=== PATIENT | female | born 1945 | race Caucasian/White ===

== ENCOUNTER 2016-12-09 14:09 | Observation (INO) | payer OTHER ==
[~2016-12-09] VITALS: Ht 167.6 cm; Wt 65.0 kg
[2016-12-09 14:09] VITALS: BP 178/83; PULSE 89; RESP 16; TEMP 97.8; O2SAT 97
[~2016-12-09 14:09] MED LIST: LACT20SO4 PO; TAB-TAB PO
--- NOTE | 2016-12-09 14:57 | PD ---
HPI Chief Complaint: Medical Clearance Time Seen by Provider: 14:57 Travel History International Travel<30 days: No Contact w/Intl Traveler<30days: No Traveled to known affect area: No History of Present Illness HPI 71-year-old female with a history of CAD, CVA, diabetes, GERD, hypertension, metastatic breast cancer currently receiving chemotherapy last dose 12/01/16 is brought to the emergency department for medical clearance and psychiatric evaluation. The patient is not completely sure why she was brought to the emergency department. She states that she is having some social issues amongst some of the other residents at her assisted living facility but states she has a safe home environment and is able to take care of herself at home. She was sent here from Dr. Ceron' office for psychiatric evaluation. The patient denies any fever, chills, nausea, vomiting, lightheadedness, dizziness, chest pain, short of breath, abdominal pain. She denies suicidal or homicidal ideations. Denies alcohol or drug use. Denies auditory or visual hallucinations. No other complaints. PFSH Past Medical History Arthritis: Yes Anxiety: No Depression: No Heart Rhythm Problems: Yes Cancer: Yes (right breast) Cardiac Catheterization: Yes (STENT PLACEMENT) Cardiovascular Problems: Yes Chest Pain: Yes Cerebrovascular Accident: Yes Diabetes: Yes Patient Takes Glucophage: Yes Diminished Hearing: No Endocrine: Yes (DIABETES) Gastrointestinal Disorders: Yes (gerd) GERD: Yes Genitourinary: No Hepatitis: No Hiatal Hernia: Yes Hypertension: Yes Immune Disorder: No Implanted Vascular Access Dvce: Yes Musculoskeletal: Yes (HIP) Neurologic: No Psychiatric: No Reproductive: Yes (HYSTERCTOMY) Respiratory: No Thyroid Disease: No PNEUMOCCOCAL Vaccine (Year): 1 Menopausal: Yes : 1 Para: 2 Past Surgical History Surgical History: Unable to Obtain Abdominal Surgery: Yes (HYSTERECTOMY) Appendectomy: Yes Body Medical Devices: L HIP REPLACEMENT Cardiac Surgery: Yes (OPEN HEART pacemaker) Section: Yes Cholecystectomy: Yes Endocrine Surgery: Yes Genitourinary Surgery: No Gynecologic Surgery: Yes Hysterectomy: Yes Joint Replacement: Yes (left hip replacement) Pacemaker: Yes (MEDTRONIC) Other Surgery: Yes Social History Alcohol Use: Yes (OCC) Tobacco Use: No (yrs ago) Substance Use: No Allergies-Medications (Allergen,Severity, Reaction): Coded Allergies: No Known Allergies (Verified , 5/23/16) Reported Meds & Prescriptions Reported Meds & Active Scripts Active Reported Remeron (Mirtazapine) 15 Mg Tab 7.5 Mg PO DAILY Glucophage (Metformin HCl) 500 Mg Tab 1,000 Mg PO BID With meals Review of Systems Except as stated in HPI: all other systems reviewed are Neg Physical Exam Narrative GENERAL: Well-nourished and well-developed pleasant elderly female patient in no acute distress who is nontoxic appearing. SKIN: Warm and dry. HEAD: Normocephalic and atraumatic. No facial droop. EYES: No injection, drainage, or hyphema noted. PERRLA. EOMI. ENT: No nasal drainage noted. Oropharynx is clear. NECK: Supple and the trachea is midline. CARDIOVASCULAR: Regular rate and rhythm. RESPIRATORY: Breath sounds are equal bilaterally with no accessory muscle use, wheezing, rhonchi, or crackles. GASTROINTESTINAL: Abdomen is soft, non-tender, and nondistended. MUSCULOSKELETAL: No obvious deformities, swelling, cyanosis, or ecchymosis is present throughout the upper and lower extremities. Patient has full range of motion without any signs of neurovascular compromise. Strength 5/5 upper and lower extremities equal bilaterally. NEUROLOGICAL: Awake, alert, and oriented. Normal speech and gait. Cranial nerves are grossly intact. Data Data Last Documented VS Vital Signs Date Time Temp Pulse Resp B/P Pulse Ox O2 Delivery O2 Flow Rate FiO2 12/09/16 17:07 98.4 89 20 173/74 97 Room Air Orders Complete Blood Count With Diff (12/09/16 14:59) Comprehensive Metabolic Panel (12/09/16 14:59) Urinalysis - C+S If Indicated (12/09/16 14:59) Drug Screen, Random Urine (12/09/16 15:06) Alcohol (Ethanol) (12/09/16 15:06) Psych Screen (12/09/16 15:06) Ct Brain W/O Iv Contrast(Rout) (12/09/16 16:35) Diet 1800 Ada Cons Carb (12/09/16 Dinner) Vital Signs (Adult) SARAH.Q4H (12/09/16 18:02) ^ Blood Glucose Goal (Criteria (12/09/16 18:02) ^ Hypoglycemia 51 - 69 Mg/Dl (12/09/16 18:02) ^ Hypoglycemia 50 Mg/Dl Or < (12/09/16 18:02) ^ Notify Dr: Other (12/09/16 18:02) Dextrose 50% In Darlin (Vial) Inj (D50w (Vi (12/09/16 18:15) Glucagon Inj (Glucagon Inj) (12/09/16 18:15) Insulin Aspart Supplemtl Scale (Novolog (12/09/16 21:00) Us Carotid Arteries Comp Bilat (12/09/16 ) Neuro Checks . ORDERED (12/09/16 18:02) Admit Order (Ed Use Only) (12/09/16 18:06) Labs Laboratory Tests Test 12/09/16 15:00 White Blood Count 3.4 TH/MM3 Red Blood Count 4.01 MIL/MM3 Hemoglobin 12.0 GM/DL Hematocrit 35.2 % Mean Corpuscular Volume 87.6 FL Mean Corpuscular Hemoglobin 30.0 PG Mean Corpuscular Hemoglobin 34.2 % Concent Red Cell Distribution Width 13.9 % Platelet Count 223 TH/MM3 Mean Platelet Volume 9.9 FL Neutrophils (%) (Auto) 39.6 % Lymphocytes (%) (Auto) 49.7 % Monocytes (%) (Auto) 8.2 % Eosinophils (%) (Auto) 1.2 % Basophils (%) (Auto) 1.3 % Neutrophils # (Auto) 1.4 TH/MM3 Lymphocytes # (Auto) 1.7 TH/MM3 Monocytes # (Auto) 0.3 TH/MM3 Eosinophils # (Auto) 0.0 TH/MM3 Basophils # (Auto) 0.0 TH/MM3 CBC Comment DIFF FINAL Differential Comment Urine Color LIGHT-YELLOW Urine Turbidity CLEAR Urine pH 6.5 Urine Specific [place] 1.012 Urine Protein NEG mg/dL Urine Glucose (UA) 1000 mg/dL Urine Ketones NEG mg/dL Urine Occult Blood NEG Urine Nitrite NEG Urine Bilirubin NEG Urine Urobilinogen LESS THAN 2.0 MG/DL Urine Leukocyte Esterase TRACE Urine WBC 1 /hpf Urine Squamous Epithelial <1 /hpf Cells Urine Mucus FEW /lpf Microscopic Urinalysis Comment CULT NOT INDICATED Sodium Level 140 MEQ/L Potassium Level 3.7 MEQ/L Chloride Level 104 MEQ/L Carbon Dioxide Level 29.3 MEQ/L Anion Gap 7 MEQ/L Blood Urea Nitrogen 11 MG/DL Creatinine 0.70 MG/DL Estimat Glomerular Filtration 82 ML/MIN Rate Random Glucose 193 MG/DL Calcium Level 9.1 MG/DL Total Bilirubin 0.3 MG/DL Aspartate Amino Transf 21 U/L (AST/SGOT) Alanine Aminotransferase 25 U/L (ALT/SGPT) Alkaline Phosphatase 78 U/L Total Protein 8.0 GM/DL Albumin 4.1 GM/DL Urine Opiates Screen NEG Urine Barbiturates Screen NEG Urine Amphetamines Screen NEG Urine Benzodiazepines Screen NEG Urine Cocaine Screen NEG Urine Cannabinoids Screen NEG Ethyl Alcohol Level 3 MG/DL MDM Medical Decision Making Medical Screen Exam Complete: Yes Emergency Medical Condition: Yes Differential Diagnosis Differential: Depression versus adjustment reaction versus anxiety versus PTSD versus psychosis NOS versus mood disorder NOS versus substance induced mood disorder versus ODD versus adjustment reaction versus schizophrenia versus bipolar disorder versus schizoaffective versus electrolyte abnormality versus dementia versus malingering. Narrative Course 71-year-old female is brought to the emergency department for psychiatric evaluation. Patient is afebrile, vital signs are stable. Patient has no medical complaints to report. Physical examination is unremarkable. No focal neurologic deficits. Labs have been drawn and sent. Psych screening was ordered. I had an extensive discussion with Dr. Ceron regarding this patient. Apparently per Dr. Ceron the patient was brought to her office this morning by her [employer] tele[employer] case manager Blessing Rangel who told the office staff at Dr. Ceron's office that the patient had deplorable living conditions for someone undergoing chemotherapy and that she needed psychiatric evaluation and potential placement changes. The patient lives at [facility]. Apparently there was also some concern for lice although the patient denies any scalp itching or history of lice. I looked through the patient's entire scalp and did not see any louse, there was a little bit of dandruff noted. Dr. Ceron explained to me that the patient has been easily upset emotionally in the past but this is not new, she is suspicious of a personality disorder and would like the patient to have psych evaluation to make sure she is not decompensating. I placed a call to [employer] case manager Blessing Rangel am awaiting call back. [id number] [employer] returned my call, she reports she has been taking care of the patient for about 2 months. States that the patient called her this morning in distress stating she did not know where she was. States through conversation with the patient she discerned that she was at a restaurant and drove there to meet the patient. States that when she found the patient the patient was extremely confused, did not know where she was or the year. States that she has never seen the patient confused like this before, states that she does have transient memory issues but never this extent of confusion. States that she called EMS who came and evaluated the patient at the restaurant but ultimately did not transport the patient by EMS. States she then drove the patient to Dr. Ceron' office because she was close by there and thought they would know her better. States her confusion had almost completely resolved by the time she reached the oncology office, this being a total of 3-4 hours of mental status change. She denies ever seeing any objective neurologic deficit such as weakness, facial droop, slurred speech. Given this newfound history, we'll obtain a head CT. Head CT is negative. The patient has a history of stroke in the past. She will be admitted for TIA/CVA work-up as well as psychiatric consultation. I discussed the case with my attending physician Dr. Rodas who is aware of the patients history, physical examination findings, and treatment plan. Physician Communication Physician Communication Dr. Ceron, see above documentation. I spoke with Clifford Mcgarry [facility] who agrees to admit the patient to his service. Diagnosis Primary Impression: Altered mental status Qualified Code: R41.82 - Altered mental status, unspecified altered mental status type Admitting Information Admitting Physician Requests: Observation Cheyenne Howard Dec 09, 2016 14:57
[2016-12-09 15:21] LABS: AUTOMATED NEUTROPHIL # 1.4 TH/MM3 (1.8-7.7); BASOPHIL % 1.3 % (0.0-2.0); EOSINOPHIL % 1.2 % (0.0-4.0); HEMATOCRIT 35.2 % (35.0-46.0); HEMO FLAGS DIFF FINAL; LYMPH % 49.7 % (9.0-44.0); LYMPHOCYTE # 1.7 TH/MM3 (1.0-4.8); MEAN CELL VOLUME 87.6 FL (80.0-100.0); MEAN CORPUSCULAR HGB CONC 34.2 % (32.0-36.0); MONO % 8.2 % (0.0-8.0); NEUT % 39.6 % (16.0-70.0); PLATELET COUNT 223 TH/MM3 (150-450); RED BLOOD COUNT 4.01 MIL/MM3 (4.00-5.30); RED CELL DISTRIBUTION WIDTH 13.9 % (11.6-17.2); WHITE BLOOD COUNT 3.4 TH/MM3 (4.0-11.0)
[2016-12-09 15:27] LABS: AMPHETAMINE, URINE NEG (NEG); BARBITURATES, URINE NEG (NEG); COCAINE, URINE NEG (NEG)
[2016-12-09 15:28] LABS: BLOOD, URINE NEG (NEG); COMMENT (UR) CULT NOT INDICATED; CULTURE IF INDICATED CULT NOT INDICATED; GLUCOSE,URINE 1000 mg/dL (NEG); KETONE, URINE NEG (NEG); MUCUS URINE FEW /lpf (OCC); NITRITE,URINE NEG (NEG); PH, URINE 6.5 (5.0-8.5); SQUAMOUS EPITHELIAL CELL URINE <1 /hpf (0-5); URINE COLOR LIGHT-YELLOW (YELLW/STRAW)
[2016-12-09 15:51] LABS: ALT (GPT) 25 U/L (10-53); ANION GAP 7 MEQ/L (5-15); AST (GOT) 21 U/L (15-37); BICARBONATE 29.3 MEQ/L (21.0-32.0); BLOOD UREA NITROGEN 11 MG/DL (7-18); CHLORIDE 104 MEQ/L (98-107); GLOMERULAR FILTRATION RATE 82 ML/MIN (>89); POTASSIUM 3.7 MEQ/L (3.5-5.1); SODIUM (NA) 140 MEQ/L (136-145)
[2016-12-09 15:53] LABS: ALKALINE PHOSPHATASE 78 U/L (45-117); TOTAL BILIRUBIN ADULT 0.3 MG/DL (0.2-1.0)
[2016-12-09] MEDS ORDERED: METF500 PO (16:05)
[2016-12-09] MEDS ORDERED: REME15TA PO (16:06)
[2016-12-09 17:07] VITALS: BP 173/74; PULSE 89; RESP 20; TEMP 98.4; O2SAT 97
--- NOTE | 2016-12-09 17:37 | RADRPT ---
EXAM DATE/TIME: 12/09/2016 17:30 [facility] COMPARISON: No previous studies available for comparison. INDICATIONS : Altered mental status; confusion. RADIATION DOSE: 40.14 CTDIvol (mGy) MEDICAL HISTORY : Cerebrovascular disease. Cardiovascular disease Carcinoma, breast. SURGICAL HISTORY : None. ENCOUNTER: Initial ACUITY: 1 day PAIN SCALE: 0/10 LOCATION: cranial TECHNIQUE: Multiple contiguous axial images were obtained of the head. Using automated exposure control and adj ustment of the mA and/or kV according to patient size, radiation dose was kept as low as reasonably a chievable to obtain optimal diagnostic quality images. FINDINGS: CEREBRUM: The ventricles are normal for age. No evidence of midline shift, mass lesion, hemorrhage or acute in farction. No extra-axial fluid collections are seen. POSTERIOR FOSSA: The cerebellum and brainstem are intact. The 4th ventricle is midline. The cerebellopontine angle i s unremarkable. EXTRACRANIAL: The visualized portion of the orbits is intact. SKULL: The calvaria is intact. No evidence of skull fracture. CONCLUSION: Normal examination for a patient of this age. Garrick Omalley MD on December 09, 2016 at 17:35 Board Certified Radiologist. This report was verified electronically.
[2016-12-09] MEDS ORDERED: GLUCAGON 1 MG/ML VIAL OTHER PRN (18:15)
[2016-12-09] MEDS ORDERED: DEXTROSE 50% IN WATER 50 ML VIAL(D50) IV PUSH PRN (18:15)
--- NOTE | 2016-12-09 18:26 | HHI.HP ---
[facility] Primary Care Physician Jd Bell MD Admission Diagnosis Altered Mental Status Diagnoses: (1) Altered mental status Diagnosis: Principal Chief Complaint: confusional episode Travel History International Travel<30 Days: No Contact w/Intl Traveler <30 Da: No Traveled to Known Affected Are: No History of Present Illness patient is a 71 y/o female with history of metastatic breast cancer, CAD, CVA and diabetes who was brought to ER with confusional episode. apparently the patient was noticed to be disoriented and confused by [employer] residential case manager earlier today. the patient was advised to come to ER by for psychiatric evaluation. at the time of my evaluation she was awake, alert, oriented to person, place and time. she knows that she got confused earlier today. she doesn't recall any previous episodes of confusion in the past. Review of Systems Constitutional: DENIES: Fever, Weight loss, Chills, Night Sweats Eyes: DENIES: Blurred vision, Diplopia, Vision loss, Double Vision Ears, nose, mouth, throat: DENIES: Tinnitus, Vertigo, Throat pain, Epistaxis Respiratory: DENIES: Apneas, Cough, Snoring, Wheezing, Hemoptysis, Sputum production, Shortness of breath Cardiovascular: DENIES: Chest pain, Palpitations, Syncope, Dyspnea on Exertion , PND, Lower Extremity Edema, Orthopnea, Claudication Gastrointestinal: DENIES: Abdominal pain, Black stools, Bloody stools, Constipation, Diarrhea, Nausea, Vomiting, Difficulty Swallowing, Anorexia Genitourinary: DENIES: Urinary frequency, Urgency, Hematuria, Dysuria Musculoskeletal: DENIES: Joint pain, Muscle aches, Stiffness, Joint Swelling Integumentary: DENIES: Rash Neurologic: DENIES: Abnormal gait, Headache, Localized weakness, Paresthesias, Seizures, Speech Problems, Tremor, Poor Balance Psychiatric: COMPLAINS OF: Confusion, DENIES: Anxiety, Mood changes, Depression, Hallucinations, Agitation, Suicidal Ideation, Homicidal Ideation, Delusions Past Family Social History Past Medical History metastatic breast cancer CAD CVA diabetes mellitus Past Surgical History CABG hysterectomy hip surgery Reported Medications Remeron (Mirtazapine) 15 Mg Tab 7.5 Mg PO DAILY Glucophage (Metformin HCl) 500 Mg Tab 1,000 Mg PO BID With meals Allergies: Coded Allergies: No Known Allergies (Verified , 04/06/16) Active Ordered Medications Current Medications Dextrose (D50w (Vial) Inj) 25 ml UNSCH PRN IV PUSH HYPOGLYCEMIA-SEE COMMENTS; Start 12/09/16 at 18:15; Status UNV Glucagon (Glucagon Inj) 1 mg UNSCH PRN OTHER HYPOGLYCEMIA-SEE COMMENTS; Start 12/09/16 at 18:15; Status UNV Insulin Aspart (NovoLOG SUPPLEMENTAL SCALE) 1 ACHS SLIDING SCALE SQ ; Start at 21:00; Status UNV Family History not relevant to this admission. Social History no smoking or drinking. Physical Exam Vital Signs Vital Signs Date Time Temp Pulse Resp B/P Pulse Ox O2 Delivery O2 Flow Rate FiO2 12/09/16 17:07 98.4 89 20 173/74 97 Room Air 12/09/16 14:09 97.8 89 16 178/83 97 Physical Exam GENERAL: This is a well-nourished, well-developed patient, in no apparent distress. SKIN: No rashes, ecchymoses or lesions. Cool and dry. HEAD: Atraumatic. Normocephalic. No temporal or scalp tenderness. EYES: Pupils equal round and reactive. Extraocular motions intact. No scleral icterus. No injection or drainage. ENT: Nose without bleeding, purulent drainage or septal hematoma. Throat without erythema, tonsillar hypertrophy or exudate. Uvula midline. Airway patent. NECK: Trachea midline. No JVD or lymphadenopathy. Supple, nontender, no meningeal signs. CARDIOVASCULAR: Regular rate and rhythm without murmurs, gallops, or rubs. RESPIRATORY: Clear to auscultation. Breath sounds equal bilaterally. No wheezes , rales, or rhonchi. GASTROINTESTINAL: Abdomen soft, non-tender, nondistended. No hepato-splenomegaly , or palpable masses. No guarding. MUSCULOSKELETAL: Extremities without clubbing, cyanosis, or edema. No joint tenderness, effusion, or edema noted. No calf tenderness. Negative Homans sign bilaterally. NEUROLOGICAL: Awake and alert. Cranial nerves II through XII intact. Motor and sensory grossly within normal limits. Five out of 5 muscle strength in all muscle groups. Normal speech. Laboratory Laboratory Tests Test 12/09/16 15:00 White Blood Count 3.4 Red Blood Count 4.01 Hemoglobin 12.0 Hematocrit 35.2 Mean Corpuscular Volume 87.6 Mean Corpuscular Hemoglobin 30.0 Mean Corpuscular Hemoglobin 34.2 Concent Red Cell Distribution Width 13.9 Platelet Count 223 Mean Platelet Volume 9.9 Neutrophils (%) (Auto) 39.6 Lymphocytes (%) (Auto) 49.7 Monocytes (%) (Auto) 8.2 Eosinophils (%) (Auto) 1.2 Basophils (%) (Auto) 1.3 Neutrophils # (Auto) 1.4 Lymphocytes # (Auto) 1.7 Monocytes # (Auto) 0.3 Eosinophils # (Auto) 0.0 Basophils # (Auto) 0.0 CBC Comment DIFF FINAL Differential Comment Urine Color LIGHT-YELLOW Urine Turbidity CLEAR Urine pH 6.5 Urine Specific Ong 1.012 Urine Protein NEG Urine Glucose (UA) 1000 Urine Ketones NEG Urine Occult Blood NEG Urine Nitrite NEG Urine Bilirubin NEG Urine Urobilinogen LESS THAN 2.0 Urine Leukocyte Esterase TRACE Urine WBC 1 Urine Squamous Epithelial <1 Cells Urine Mucus FEW Microscopic Urinalysis Comment CULT NOT INDICATED Sodium Level 140 Potassium Level 3.7 Chloride Level 104 Carbon Dioxide Level 29.3 Anion Gap 7 Blood Urea Nitrogen 11 Creatinine 0.70 Estimat Glomerular Filtration 82 Rate Random Glucose 193 Calcium Level 9.1 Total Bilirubin 0.3 Aspartate Amino Transf 21 (AST/SGOT) Alanine Aminotransferase 25 (ALT/SGPT) Alkaline Phosphatase 78 Total Protein 8.0 Albumin 4.1 Urine Opiates Screen NEG Urine Barbiturates Screen NEG Urine Amphetamines Screen NEG Urine Benzodiazepines Screen NEG Urine Cocaine Screen NEG Urine Cannabinoids Screen NEG Ethyl Alcohol Level 3 Result Diagram: 12/09/16 1500 12/09/16 1500 Imaging Last Impressions Head CT 12/09/16 1635 Signed Impressions: Service Date/Time: Friday, December 09, 2016 17:30 - CONCLUSION: Normal examination for a patient of this age. Garrick Omalley MD Assessment and Plan Assessment and Plan A/P - confusional episode with history of CVA CT head normal- continue neuro-checks- check carotid doppler and consult neurology and psych -metastatic breast cancer- f/u with -CAD- s/p CABG- f/u as outpatient -DVT prophylaxis with SCD's Discussed Condition With ER physician, the patient and her RN. Problem Qualifiers (1) Altered mental status: Qualified Code: R41.82 - Altered mental status, unspecified altered mental status type Ethan Horton MD Dec 09, 2016 18:26
[2016-12-09] MEDS ORDERED: ACETAMINOPHEN 325 MG TAB PO PRN (18:30)
[2016-12-09] MEDS ORDERED: ONDANSETRON HCL 4 MG/2 ML VIAL IV PUSH PRN (18:30)
[2016-12-09] MEDS ORDERED: ENALAPRILAT 1.25 MG/ML VIAL IV PUSH PRN (18:30)
[2016-12-09 18:53] VITALS: BP 150/87; PULSE 83; RESP 18; O2SAT 97
--- NOTE | 2016-12-09 19:53 | RADRPT ---
EXAM DATE/TIME: 12/09/2016 18:55 [facility] COMPARISON: No previous studies available for comparison. INDICATIONS : Transient ischemic attack. MEDICAL HISTORY : Gastroesophageal reflux disease. . Cerebrovascular accident. Irregular heartbeat. Hiatal h ernia. Arthritis. Diabetes. Right breast cancer. SURGICAL HISTORY : Pacemaker. Appendectomy. Cholecystectomy. Hysterectomy. Coronary artery stent. Left hip replacement. ENCOUNTER: Initial ACUITY: 1 day PAIN SCORE: 0/10 LOCATION: Bilateral neck PEAK SYSTOLIC VELOCITIES (cm/sec): ICA/CCA RATIO: Right: 1.7 Left: 0.8 ICA: Right: 114 Left: 72 CCA: Right: 68 Left: 91 ECA: Right: 105 Left: 111 VERTEBRAL: Right: 62 antegrade Left: 52 antegrade Elevated flow velocities and ICA/CCA ratios have been found to correlate with increased degrees of vessel stenosis, calculated as percentage of diameter relative to a normal segment of distal ICA/CCA FINDINGS: RIGHT CAROTID: No significant stenosis is visualized. Mild calcific plaque is present in the bulb. The waveforms ar e within normal limits. LEFT CAROTID: No significant stenosis is visualized. Mild calcific plaque is present in the bulb. The waveforms are within normal limits. VERTEBRAL ARTERIES: Antegrade flow is seen in both vertebral arteries. MISCELLANEOUS: None. CONCLUSION: Mild bilateral calcific plaquing with no evidence of stenosis. Deepak Martin MD on December 09, 2016 at 19:51 Board Certified Radiologist. This report was verified electronically.
[2016-12-09] MEDS: INSULIN ASPART SUPPLEMENTAL SCALE SQ SCH (22:25)
[2016-12-09 23:16] VITALS: BP 132/74; PULSE 74; RESP 16; O2SAT 98
[2016-12-10] VITALS (8 sets, daily range): BP systolic 140–176; BP diastolic 66–96; PULSE 68–79; RESP 16–20; TEMP 96.6–97.4; O2SAT 96–100
[2016-12-10] MEDS: INSULIN ASPART SUPPLEMENTAL SCALE SQ SCH ×4 (07:00→21:46)
--- NOTE | 2016-12-10 09:47 | HHI.PR ---
Subjective Remarks resting comfortably with no distress. still seems pleasantly and slightly confused. Objective Vitals Vital Signs Date Time Temp Pulse Resp B/P Pulse Ox O2 Delivery O2 Flow Rate FiO2 12/10/16 03:57 68 16 100 Room Air 12/09/16 23:16 74 16 132/74 98 Room Air 12/09/16 18:53 83 18 150/87 97 Room Air 12/09/16 17:07 98.4 89 20 173/74 97 Room Air 12/09/16 14:09 97.8 89 16 178/83 97 Result Diagram: 12/09/16 1500 12/09/16 1500 Imaging Last Impressions Head CT 12/09/16 1635 Signed Impressions: Service Date/Time: Friday, December 09, 2016 17:30 - CONCLUSION: Normal examination for a patient of this age. Garrick Omalley MD Carotid Artery Ultrasound 12/09/16 0000 Signed Impressions: Service Date/Time: Friday, December 09, 2016 18:55 - CONCLUSION: Mild bilateral calcific plaquing with no evidence of stenosis. Deepak Martin MD Objective Remarks GENERAL: This is a well-nourished, well-developed patient, in no apparent distress. CARDIOVASCULAR: Regular rate and regular rhythm without murmurs, gallops, or rubs. RESPIRATORY: Clear to auscultation. Breath sounds equal bilaterally. No wheezes , rales, or rhonchi. GASTROINTESTINAL: Abdomen soft, non-tender, nondistended. Normal, active bowel sounds MUSCULOSKELETAL: Extremities without clubbing, cyanosis, or edema. NEURO: Alert & Oriented x4 to person, place, time, situation. Moves all ext x4 Procedures none Medications and IVs Current Medications Dextrose (D50w (Vial) Inj) 25 ml UNSCH PRN IV PUSH HYPOGLYCEMIA-SEE COMMENTS; Start 12/09/16 at 18:15 Glucagon (Glucagon Inj) 1 mg UNSCH PRN OTHER HYPOGLYCEMIA-SEE COMMENTS; Start 12/09/16 at 18:15 Insulin Aspart (NovoLOG SUPPLEMENTAL SCALE) 1 ACHS SLIDING SCALE SQ Last administered on 12/09/16t 22:25; Start 12/09/16 at 21:00 Ondansetron HCl (Zofran Inj) 4 mg Q8HR PRN IV PUSH NAUSEA; Start 12/09/16 at 18 :30 Acetaminophen (Tylenol) 650 mg Q4H PRN PO FEVER/PAIN; Start 12/09/16 at 18:30 Enalaprilat (Vasotec Inj) 1.25 mg Q8H PRN IV PUSH SBP> OR = 180, DBP> OR = 100 ; Start 12/09/16 at 18:30 A/P Assessment and Plan - confusional episode with history of CVA CT head normal- carotid doppler negative-continue neuro-checks- consulted neurology and psych. -metastatic breast cancer- f/u with -CAD- s/p CABG- f/u as outpatient -DVT prophylaxis with SCD's Discharge Planning awaiting psych and neurology evaluation. Ethan Horton MD Dec 10, 2016 09:47
--- NOTE | 2016-12-10 11:52 | RADRPT ---
EXAM DATE/TIME: 12/10/2016 11:32 [facility] COMPARISON: CHEST SINGLE AP, January 24, 2016, 16:20. INDICATIONS : Chest pain. MEDICAL HISTORY : Carcinoma, breast. SURGICAL HISTORY : CABG. Mastectomy, bilateral. Port placement. ENCOUNTER: Initial ACUITY: 1 day PAIN SCORE: 2/10 LOCATION: Bilateral chest FINDINGS: Frontal and lateral views of the chest demonstrate a normal-sized cardiac silhouette in this patient post median sternotomy and valve replacement. Coronary artery stent is also visualized. There is a le ft chest wall [id number] present with distal tip in the superior vena cava. No effusion, consolida tion, or pneumothorax is identified. Bones and soft tissues demonstrate no acute finding. CONCLUSION: No acute cardiopulmonary abnormality is identified. Jd Alexander MD on December 10, 2016 at 11:49 Board Certified Radiologist. This report was verified electronically.
[2016-12-10] MEDS: OLANZapine 2.5 MG TAB PO SCH ×2 (12:00→21:45)
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
--- NOTE | 2016-12-10 16:20 | EKG ---
Date Performed: 12/09/2016 Time Performed: 20:00:03 PTAGE: 71 years EKG: Sinus rhythm WITH FIRST DEGREE AV BLOCK INFERIOR MYOCARDIAL INFARCTION Compared to prior tracing no significant c hange ABNORMAL ECG PREVIOUS TRACING 11/01/2015 @00.00.16 DOCTOR: Rafi Thompson Interpretating Date/Time 12/10/2016 16:18:46
[2016-12-10] MEDS ORDERED: GADODIAMIDE PF 287 MG/ML 5 ML VIAL (for RAD MRI) IV ONE (17:03)
--- NOTE | 2016-12-10 17:48 | RADRPT ---
EXAM DATE/TIME: 12/10/2016 16:52 [facility] COMPARISON: No previous studies available for comparison. INDICATIONS : Altered mental status. CONTRAST: 13 cc Omniscan (gadodiamide) IV MEDICAL HISTORY : Carcinoma, breast. Arthritis. Gastroesophageal reflux disease. Diabetes. SURGICAL HISTORY : Hysterectomy. Appendectomy. Cholecystectomy. Port placement. Bi-lateral mastectomy. Cardiac stent. Ca rdiac valve replacement. Left DEISY. Pacemaker placement and removal. ENCOUNTER: Subsequent ACUITY: 2 day PAIN SCORE: 0/10 LOCATION: cranial TECHNIQUE: Multiplanar, multisequence MRI of the brain was performed both prior to and following the administrat ion of paramagnetic contrast. FINDINGS: CEREBRUM: The ventricles are normal for age. No evidence of midline shift, mass lesion, hemorrhage or acute in farction. No extraaxial fluid collections are seen. The pituitary gland and suprasellar cistern are normal in configuration. WHITE MATTER: There are some scattered areas of increased T2 signal in the white matter most consistent with mild m icrovascular ischemic demyelinative change. No significant signal abnormalities are seen in the white matter. POSTERIOR FOSSA: The cerebellum and brainstem are intact. The 4th ventricle is midline. The cerebellopontine angle is unremarkable. The cerebellar tonsils are normal in position. DIFFUSION IMAGING: No focal areas of restricted diffusion are seen. No evidence of acute infarction. EXTRACRANIAL: The visualized portions of the orbits and paranasal sinuses are unremarkable. POST-CONTRAST: No abnormal areas of parenchymal or dural enhancement. No evidence of blood-brain barrier breakdown. CONCLUSION: 1. Negative examination. Migel Roa MD on December 10, 2016 at 17:42 Board Certified Radiologist. This report was verified electronically.
[2016-12-11 03:42] VITALS: BP 150/68; PULSE 70; RESP 19; TEMP 96.9; O2SAT 96
[2016-12-11] MEDS: INSULIN ASPART SUPPLEMENTAL SCALE SQ SCH ×3 (06:28→17:29)
--- NOTE | 2016-12-11 07:01 | MG ---
cc: GLORIA KOLB M.D. Lab No: [id number]___ Date: 12/10/2016 Age: 71 Sex: F Race: __ INDICATIONS An EEG was obtained on this 71-year-old patient with a history of social issues, CVA, confusion, pacemaker. MEDICATIONS REMERON, INSULIN, GLUCOPHAGE DESCRIPTION The EEG is showing predominantly low to mid amplitude 8-10 per second activity in the central and posterior head regions. There is low amplitude beta rhythms diffusely. Photic stimulation shows some driving response bilaterally. There are theta and delta rhythms during the drowsiness recording. Hyperventilation was not performed. INTERPRETATION This is a normal awake and asleep EEG. MD TARI Patel/MICHELLE /7:58 PM /6:58 AM
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
[2016-12-11] MEDS ORDERED: OLAN2.5T PO (07:47)
--- NOTE | 2016-12-11 07:47 | HHI.DCPOC ---
Discharge Care Plan Diagnosis: (1) Unspecified psychosis Your Health Problems Are: Anxiety Difficulty with ADL Goals to Promote Your Health * To prevent worsening of your condition and complications * To maintain your health at the optimal level Directions to Meet Your Goals Take your medications as prescribed Follow your dietary instruction Follow activity as directed Keep your appointments as scheduled Take your immunizations and boosters as scheduled If your symptoms worsen call your PCP, if no PCP go to Urgent Care Center or Emergency Room Smoking is Dangerous to Your Health. Avoid second hand smoke Call the 24-hour hour crisis hotline for domestic abuse at Ethan Horton MD Dec 11, 2016 07:47
--- NOTE | 2016-12-11 07:48 | HHI.DS ---
Discharge Summary Admission Date Dec 09, 2016 at 18:07 Discharge Date: Dec 11, 2016 Admitting Diagnosis Altered Mental Status (1) Altered mental status ICD Code: R41.82 Diagnosis: Principal (2) Unspecified psychosis ICD Code: F29 Diagnosis: Principal Procedures none Brief History - From Admission patient is a 71 y/o female with history of metastatic breast cancer, CAD, CVA and diabetes who was brought to ER with confusional episode. apparently the patient was noticed to be disoriented and confused by [employer] sample case porter earlier today. the patient was advised to come to ER by for psychiatric evaluation. at the time of my evaluation she was awake, alert, oriented to person, place and time. she knows that she got confused earlier today. she doesn't recall any previous episodes of confusion in the past. CBC/BMP: 12/09/16 1500 12/09/16 1500 Significant Findings Laboratory Tests Test 12/09/16 15:00 White Blood Count 3.4 TH/MM3 (4.0-11.0) Lymphocytes (%) (Auto) 49.7 % (9.0-44.0) Monocytes (%) (Auto) 8.2 % (0.0-8.0) Neutrophils # (Auto) 1.4 TH/MM3 (1.8-7.7) Urine Glucose (UA) 1000 mg/dL (NEG) Urine Leukocyte Esterase TRACE (NEG) Urine Mucus FEW /lpf (OCC) Estimat Glomerular Filtration 82 ML/MIN (>89) Rate Random Glucose 193 MG/DL (74-106) Imaging Last Impressions Chest X-Ray 12/10/16 0000 Signed Impressions: Service Date/Time: November 11:32 - CONCLUSION: No acute cardiopulmonary abnormality is identified. Jd Alexander MD Brain MRI 12/10/16 0000 Signed Impressions: Service Date/Time: November 16:52 - CONCLUSION: 1. Negative examination. Migel Roa MD Head CT 12/09/16 1635 Signed Impressions: Service Date/Time: Friday, December 09, 2016 17:30 - CONCLUSION: Normal examination for a patient of this age. Garrick Omalley MD Carotid Artery Ultrasound 12/09/16 0000 Signed Impressions: Service Date/Time: Friday, December 09, 2016 18:55 - CONCLUSION: Mild bilateral calcific plaquing with no evidence of stenosis. Deepak Martin MD PE at Discharge GENERAL: This is a well-nourished, well-developed patient, in no apparent distress. CARDIOVASCULAR: Regular rate and regular rhythm without murmurs, gallops, or rubs. RESPIRATORY: Clear to auscultation. Breath sounds equal bilaterally. No wheezes , rales, or rhonchi. GASTROINTESTINAL: Abdomen soft, non-tender, nondistended. Normal, active bowel sounds MUSCULOSKELETAL: Extremities without clubbing, cyanosis, or edema. NEURO: Alert & Oriented x4 to person, place, time, situation. Moves all ext x4 Hospital Course - confusional episode with history of CVA CT head normal- carotid doppler negative-MRI brain negative. psych consult appreciated; placed on evans act- needs psych admission. evaluated by neurology. -metastatic breast cancer- f/u with -CAD- s/p CABG- f/u as outpatient -diabetes; resume metformin upon discharge -DVT prophylaxis with SCD's Pt Condition on Discharge: Fair Discharge Disposition: Disc to Psych Care Fac Discharge Time: <= 30 minutes Discharge Instructions DIET: Follow Instructions for: Heart Healthy Diet, Diabetic Diet Activities you can perform: Regular-No Restrictions Follow up Referrals: Oncology PCP Follow-up Psychiatry Adult New Medications: Olanzapine (Olanzapine) 2.5 Mg Tab 2.5 MG PO Q12HR psychosis Days 30 Ref 0 TAB Continued Medications: Metformin (Glucophage) 500 Mg Tab 1000 MG PO BID With meals Blood Sugar Management #60 Ref 0 TAB Discontinued Medications: Mirtazapine (Remeron) 15 Mg Tab 7.5 MG PO DAILY Depression Control #15 Ref 0 TAB Ethan Horton MD Dec 11, 2016 07:48
[2016-12-11 08:26] VITALS: BP 133/67; PULSE 76; RESP 20; TEMP 97.7; O2SAT 97
[2016-12-11] MEDS: OLANZapine 2.5 MG TAB PO SCH (10:03)
[2016-12-11 12:42] VITALS: BP 159/74; PULSE 91; RESP 20; TEMP 97.6; O2SAT 96
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
[2016-12-11 16:45] VITALS: BP 150/76; PULSE 80; RESP 20; TEMP 97.6; O2SAT 96
[2016-12-11] MEDS ORDERED: OLANZapine 5 MG TAB PO SCH (21:00)
== END 2016-12-11 17:58 ==
LOC: NEDAMB 14:09 → NEDA 18:07 → NEDH 22:15 → NEDA 12-10 06:45 → NEPFCDU 12-10 15:27
PROVIDERS: ADMIT Internal Medicine; ATTEND Internal Medicine
DX: R41.82 Altered mental status, unspecified (principal); F29 Unspecified psychosis not due to a substance or known physiological condition; C50.919 Malignant neoplasm of unspecified site of unspecified female breast; F22 Delusional disorders; F41.9 Anxiety disorder, unspecified; E11.9 Type 2 diabetes mellitus without complications; I10 Essential (primary) hypertension; I25.10 Atherosclerotic heart disease of native coronary artery without angina pectoris; K21.9 Gastro-esophageal reflux disease without esophagitis; Z79.84 Long term (current) use of oral hypoglycemic drugs; Z95.1 Presence of aortocoronary bypass graft; Z95.0 Presence of cardiac pacemaker; Z95.2 Presence of prosthetic heart valve; Z95.5 Presence of coronary angioplasty implant and graft; Z86.73 Personal history of transient ischemic attack (TIA), and cerebral infarction without residual deficits; Z96.642 Presence of left artificial hip joint
CPT/HCPCS: 70450; 70553; 71020; 80053; 80307; 80320; 81001; 82140; 82607; 82948; 84443; 85025; 93005; 93880; 95819; 99284; A9579; G0378; J1815

== ENCOUNTER 2016-12-11 15:30 | Inpatient (IN) | payer OTHER, MEDICARE ==
[~2016-12-11] VITALS: Ht 165.1 cm; Wt 71.7 kg
[~2016-12-11 15:30] MED LIST changes: -LACT20SO4 PO; +METF500 PO; +OLAN2.5T PO; +REME15TA PO; -TAB-TAB PO
[2016-12-11 18:10] VITALS: BP 152/71; PULSE 81; RESP 18; TEMP 98.2; O2SAT 98
[2016-12-11] MEDS: MIRTAZAPINE 15 MG TAB PO SCH (20:55)
[2016-12-11] MEDS: OLANZapine 5 MG TAB PO SCH (20:55)
[2016-12-12 06:20] VITALS: BP 157/77; PULSE 83; RESP 16; TEMP 97.8; O2SAT 94
[2016-12-12] MEDS: OLANZapine 5 MG TAB PO SCH ×2 (08:56→20:28)
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
[2016-12-12 18:42] VITALS: BP 152/68; PULSE 86; RESP 16; TEMP 98; O2SAT 99
[2016-12-12] MEDS: MIRTAZAPINE 15 MG TAB PO SCH (20:28)
[2016-12-13 06:29] VITALS: BP 131/86; PULSE 76; RESP 16; TEMP 97.1; O2SAT 98
[2016-12-13] MEDS: OLANZapine 5 MG TAB PO SCH ×2 (08:56→20:31)
--- NOTE | 2016-12-13 15:44 | HHI.PYPN ---
Subjective Remarks This is a second opinion for Dr. Hatfield. Patient was seen, case reviewed with nursing, admission note reviewed. Patient remains delusional that a woman is impersonating her for various secondary gains. Including stealing his Social Security checks. Says that all of her male is open. Outside his fixed delusion there are no auditory visual hallucinations. No bizarre behavior on the unit. She is alert and oriented 3. Denies depressed mood. Denies suicidal ideations thought or plan. Patient was found to have an elevated A1c 8.0 and is not being treated for diabetes. Blood pressure has been mildly elevated Objective Alert: Yes [place]: Person, Place, Date Mood: Anxious Affect: Blunted Memory Intact: Immediate Hallucinations: Other Delusions: Yes Delusion Type: Paranoid Suicidal: Ideation (denies) Homicidal: Ideation (denies) Insight/Judgement Poor Vitals/IOs Vital Signs Date Time Temp Pulse Resp B/P Pulse Ox O2 Delivery O2 Flow Rate FiO2 12/13/16 06:29 97.1 76 16 131/86 98 Assessment & Plan Problem List: (1) Unspecified psychosis ICD Code: F29 Assessment & Plan I agree with first opinion to continue petition. Add lisinopril 5 mg for hypertension. Consult medicine to initiate diabetes treatment. I agree with first opinion to continue petition. Criteria include fixed delusions and disorganized behavior Justification for Cont. Inpt. Patient will decompensate in a less restrictive setting Osito Arnold DO Dec 13, 2016 15:44
[2016-12-13] MEDS ORDERED: LISINOPRIL 5 MG TAB PO SCH (16:00)
--- NOTE | 2016-12-13 16:22 | PD.CONS ---
HPI Service [facility] Hospitalists Consult Requested By Dr. Arnold Reason for Consult Medical management Primary Care Physician Jd Bell MD Diagnoses: (1) Unspecified psychosis (2) Hypertension (3) Diabetes (4) CAD (coronary artery disease) History of Present Illness 71-year-old female with a medical history significant for metastatic breast cancer, CAD, diabetes, hypertension admitted to the psychiatric unit for delusional disorder. The patient was found to have an elevated hemoglobin A1c of 8.0. Her blood pressure has been somewhat elevated as well. Hospitalist service consulted for medical management. Patient reports that her diabetes has been stable with Glucophage. She does not recall whether or not she has been on medication for blood pressure. She could not articulate the circumstances as to why she is in the psychiatric unit. She denies having episodes of shortness of breath or chest pain. No lower extremity edema. Review of Systems Constitutional: DENIES: Dizziness Endocrine: DENIES: Polydipsia, Polyuria Eyes: DENIES: Diplopia Cardiovascular: DENIES: Chest pain, Dyspnea on Exertion, Lower Extremity Edema Gastrointestinal: DENIES: Nausea, Vomiting Musculoskeletal: DENIES: Joint pain Integumentary: DENIES: Rash Neurologic: DENIES: Headache Psychiatric: DENIES: Mood changes Past Family Social History Allergies: Coded Allergies: No Known Allergies (Verified , 04/06/16) Past Medical History Delusional disorders metastatic breast cancer CAD CVA diabetes mellitus Past Surgical History CABG hysterectomy hip surgery Reported Medications Reported Meds & Active Scripts Active Olanzapine 2.5 Mg Tab 2.5 Mg PO Q12HR 30 Days Reported Glucophage (Metformin HCl) 500 Mg Tab 1,000 Mg PO BID With meals Family History Reviewed and Non contributory Social History She does not smoke or drink alcohol Physical Exam Vital Signs Vital Signs Date Time Temp Pulse Resp B/P Pulse Ox O2 Delivery O2 Flow Rate FiO2 12/13/16 06:29 97.1 76 16 131/86 98 12/12/16 18:42 98.0 86 16 152/68 99 Physical Exam CONSTITUTIONAL/GENERAL: This is an adequately nourished patient, in no apparent distress. Talkative. Vital signs reviewed SKIN: No jaundice, rashes, or concerning lesions. Not diaphoretic. HEAD: Atraumatic. Normocephalic. EYES: Pupils equal and round and reactive. Extra ocular motions are intact. No scleral icterus. No injection or drainage. ENT: Hearing grossly normal. Nose without drainage. Throat without visible erythema, exudates, masses, or lesions. NECK: Trachea midline. Neck is supple, non-tender. No palpable thyroid enlargement or nodularity. CARDIOVASCULAR: Normal rate and regular rhythm without murmurs, gallops, or rubs. No JVD. Peripheral pulses 2+ and symmetric. RESPIRATORY/CHEST: Symmetric, unlabored respirations. Breath sounds equal and clear to auscultation bilaterally. No wheezes, crackles, rales, or rhonchi. GASTROINTESTINAL: Abdomen soft, non-tender, non-distended. No hepato- splenomegaly, or palpable masses. No guarding. Bowel sounds present. MUSCULOSKELETAL: Extremities without clubbing, cyanosis, or edema. No joint tenderness or effusion noted. No calf tenderness. No mottling or clubbing. NEUROLOGICAL: Awake and alert. Motor and sensory grossly within normal limits. Follows commands. Move all extremities spontaneously. No focal deficits. PSYCHIATRIC: Patient continues to express some false belief about a women being after her. Assessment and Plan Problem List: (1) Unspecified psychosis ICD Code: F29 Status: Acute Plan: Plan per psychiatry. (2) Diabetes ICD Code: E11.9 Status: Chronic Plan: Patient's hemoglobin A1c is 8. Would continue home dose metformin. Diabetic diet (3) CAD (coronary artery disease) ICD Code: I25.10 Status: Chronic Plan: Patient has a history of [place], stent placement and aortic valve replacement. I see no contraindication to aspirin. Therefore I will start her on a baby aspirin. (4) Hypertension ICD Code: I10 Status: Acute Plan: Medical records reviewed. Patient does have elevated blood pressure. Given the diabetes, agree with lisinopril but I favor a lower dose given her age. Would continue lisinopril at 2.5 mg daily. Assessment and Plan Thank you for allowing me to participate in the patient's care. Will sign off. Please call or reconsult with questions. Problem Qualifiers (1) Diabetes: Mj Hall MD Dec 13, 2016 16:22
[2016-12-13] MEDS ORDERED: PILL SPLITTER OTHER PRN (16:30)
[2016-12-13 19:02] VITALS: BP 189/70; PULSE 82; RESP 18; TEMP 97.5; O2SAT 100
[2016-12-13] MEDS: MIRTAZAPINE 15 MG TAB PO SCH (20:31)
[2016-12-13] MEDS: metFORMIN HCL 500 MG TAB PO SCH (20:31)
[2016-12-14 05:15] VITALS: BP 149/69; PULSE 80; RESP 14; TEMP 98.7; O2SAT 97
[2016-12-14] MEDS: ASPIRIN EC 81 MG TABEC PO SCH (08:58)
[2016-12-14] MEDS: metFORMIN HCL 500 MG TAB PO SCH ×2 (08:58→20:16)
[2016-12-14] MEDS: LISINOPRIL 5 MG TAB PO SCH (08:58)
[2016-12-14] MEDS: OLANZapine 5 MG TAB PO SCH ×2 (08:59→20:16)
--- NOTE | 2016-12-14 11:11 | HHI.PYPN ---
Subjective Remarks Patient was seen and discussed with the waitstaff captain. Patient remained somewhat confused and guarded. Patient also is talking about people at the [facility] trying to steal her belongings and including her identity but other than that she is very pleasant denied any previous inpatient psychiatric hospitalization. She does admit to occasionally talking to herself when she gets easily upset and angry. Denied any suicidal and/or homicidal ideation intentions or plan. No side effects were complained willing to take the medication and even willing to sign voluntary afterwards we will keep an eye. We will assess social research assistant to look into alternative placement. Review of Systems Except as stated in HPI: all other systems reviewed are Neg Psychiatric: COMPLAINS OF: Mood changes, Depression, Agitation, Delusions Objective Alert: Yes [place]: Person, Place, Date Mood: Anxious, Depressed, Other (frustrated) Affect: Blunted Memory Intact: Immediate, Recent (mildly impaired) Hallucinations: Other (patient admitted to occasionally talking to herself) Delusions: Yes Delusion Type: Paranoid Suicidal: Ideation (denies) Homicidal: Ideation (denies) Insight/Judgement Limited to fair Vitals/IOs Vital Signs Date Time Temp Pulse Resp B/P Pulse Ox O2 Delivery O2 Flow Rate FiO2 12/14/16 05:15 98.7 80 14 149/69 97 Assessment & Plan Problem List: (1) Unspecified psychosis ICD Code: F29 Assessment & Plan Estimated LOS: days Justification for Cont. Inpt. Risk of decompensation at a lower level of care Request HC Surrog/Guard Advoc?: No Ezequiel Burr MD Dec 14, 2016 11:11
[2016-12-14 19:44] VITALS: BP 135/69; PULSE 85; RESP 16; TEMP 98.2; O2SAT 99
[2016-12-14] MEDS: MIRTAZAPINE 15 MG TAB PO SCH (20:16)
[2016-12-15 05:51] VITALS: BP 153/67; PULSE 87; RESP 16; TEMP 97.9; O2SAT 96
[2016-12-15] MEDS: ASPIRIN EC 81 MG TABEC PO SCH (09:07)
[2016-12-15] MEDS: OLANZapine 5 MG TAB PO SCH ×3 (09:07→18:06)
[2016-12-15] MEDS: LISINOPRIL 5 MG TAB PO SCH (09:07)
[2016-12-15] MEDS: metFORMIN HCL 500 MG TAB PO SCH ×2 (09:07→20:51)
--- NOTE | 2016-12-15 10:09 | HHI.PYPN ---
Subjective Remarks Patient was seen and discussed with the staff rn. Patient reported that she is been feeling little bit better here and does want to go home soon. But she is somewhat concerned and worried about that person who has stolen her identity patient is still delusional and paranoid. No behavior or management problem reported here. She is compliant in taking medication. She has been having some difficulty sleeping. Continue with the same treatment nephrology social worker to assist in aftercare and discharge planning Review of Systems Except as stated in HPI: all other systems reviewed are Neg Psychiatric: COMPLAINS OF: Confusion, Mood changes, Depression, Delusions Objective Alert: Yes [place]: Person, Place, Date Mood: Anxious, Depressed, Other (frustrated) Affect: Blunted Memory Intact: Immediate, Recent (mildly impaired) Hallucinations: Other (patient admitted to occasionally talking to herself) Delusions: Yes Delusion Type: Paranoid Suicidal: Ideation (denies) Homicidal: Ideation (denies) Insight/Judgement Limited Vitals/IOs Vital Signs Date Time Temp Pulse Resp B/P Pulse Ox O2 Delivery O2 Flow Rate FiO2 12/15/16 05:51 97.9 87 16 153/67 96 Assessment & Plan Problem List: (1) Unspecified psychosis ICD Code: F29 Assessment & Plan Estimated LOS: days Justification for Cont. Inpt. Risk of decompensation Request HC Surrog/Guard Advoc?: No Ezequiel Burr MD Dec 15, 2016 10:09
[2016-12-15 20:35] VITALS: BP 161/70; PULSE 84; RESP 16; TEMP 98.4; O2SAT 98
[2016-12-15] MEDS: MIRTAZAPINE 15 MG TAB PO SCH (20:51)
[2016-12-16 05:54] VITALS: BP 149/79; PULSE 92; RESP 16; TEMP 98.1; O2SAT 100
[2016-12-16] MEDS: LISINOPRIL 5 MG TAB PO SCH (08:31)
[2016-12-16] MEDS: ASPIRIN EC 81 MG TABEC PO SCH (08:32)
[2016-12-16] MEDS: metFORMIN HCL 500 MG TAB PO SCH ×2 (08:32→20:19)
[2016-12-16] MEDS: OLANZapine 5 MG TAB PO SCH ×3 (08:32→17:18)
--- NOTE | 2016-12-16 10:38 | HHI.PYPN ---
Subjective Remarks Patient was seen and discussed with the staffing specialist. Patient remained somewhat pleasantly confused and forgetful. But no behavior or management problem reported. Patient is compliant in taking medication. She still has been somewhat delusional but it seems like its she has a fixed delusion that people are stealing things from her. Her son reportedly wants her to go back to [place] in a may be assisted living facility near him. Patient is agreeable to that idea. Continue with the same treatment Review of Systems Except as stated in HPI: all other systems reviewed are Neg Psychiatric: COMPLAINS OF: Confusion, Mood changes, Depression, Delusions Objective Alert: Yes [place]: Person, Place, Date Mood: Anxious, Depressed, Other (frustrated) Affect: Blunted Memory Intact: Immediate, Recent (mildly impaired) Hallucinations: Other (patient admitted to occasionally talking to herself) Delusions: Yes Delusion Type: Paranoid Suicidal: Ideation (denies) Homicidal: Ideation (denies) Insight/Judgement Limited Vitals/IOs Vital Signs Date Time Temp Pulse Resp B/P Pulse Ox O2 Delivery O2 Flow Rate FiO2 12/16/16 05:54 98.1 92 16 149/79 100 Assessment & Plan Problem List: (1) Unspecified psychosis ICD Code: F29 Assessment & Plan Estimated LOS: days Justification for Cont. Inpt. Risk of decompensation Request HC Surrog/Guard Advoc?: No Ezequiel Burr MD Dec 16, 2016 10:38
[2016-12-16] MEDS: DONEPEZIL HCL 5 MG TAB PO SCH ×2 (11:17→20:19)
[2016-12-16] MEDS ORDERED: OLANZapine IM 10 MG VIAL IM ONE ×2 (18:38→18:45)
[2016-12-16] MEDS: MIRTAZAPINE 15 MG TAB PO SCH (20:19)
[2016-12-16 20:32] VITALS: BP 157/67; PULSE 90; RESP 18; TEMP 98.2; O2SAT 96
[2016-12-17 05:34] VITALS: BP 143/65; PULSE 74; RESP 16; TEMP 98
[2016-12-17] MEDS: DONEPEZIL HCL 5 MG TAB PO SCH ×2 (08:18→21:00)
[2016-12-17] MEDS: OLANZapine 5 MG TAB PO SCH ×3 (08:19→18:00)
[2016-12-17] MEDS: ASPIRIN EC 81 MG TABEC PO SCH (08:19)
[2016-12-17] MEDS: LISINOPRIL 5 MG TAB PO SCH (08:19)
[2016-12-17] MEDS: metFORMIN HCL 500 MG TAB PO SCH ×2 (08:19→21:00)
[2016-12-17] MEDS ORDERED: LORazepam 2 MG/ML VIAL IM STA (11:17)
[2016-12-17] MEDS ORDERED: diphenhydrAMINE HCL 50 MG/ML VIAL IM STA (11:17)
[2016-12-17] MEDS ORDERED: HALOPERIDOL LACTATE 5 MG/ML AMP IM STA (11:17)
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
[2016-12-17] MEDS: MIRTAZAPINE 15 MG TAB PO SCH (21:00)
[2016-12-17 21:41] VITALS: BP 125/61; PULSE 70; RESP 16; TEMP 98.3; O2SAT 96
[2016-12-18 05:05] VITALS: BP 127/56; PULSE 75; RESP 18; TEMP 97.9
[2016-12-18] MEDS: ASPIRIN EC 81 MG TABEC PO SCH (09:00)
[2016-12-18] MEDS: DONEPEZIL HCL 5 MG TAB PO SCH ×2 (09:00→21:00)
[2016-12-18] MEDS: LISINOPRIL 5 MG TAB PO SCH (09:00)
[2016-12-18] MEDS: metFORMIN HCL 500 MG TAB PO SCH ×2 (09:00→21:00)
[2016-12-18] MEDS: OLANZapine 5 MG TAB PO SCH ×3 (09:00→18:00)
--- NOTE | 2016-12-18 12:25 | HHI.PYPN ---
Subjective Remarks Patient seen in day room with nurse Fuentes, chart review, patient continues angry and confused, refusing medication. Stating her 72 hours is up. She does not understand why she is here. Takes no accountability or responsibility for her behaviors leading to this hospitalization. At this time I feel patient does not have the capacity to make appropriate decisions concerning her admission or her treatment thus I will start a petition supporting involuntary placement during the first opinion petition supporting request and will also ask for a second opinion related to this. Also started health care surrogate and guardian advocate. Review of Systems Except as stated in HPI: all other systems reviewed are Neg Objective Alert: Yes [place]: Person, Place, Date Mood: Anxious, Depressed, Other (frustrated) Affect: Blunted Memory Intact: Immediate, Recent (mildly impaired) Hallucinations: Other (patient admitted to occasionally talking to herself) Delusions: Yes Delusion Type: Paranoid Suicidal: Ideation (denies) Homicidal: Ideation (denies) Insight/Judgement Very poor Vitals/IOs Vital Signs Date Time Temp Pulse Resp B/P Pulse Ox O2 Delivery O2 Flow Rate FiO2 12/18/16 05:05 97.9 75 18 127/56 12/17/16 21:41 96 Intake and Output 12/17/16 12/17/16 12/18/16 08:00 16:00 00:00 Intake Total 120 ml 0 ml Balance 120 ml 0 ml Assessment & Plan Problem List: (1) OTH PSYCH DISORDER NOT DUE TO A SUB OR KNOWN PHYSIOL COND ICD Code: F28 Assessment & Plan Estimated LOS: days patient continues angry confused noncompliant medication showing no insight into her disease. At this time for patient does not have capacity to make tissues considering her admission or medication thus I'll do first opinion petition supporting [place] act ask for second opinion, also ask for healthcare surrogate and guardian advocate Justification for Cont. Inpt. At this time patient would significantly decompensate if placed in a lower level of care Request HC Surrog/Guard Advoc?: Yes Jd Damon MD Dec 18, 2016 12:25
[2016-12-18 19:27] VITALS: BP 148/65; PULSE 80; RESP 18; TEMP 98.2; O2SAT 97
[2016-12-18] MEDS: MIRTAZAPINE 15 MG TAB PO SCH (21:00)
[2016-12-19 05:54] VITALS: BP 160/70; PULSE 80; RESP 17; TEMP 98.4; O2SAT 96
[2016-12-19] MEDS: ASPIRIN EC 81 MG TABEC PO SCH (08:46)
[2016-12-19] MEDS: OLANZapine 5 MG TAB PO SCH ×3 (08:46→17:22)
[2016-12-19] MEDS: metFORMIN HCL 500 MG TAB PO SCH ×2 (08:46→21:15)
[2016-12-19] MEDS: LISINOPRIL 5 MG TAB PO SCH (08:46)
[2016-12-19] MEDS: DONEPEZIL HCL 5 MG TAB PO SCH ×2 (08:46→21:15)
[2016-12-19] MEDS ORDERED: OLANZapine IM 10 MG VIAL IM ONE ×4 (08:50→19:45)
[2016-12-19] MEDS ORDERED: LORazepam 2 MG/ML VIAL ONE (08:51)
[2016-12-19] MEDS ORDERED: LORazepam 2 MG/ML VIAL IM ONE ×2 (09:30→19:45)
--- NOTE | 2016-12-19 15:08 | PD.CONS ---
Provisional Diagnosis Admission Date Dec 11, 2016 at 15:30 [place] I. unspecified psychosis History of Present Illness Service Psychiatry Consult Requested By Primary Care Physician Jd Bell MD HPI Pt was seen and discussed with staff and chart reviewed. She remains paranoid and has been refusing medications. Staff report that pt is easily agitated and aggressive. Very poor insight into conditions. She states that she will only take medications if nurses reveal "the codes" to her. Review of Systems Psychiatric: COMPLAINS OF: Delusions Past Family Social History Coded Allergies: No Known Allergies (Verified , 04/06/16) Active Scripts Olanzapine 2.5 Mg Tab2.5 Mg PO Q12HR 30 Days Ref 0 Prov:Ethan Horton MD 12/11/16 Reported Medications Metformin (Glucophage)500 Mg Tab1,000 Mg PO BID #60 TAB Ref 0 With meals 12/09/16 Current Medications Medications (Trade) Dose Ordered Sig/Shay Route Start Time Stop Time Status Last Admin (Ativan) 1 mg Q8H PRN PO 12/11/16 19:45 (Remeron) 15 mg HS PO 12/11/16 21:00 12/15/16 20:51 (Glucophage) 1,000 mg BID PO 12/13/16 21:00 12/17/16 08:19 (Prinivil) 2.5 mg DAILY PO 12/14/16 09:00 12/17/16 08:19 (Pill Splitter) 1 ea UNSCH PRN OTHER 12/13/16 16:30 (Ecotrin Ec) 81 mg DAILY PO 12/14/16 09:00 12/17/16 08:19 (ZyPREXA) 5 mg TID PO 12/15/16 13:00 12/17/16 08:19 (Aricept) 5 mg BID PO 12/16/16 11:00 12/17/16 08:18 Family History denies Social History , lives alone, originally from [place]. Patient's Strengths (min. 2) verbal, in monitored setting Physical Exam Vital Signs Vital Signs Date Time Temp Pulse Resp B/P Pulse Ox O2 Delivery O2 Flow Rate FiO2 12/19/16 05:54 98.4 80 17 160/70 96 I/O 12/18/16 12/18/16 12/19/16 08:00 16:00 00:00 Intake Total 1440 ml 840 ml Balance 1440 ml 840 ml Mental Status Examination Speech: Unremarkable Orientation: x3 Memory: Unremarkable Thought Process: Circumstantial, Loose Association Thought Content: Paranoid, Ideas of Reference Hallucination Type: None Attention and Concentration: Good Suicidal Ideation: No Previous Suicide Attempts: No Homicidal Ideation: No Previous Homicide Attempts: No Judgement: Poor Affect: Irritable Mood: Irritable Motor Activity: Normal gait Assessment & Plan Problem List: (1) OTH PSYCH DISORDER NOT DUE TO A SUB OR KNOWN PHYSIOL COND ICD Code: F28 Assessment & Plan I agree that pt meets involuntary hospitalization criteria. 2nd opinion paperwork completed. Yanelis current tx plan. Estimated LOS: days Request HC Surrog/Guard Advoc?: Yes Adina Martinez MD Dec 19, 2016 15:08
[2016-12-19] MEDS ORDERED: LORazepam 2 MG/ML VIAL IM SCH (16:45)
[2016-12-19 19:00] VITALS: BP 149/63; PULSE 82; RESP 18; TEMP 98.4; O2SAT 98
[2016-12-19] MEDS: MIRTAZAPINE 15 MG TAB PO SCH (21:15)
[2016-12-20 05:05] VITALS: BP 143/66; PULSE 47; RESP 16; TEMP 97.4; O2SAT 95
[2016-12-20] MEDS: LORazepam 1 MG TAB PO PRN ×2 (07:30→21:04)
[2016-12-20] MEDS: DONEPEZIL HCL 5 MG TAB PO SCH ×2 (09:00→21:04)
[2016-12-20] MEDS: metFORMIN HCL 500 MG TAB PO SCH ×2 (09:00→21:04)
[2016-12-20] MEDS: OLANZapine 5 MG TAB PO SCH ×3 (09:00→18:00)
[2016-12-20] MEDS: LISINOPRIL 5 MG TAB PO SCH (09:00)
[2016-12-20] MEDS: ASPIRIN EC 81 MG TABEC PO SCH (09:00)
--- NOTE | 2016-12-20 15:38 | HHI.PYPN ---
Subjective Remarks Pt seen and discussed with staff. She was agitated last night and aggressive towards staff and received IM olanzapine. This morning pt was compliant with medications and has had a much better day today. No aggression today. Objective Alert: Yes [place]: Person, Place, Date Mood: Anxious, Depressed, Other (frustrated) Affect: Blunted Memory Intact: Immediate, Recent (mildly impaired) Hallucinations: Other (patient admitted to occasionally talking to herself) Delusions: Yes Delusion Type: Paranoid Suicidal: Ideation (denies) Homicidal: Ideation (denies) Insight/Judgement poor Vitals/IOs Vital Signs Date Time Temp Pulse Resp B/P Pulse Ox O2 Delivery O2 Flow Rate FiO2 12/20/16 05:05 97.4 47 16 143/66 95 Intake and Output 12/19/16 12/19/16 12/20/16 08:00 16:00 00:00 Intake Total 360 ml 360 ml 240 ml Balance 360 ml 360 ml 240 ml Assessment & Plan Problem List: (1) OTH PSYCH DISORDER NOT DUE TO A SUB OR KNOWN PHYSIOL COND ICD Code: F28 Assessment & Plan Continue to encourage compliance. Continue current tx plan. Estimated LOS: days Justification for Cont. Inpt. safety Request HC Surrog/Guard Advoc?: Yes Adina Martinez MD Dec 20, 2016 15:38
[2016-12-20 19:28] VITALS: BP 153/69; PULSE 94; RESP 16; TEMP 98.7
[2016-12-20] MEDS: MIRTAZAPINE 15 MG TAB PO SCH (21:04)
[2016-12-21 05:10] VITALS: BP 108/56; PULSE 72; RESP 18; TEMP 97; O2SAT 97
[2016-12-21] MEDS: LISINOPRIL 5 MG TAB PO SCH ×2 (08:52→09:00)
[2016-12-21] MEDS: ASPIRIN EC 81 MG TABEC PO SCH ×2 (08:52→09:00)
[2016-12-21] MEDS: OLANZapine 5 MG TAB PO SCH ×3 (08:52→17:23)
[2016-12-21] MEDS: metFORMIN HCL 500 MG TAB PO SCH ×3 (08:52→21:12)
[2016-12-21] MEDS: DONEPEZIL HCL 5 MG TAB PO SCH ×3 (08:52→21:12)
--- NOTE | 2016-12-21 15:27 | HHI.PYPN ---
Subjective Remarks Patient discussed with treatment team medical student Janessa, and patient's son and grandson from [place]. 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 She is somewhat aggressive and demanding and irritable over Wednesday and night 2/4 immediate and injection of olanzapine Review of Systems Except as stated in HPI: all other systems reviewed are Neg Objective Alert: Yes [place]: Person, Place, Date Mood: Anxious, Depressed, Other (frustrated) Affect: Blunted Memory Intact: Immediate, Recent (mildly impaired) Hallucinations: Other (patient admitted to occasionally talking to herself) Delusions: Yes Delusion Type: Paranoid Suicidal: Ideation (denies) Homicidal: Ideation (denies) Insight/Judgement Very poor Vitals/IOs Vital Signs Date Time Temp Pulse Resp B/P Pulse Ox O2 Delivery O2 Flow Rate FiO2 12/21/16 05:10 97.0 72 18 108/56 97 Intake and Output 12/20/16 12/20/16 12/21/16 08:00 16:00 00:00 Intake Total 600 ml 1440 ml Balance 600 ml 1440 ml Assessment & Plan Problem List: (1) OTH PSYCH DISORDER NOT DUE TO A SUB OR KNOWN PHYSIOL COND ICD Code: F28 Assessment & Plan Estimated LOS: days patient continues confused somewhat psychotic, showing some improved compliance with medication Justification for Cont. Inpt. At this time patient would significantly decompensate if place to the lower level of care Discharge Planning To be determined Request HC Surrog/Guard Advoc?: Yes Jd Damon MD Dec 21, 2016 15:27
[2016-12-21 18:13] VITALS: BP 152/74; PULSE 96; RESP 18; TEMP 97.4
[2016-12-21] MEDS: MIRTAZAPINE 15 MG TAB PO SCH (21:00)
[2016-12-22 06:05] VITALS: BP 132/61; PULSE 83; RESP 17; TEMP 96.1; O2SAT 96
[2016-12-22] MEDS: OLANZapine 5 MG TAB PO SCH ×3 (08:52→18:00)
[2016-12-22] MEDS: ASPIRIN EC 81 MG TABEC PO SCH (08:53)
[2016-12-22] MEDS: LISINOPRIL 5 MG TAB PO SCH (08:53)
[2016-12-22] MEDS: DONEPEZIL HCL 5 MG TAB PO SCH ×2 (08:53→20:31)
[2016-12-22] MEDS: metFORMIN HCL 500 MG TAB PO SCH ×2 (08:53→20:31)
--- NOTE | 2016-12-22 13:23 | HHI.PYPN ---
Subjective Remarks Patient seen on unit with nurse Lev medical student Yanira, chart review, also discussed this with patient's son who was leaving after visiting at lunchtime. Patient continues confused disoriented but her affect has softened she is calmer more appropriate and pleasant. She does remember her time living in [place]. It appears she is still willing to relocate to [facility] to be closer to her family. Her son is also wishing this needs assistance and direction from us to help achieve that Review of Systems Except as stated in HPI: all other systems reviewed are Neg Objective Alert: Yes [place]: Person, Place, Date Mood: Anxious, Depressed, Other (frustrated) Affect: Blunted Memory Intact: Immediate, Recent (mildly impaired) Hallucinations: Other (patient admitted to occasionally talking to herself) Delusions: Yes Delusion Type: Paranoid Suicidal: Ideation (denies) Homicidal: Ideation (denies) Insight/Judgement Very poor Vitals/IOs Vital Signs Date Time Temp Pulse Resp B/P Pulse Ox O2 Delivery O2 Flow Rate FiO2 12/22/16 06:05 96.1 83 17 132/61 96 Intake and Output 12/21/16 12/21/16 12/22/16 08:00 16:00 00:00 Intake Total 960 ml 1120 ml Balance 960 ml 1120 ml Assessment & Plan Problem List: (1) OTH PSYCH DISORDER NOT DUE TO A SUB OR KNOWN PHYSIOL COND ICD Code: F28 Assessment & Plan Estimated LOS: days patient continues confused disoriented though somewhat softer, the paranoia has diminished Justification for Cont. Inpt. At this time the patient would significantly decompensate if placed in a lower level of care Discharge Planning To be determined Request HC Surrog/Guard Advoc?: Yes Jd Damon MD Dec 22, 2016 13:23
[2016-12-22 19:26] VITALS: BP 146/69; PULSE 75; RESP 17; TEMP 97.6; O2SAT 98
[2016-12-22] MEDS: MIRTAZAPINE 15 MG TAB PO SCH (20:31)
[2016-12-23 05:40] VITALS: BP 128/57; PULSE 63; RESP 14; TEMP 97; O2SAT 98
[2016-12-23] MEDS: DONEPEZIL HCL 5 MG TAB PO SCH ×2 (09:00→20:25)
[2016-12-23] MEDS: OLANZapine 5 MG TAB PO SCH ×3 (09:00→17:16)
[2016-12-23] MEDS: LISINOPRIL 5 MG TAB PO SCH (09:00)
[2016-12-23] MEDS: ASPIRIN EC 81 MG TABEC PO SCH (09:00)
[2016-12-23] MEDS: metFORMIN HCL 500 MG TAB PO SCH ×2 (09:00→20:26)
--- NOTE | 2016-12-23 11:03 | HHI.PYPN ---
Subjective Remarks Patient seen in [place] with nurse Lev, chart review, patient continues markedly confused disorganized though this time no behavioral problems, her initial paranoia and vigilance and irritability have markedly decreased. Patient scheduled for [place] [facility] tomorrow, herself should call though is anticipated to be there also Review of Systems Except as stated in HPI: all other systems reviewed are Neg Objective Alert: Yes [place]: Person, Place, Date Mood: Anxious, Depressed, Other (frustrated) Affect: Blunted Memory Intact: Immediate, Recent (mildly impaired) Hallucinations: Other (patient admitted to occasionally talking to herself) Delusions: Yes Delusion Type: Paranoid Suicidal: Ideation (denies) Homicidal: Ideation (denies) Insight/Judgement Very poor Vitals/IOs Vital Signs Date Time Temp Pulse Resp B/P Pulse Ox O2 Delivery O2 Flow Rate FiO2 12/23/16 05:40 97.0 63 14 128/57 98 Intake and Output 12/22/16 12/22/16 12/23/16 08:00 16:00 00:00 Intake Total 120 ml 480 ml 1440 ml Balance 120 ml 480 ml 1440 ml Assessment & Plan Problem List: (1) OTH PSYCH DISORDER NOT DUE TO A SUB OR KNOWN PHYSIOL COND ICD Code: F28 Assessment & Plan Estimated LOS: days patient continues somewhat confused disoriented though behaviors have softened paranoia softened changes somewhat more pleasant and cooperative Justification for Cont. Inpt. At this time patient will decompensate placed at a lower level of care Discharge Planning To be determined Request HC Surrog/Guard Advoc?: Yes Jd Damon MD Dec 23, 2016 11:03
[2016-12-23] MEDS: LORazepam 1 MG TAB PO PRN (15:20)
[2016-12-23 18:03] VITALS: BP 177/77; PULSE 83; RESP 16; TEMP 98; O2SAT 97
[2016-12-23] MEDS: MIRTAZAPINE 15 MG TAB PO SCH (20:25)
[2016-12-23 20:50] VITALS: BP 133/62; PULSE 83
[2016-12-24 06:14] VITALS: BP 150/67; PULSE 70; RESP 18; TEMP 96.7; O2SAT 98
[2016-12-24] MEDS: DONEPEZIL HCL 5 MG TAB PO SCH ×3 (09:00→21:00)
[2016-12-24] MEDS: metFORMIN HCL 500 MG TAB PO SCH ×2 (09:00→20:32)
[2016-12-24] MEDS: LISINOPRIL 5 MG TAB PO SCH (09:00)
[2016-12-24] MEDS: ASPIRIN EC 81 MG TABEC PO SCH (09:00)
[2016-12-24] MEDS: OLANZapine 5 MG TAB PO SCH ×3 (09:22→17:37)
--- NOTE | 2016-12-24 12:18 | HHI.PYPN ---
Subjective Remarks Patient seen in [place] [address] with her son. Patient retained by Platform Inspector Ignacio, some to be guardian advocate. Patient continues confused disoriented, when son was testifying patient became somewhat angry as he described her past mental health history. He agrees the patient needs placement locally while he makes longer-term plans for relocating his mother near him in [place]. Review of Systems Except as stated in HPI: all other systems reviewed are Neg Objective Alert: Yes [place]: Person, Place, Date Mood: Anxious, Depressed, Other (frustrated) Affect: Blunted Memory Intact: Immediate, Recent (mildly impaired) Hallucinations: Other (patient admitted to occasionally talking to herself) Delusions: Yes Delusion Type: Paranoid Suicidal: Ideation (denies) Homicidal: Ideation (denies) Insight/Judgement Very poor Vitals/IOs Vital Signs Date Time Temp Pulse Resp B/P Pulse Ox O2 Delivery O2 Flow Rate FiO2 12/24/16 06:14 96.7 70 18 150/67 98 Intake and Output 12/23/16 12/23/16 12/24/16 08:00 16:00 00:00 Intake Total 0 ml 480 ml 840 ml Balance 0 ml 480 ml 840 ml Assessment & Plan Problem List: (1) OTH PSYCH DISORDER NOT DUE TO A SUB OR KNOWN PHYSIOL COND ICD Code: F28 Assessment & Plan Estimated LOS: days patient continues confused disoriented showing mixed compliance with medication for now continue treatment Justification for Cont. Inpt. At this time the patient with significantly decompensate if placed in the lower level of care Discharge Planning To be determined Request HC Surrog/Guard Advoc?: Yes Jd Damon MD Dec 24, 2016 12:18
[2016-12-24 19:15] VITALS: BP 167/74; PULSE 81; RESP 18; TEMP 98.7
[2016-12-24 20:30] VITALS: BP 169/70; PULSE 87; RESP 16; TEMP 97.6; O2SAT 94
[2016-12-24] MEDS: LORazepam 1 MG TAB PO PRN (20:32)
[2016-12-24] MEDS: MIRTAZAPINE 15 MG TAB PO SCH (20:33)
[2016-12-25 05:13] VITALS: BP 111/56; PULSE 77; RESP 18; TEMP 97.3; O2SAT 98
[2016-12-25] MEDS: metFORMIN HCL 500 MG TAB PO SCH ×2 (09:13→20:48)
[2016-12-25] MEDS: OLANZapine 5 MG TAB PO SCH ×3 (09:14→18:00)
[2016-12-25] MEDS: ASPIRIN EC 81 MG TABEC PO SCH (09:14)
[2016-12-25] MEDS: LISINOPRIL 5 MG TAB PO SCH (09:15)
[2016-12-25] MEDS: DONEPEZIL HCL 5 MG TAB PO SCH ×2 (09:15→20:48)
[2016-12-25 09:56] VITALS: BP 137/63; PULSE 84
--- NOTE | 2016-12-25 10:47 | PD.PN.STU ---
Subjective Remarks Patient seen in her room by MATTIE Yanira. She described her mood as indifferent and her affect seems to mimic that statement. She was conversational and willing to have company, as she says she becomes bored much of the time. She has been in contact with her son who lives in [place] and has been visiting [facility] the last week. She appears to be tired with unkempt hair but overall her hygiene is fair. She cannot remember the date although she knows it is December. She denies hallucinations, suicidal or homicidal ideation. Objective Vitals Vital Signs Date Time Temp Pulse Resp B/P Pulse Ox O2 Delivery O2 Flow Rate FiO2 12/25/16 09:56 84 137/63 12/25/16 05:13 97.3 77 18 111/56 98 12/24/16 20:30 97.6 87 16 169/70 94 12/24/16 19:15 98.7 81 18 167/74 I/O 12/24/16 12/24/16 12/24/16 12/25/16 12/25/16 12/25/16 07:00 15:00 23:00 07:00 15:00 23:00 Intake Total 0 ml 600 ml 480 ml Balance 0 ml 600 ml 480 ml Intake Oral 0 ml 600 ml Oral Supplement 480 ml # Voids 1 2 3 2 # Bowel Movements 1 Objective Remarks Alert: yes Oriented: to person, place Mood: indifferent Affect: calm, flat Memory: LT/ST intact Hallucinations: none Delusions: none Delusion type: - Suicidal: no ideation, intent, plan Homicidal: no ideation, intent, plan Insight/Judgment: insight and judgement are poor A/P Assessment and Plan Problem list: Unspecified psychosis Estimated LOS: Status overall has improved since admission. LOS to be determined by medical team, legal entities, and family after proper evaluation Justification: Patient would likely decompensate if placed in a lower level of care. Discharge Planning To be determined Yanira Ellison Dec 25, 2016 10:47
--- NOTE | 2016-12-25 12:05 | HHI.PYPN ---
Subjective Remarks Patient seen in [place] with nurse Anita and medical student Yanira, chart reviewed. Patient continues diffusely confused though calm cooperative today. Compliant medications. For now continue treatment Review of Systems Except as stated in HPI: all other systems reviewed are Neg Objective Alert: Yes [place]: Person, Place, Date Mood: Anxious, Depressed, Other (frustrated) Affect: Blunted Memory Intact: Immediate, Recent (mildly impaired) Hallucinations: Other (patient admitted to occasionally talking to herself) Delusions: Yes Delusion Type: Paranoid Suicidal: Ideation (denies) Homicidal: Ideation (denies) Insight/Judgement Poor Vitals/IOs Vital Signs Date Time Temp Pulse Resp B/P Pulse Ox O2 Delivery O2 Flow Rate FiO2 12/25/16 09:56 84 137/63 12/25/16 05:13 97.3 18 98 Intake and Output 12/24/16 12/24/16 12/24/16 07:59 15:59 23:59 Intake Total 0 ml 600 ml 480 ml Balance 0 ml 600 ml 480 ml Assessment & Plan Problem List: (1) OTH PSYCH DISORDER NOT DUE TO A SUB OR KNOWN PHYSIOL COND ICD Code: F28 Assessment & Plan Estimated LOS: days patient continues somewhat confused and confused, no behavior is calm. Compliant medications Justification for Cont. Inpt. At this time the patient would significantly decompensate if placed in the lower level of care Discharge Planning To be determined Request HC Surrog/Guard Advoc?: Yes Jd Damon MD Dec 25, 2016 12:05
[2016-12-25 18:38] VITALS: BP 159/69; PULSE 81; RESP 18; TEMP 98.6; O2SAT 98
[2016-12-25] MEDS: LORazepam 1 MG TAB PO PRN (20:48)
[2016-12-25] MEDS: MIRTAZAPINE 15 MG TAB PO SCH (20:48)
[2016-12-26 05:41] VITALS: BP 158/71; PULSE 71; RESP 16; TEMP 98.1; O2SAT 98
[2016-12-26] MEDS: DONEPEZIL HCL 5 MG TAB PO SCH ×2 (08:42→20:25)
[2016-12-26] MEDS: ASPIRIN EC 81 MG TABEC PO SCH (08:42)
[2016-12-26] MEDS: OLANZapine 5 MG TAB PO SCH ×3 (08:42→17:11)
[2016-12-26] MEDS: LISINOPRIL 5 MG TAB PO SCH (08:43)
[2016-12-26] MEDS: metFORMIN HCL 500 MG TAB PO SCH ×2 (08:43→20:25)
--- NOTE | 2016-12-26 12:33 | HHI.PYPN ---
Subjective Remarks Patient was seen and case discussed with nursing. Patient has poor insight into her admission. She is anxious and mildly confused during the interview. Denies auditory visual hallucinations. Denies paranoia. Alert and oriented 3. She denies depressed mood though she is a poor historian. Objective Alert: Yes [place]: Person, Place, Date Mood: Anxious, Depressed, Other (frustrated) Affect: Blunted Memory Intact: Immediate, Recent (mildly impaired) Hallucinations: Other (patient admitted to occasionally talking to herself) Delusions: Yes Delusion Type: Paranoid Suicidal: Ideation (denies) Homicidal: Ideation (denies) Insight/Judgement Poor Vitals/IOs Vital Signs Date Time Temp Pulse Resp B/P Pulse Ox O2 Delivery O2 Flow Rate FiO2 12/26/16 05:41 98.1 71 16 158/71 98 Intake and Output 12/25/16 12/25/16 12/26/16 08:00 16:00 00:00 Intake Total 600 ml 1080 ml Balance 600 ml 1080 ml Assessment & Plan Problem List: (1) OTH PSYCH DISORDER NOT DUE TO A SUB OR KNOWN PHYSIOL COND ICD Code: F28 Assessment & Plan Continue current treatment plan Justification for Cont. Inpt. Patient will decompensate in a less restrictive setting Request HC Surrog/Guard Advoc?: Yes Osito Arnold DO Dec 26, 2016 12:33
[2016-12-26 20:09] VITALS: BP 132/63; PULSE 89; RESP 18; TEMP 98.5; O2SAT 94
[2016-12-26] MEDS: LORazepam 1 MG TAB PO PRN (20:25)
[2016-12-26] MEDS: MIRTAZAPINE 15 MG TAB PO SCH (20:25)
[2016-12-27 05:49] VITALS: BP 126/58; PULSE 80; RESP 16; TEMP 97.6; O2SAT 98
[2016-12-27 08:32] VITALS: BP 126/58; PULSE 78; RESP 16; TEMP 97.6
[2016-12-27 08:33] VITALS: O2SAT 90
[2016-12-27] MEDS: metFORMIN HCL 500 MG TAB PO SCH ×2 (08:43→20:41)
[2016-12-27] MEDS: DONEPEZIL HCL 5 MG TAB PO SCH ×2 (08:43→20:41)
[2016-12-27] MEDS: ASPIRIN EC 81 MG TABEC PO SCH (08:43)
[2016-12-27] MEDS: LISINOPRIL 5 MG TAB PO SCH (08:44)
[2016-12-27] MEDS: OLANZapine 5 MG TAB PO SCH ×3 (08:44→18:00)
--- NOTE | 2016-12-27 15:31 | HHI.PYPN ---
Subjective Remarks Patient was seen and case discussed with nursing. Patient is pleasant and cooperative with exam. She notices an improvement in mood. She denies suicidal ideations thought content or plan. Compliant with medications. Behaving well on the unit Objective Alert: Yes [place]: Person, Place, Date Mood: Anxious, Depressed, Other (frustrated) Affect: Blunted Memory Intact: Immediate, Recent (mildly impaired) Hallucinations: Other (patient admitted to occasionally talking to herself) Delusions: Yes Delusion Type: Paranoid Suicidal: Ideation (denies) Homicidal: Ideation (denies) Insight/Judgement Poor Vitals/IOs Vital Signs Date Time Temp Pulse Resp B/P Pulse Ox O2 Delivery O2 Flow Rate FiO2 12/27/16 08:33 90 12/27/16 08:32 97.6 78 16 126/58 Intake and Output 12/26/16 12/26/16 12/27/16 08:00 16:00 00:00 Intake Total 0 ml 1200 ml 480 ml Balance 0 ml 1200 ml 480 ml Assessment & Plan Problem List: (1) OTH PSYCH DISORDER NOT DUE TO A SUB OR KNOWN PHYSIOL COND ICD Code: F28 Assessment & Plan Continue current treatment plan Justification for Cont. Inpt. Patient will decompensate in a less restrictive setting Request HC Surrog/Guard Advoc?: Yes Osito Arnold DO Dec 27, 2016 15:31
[2016-12-27 18:26] VITALS: BP 140/82; PULSE 74; RESP 16; TEMP 98.9
[2016-12-27] MEDS: MIRTAZAPINE 15 MG TAB PO SCH (20:41)
[2016-12-28 05:51] VITALS: BP 135/63; PULSE 52; RESP 15; TEMP 98.4; O2SAT 97
[2016-12-28] MEDS: ASPIRIN EC 81 MG TABEC PO SCH (12:26)
[2016-12-28] MEDS: metFORMIN HCL 500 MG TAB PO SCH ×3 (12:26→21:05)
[2016-12-28] MEDS: OLANZapine 5 MG TAB PO SCH ×3 (12:27→18:26)
[2016-12-28] MEDS: LISINOPRIL 5 MG TAB PO SCH (12:27)
[2016-12-28] MEDS: DONEPEZIL HCL 5 MG TAB PO SCH ×3 (12:27→21:05)
--- NOTE | 2016-12-28 17:10 | HHI.PYPN ---
Subjective Remarks Patient discussed with treatment team and medical student Yanira, chart review , patient is in an unit. Patient remains calm pleasant though somewhat confused. Affect is also improving somewhat. She continues to be cooperative with placement issues Review of Systems Except as stated in HPI: all other systems reviewed are Neg Objective Alert: Yes [place]: Person, Place, Date Mood: Anxious, Depressed, Other (frustrated) Affect: Blunted Memory Intact: Immediate, Recent (mildly impaired) Hallucinations: Other (patient admitted to occasionally talking to herself) Delusions: Yes Delusion Type: Paranoid Suicidal: Ideation (denies) Homicidal: Ideation (denies) Insight/Judgement Poor Vitals/IOs Vital Signs Date Time Temp Pulse Resp B/P Pulse Ox O2 Delivery O2 Flow Rate FiO2 12/28/16 05:51 98.4 52 15 135/63 97 Intake and Output 12/27/16 12/27/16 12/28/16 08:00 16:00 00:00 Intake Total 240 ml 1590 ml Balance 240 ml 1590 ml Assessment & Plan Problem List: (1) OTH PSYCH DISORDER NOT DUE TO A SUB OR KNOWN PHYSIOL COND ICD Code: F28 Assessment & Plan Estimated LOS: days patient continue somewhat confused psychosis is softening, mood is improving. Placement remains problematic Justification for Cont. Inpt. At this time patient will decompensate and placed a lower level of care Discharge Planning To be determined Request HC Surrog/Guard Advoc?: Yes Jd Damon MD Dec 28, 2016 17:10
[2016-12-28 18:00] VITALS: BP 100/55; PULSE 80; RESP 16; TEMP 98.9; O2SAT 96
[2016-12-28] MEDS: MIRTAZAPINE 15 MG TAB PO SCH ×2 (21:00→21:05)
[2016-12-29 05:30] VITALS: BP 132/60; PULSE 85; RESP 16; TEMP 97.4; O2SAT 95
[2016-12-29] MEDS: LISINOPRIL 5 MG TAB PO SCH (09:00)
[2016-12-29] MEDS: metFORMIN HCL 500 MG TAB PO SCH ×2 (09:26→21:00)
[2016-12-29] MEDS: DONEPEZIL HCL 5 MG TAB PO SCH ×2 (09:28→21:00)
[2016-12-29] MEDS: OLANZapine 5 MG TAB PO SCH ×3 (09:28→18:31)
[2016-12-29] MEDS: ASPIRIN EC 81 MG TABEC PO SCH (09:28)
--- NOTE | 2016-12-29 10:17 | PD.PN.STU ---
Subjective Remarks Patient seen in day room by Dr. Durga Damon and MS3 Yanira, sitting and dressed appropriately, oriented x3. According to a member of the medical team, she became confused yesterday and thought she was in a hotel. She was mildly combative and calmed down after taking her medicine yesterday afternoon. Today she is calm upon interviewing but does express her wishes to go home. She remembers her son and grandson visiting her last week and has good retirement memory about WW2. She becomes a little agitated when talking about her family dynamics with her son but reports sleeping okay. Objective Vitals Vital Signs Date Time Temp Pulse Resp B/P Pulse Ox O2 Delivery O2 Flow Rate FiO2 12/29/16 05:30 97.4 85 16 132/60 95 12/28/16 18:00 98.9 80 16 100/55 96 I/O 12/28/16 12/28/16 12/28/16 12/29/16 12/29/16 12/29/16 07:00 15:00 23:00 07:00 15:00 23:00 Intake Total 0 ml 600 ml 120 ml 240 ml Balance 0 ml 600 ml 120 ml 240 ml Intake Oral 0 ml 600 ml 120 ml 240 ml # Voids 1 2 2 Objective Remarks Alert: Yes [place]: Person, Place Mood: Neutral to irritated Affect: Blunted Memory Intact: ST/LT intact Hallucinations: None Delusions: None Delusion Type: - Suicidal: Ideation (denies) Homicidal: Ideation (denies) Insight/Judgement: Poor A/P Assessment and Plan Impression: 71 yo female on day 18 of hospitalization for unspecified psychosis ; status overall improved since admission however still having bouts of episodic confusion and combativeness to treatment. Problem list: Unspecified psychosis Estimated LOS: LOS to be determined by medical team, legal entities, and family after proper evaluation Justification: At this time patient would decompensate if placed in a lower level of care. Discharge Planning To be determined Yanira Ellison Dec 29, 2016 10:17
--- NOTE | 2016-12-29 10:29 | HHI.PYPN ---
Subjective Remarks Patient seen in [place] with nurse Day and medical student Yanira, chart review, it appears patient is compliant with her medications, that also appears per nursing documentation that time she is somewhat resistant to this. Overall patient calm. When attempted to discuss relation per the son she becomes little bit irritable when condescending. Otherwise patient no behavioral problems. For now continue treatment Review of Systems Except as stated in HPI: all other systems reviewed are Neg Objective Alert: Yes [place]: Person, Place, Date Mood: Anxious, Depressed, Other (frustrated) Affect: Blunted Memory Intact: Immediate, Recent (mildly impaired) Hallucinations: Other (patient admitted to occasionally talking to herself) Delusions: Yes Delusion Type: Paranoid Suicidal: Ideation (denies) Homicidal: Ideation (denies) Insight/Judgement Poor Vitals/IOs Vital Signs Date Time Temp Pulse Resp B/P Pulse Ox O2 Delivery O2 Flow Rate FiO2 12/29/16 05:30 97.4 85 16 132/60 95 Intake and Output 12/28/16 12/28/16 12/29/16 08:00 16:00 00:00 Intake Total 0 ml 600 ml Balance 0 ml 600 ml Assessment & Plan Problem List: (1) OTH PSYCH DISORDER NOT DUE TO A SUB OR KNOWN PHYSIOL COND ICD Code: F28 Assessment & Plan Estimated LOS: days patient remains confused vigilant with degree of paranoia focused towards her son today, patient continues somewhat reluctantly compliant medications Justification for Cont. Inpt. At this time patient will decompensate if place to the lower level of care Discharge Planning To be determined Request HC Surrog/Guard Advoc?: Yes Jd Damon MD Dec 29, 2016 10:29
[2016-12-29] MEDS: LORazepam 1 MG TAB PO PRN (14:02)
[2016-12-29 20:27] VITALS: BP 132/58; PULSE 80; RESP 16; TEMP 97.8; O2SAT 98
[2016-12-29] MEDS: MIRTAZAPINE 15 MG TAB PO SCH (21:00)
[2016-12-30 05:34] VITALS: BP 105/60; PULSE 53; RESP 18; TEMP 98.1; O2SAT 95
[2016-12-30] MEDS: LISINOPRIL 5 MG TAB PO SCH (08:26)
[2016-12-30] MEDS: DONEPEZIL HCL 5 MG TAB PO SCH ×2 (08:26→21:06)
[2016-12-30] MEDS: OLANZapine 5 MG TAB PO SCH ×3 (08:26→17:32)
[2016-12-30] MEDS: metFORMIN HCL 500 MG TAB PO SCH ×2 (08:27→21:06)
[2016-12-30] MEDS: ASPIRIN EC 81 MG TABEC PO SCH (08:27)
--- NOTE | 2016-12-30 14:23 | HHI.PYPN ---
Subjective Remarks Patient seen in day room with nurse Day. Chart reviewed. Patient noted yesterday to be exits seeking. Patient compliant medications though still with little insight into her issues she states she is "fine" now continue treatment no change Review of Systems Except as stated in HPI: all other systems reviewed are Neg Objective Alert: Yes [place]: Person, Place, Date Mood: Anxious, Depressed, Other (frustrated) Affect: Blunted Memory Intact: Immediate, Recent (mildly impaired) Hallucinations: Other (patient admitted to occasionally talking to herself) Delusions: Yes Delusion Type: Paranoid Suicidal: Ideation (denies) Homicidal: Ideation (denies) Insight/Judgement Very poor Vitals/IOs Vital Signs Date Time Temp Pulse Resp B/P Pulse Ox O2 Delivery O2 Flow Rate FiO2 12/30/16 05:34 98.1 53 18 105/60 95 Intake and Output 12/29/16 12/29/16 12/30/16 08:00 16:00 00:00 Intake Total 120 ml 960 ml 360 ml Balance 120 ml 960 ml 360 ml Assessment & Plan Problem List: (1) OTH PSYCH DISORDER NOT DUE TO A SUB OR KNOWN PHYSIOL COND ICD Code: F28 Assessment & Plan Estimated LOS: days patient continues confused, though no behavior problems except that has been exit seeking behaviors Justification for Cont. Inpt. At this time patient will decompensate if placed in lower level of care Discharge Planning To be determined Request HC Surrog/Guard Advoc?: Yes Jd Damon MD Dec 30, 2016 14:22
[2016-12-30 18:00] VITALS: BP 140/70; PULSE 79; RESP 16; TEMP 98; O2SAT 96
[2016-12-30] MEDS: MIRTAZAPINE 15 MG TAB PO SCH (21:06)
[2016-12-31 06:00] VITALS: BP 131/62; PULSE 57; RESP 16; TEMP 97.7; O2SAT 96
[2016-12-31] MEDS: DONEPEZIL HCL 5 MG TAB PO SCH ×2 (10:24→21:25)
[2016-12-31] MEDS: LISINOPRIL 5 MG TAB PO SCH (10:24)
[2016-12-31] MEDS: metFORMIN HCL 500 MG TAB PO SCH ×2 (10:25→21:25)
[2016-12-31] MEDS: OLANZapine 5 MG TAB PO SCH ×3 (10:25→17:58)
[2016-12-31] MEDS: ASPIRIN EC 81 MG TABEC PO SCH (10:25)
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
--- NOTE | 2016-12-31 15:14 | HHI.PYPN ---
Subjective Remarks Patient seen in [facility] with medical student Yanira. Patient overall calm cooperative though now states that she is being discharged today attempted to discuss this further medical some irritability and denial. Patient remains disorganized. Though compliant medications. Review of Systems Except as stated in HPI: all other systems reviewed are Neg Objective Alert: Yes [place]: Person, Place, Date Mood: Anxious, Depressed, Other (frustrated) Affect: Blunted Memory Intact: Immediate, Recent (mildly impaired) Hallucinations: Other (patient admitted to occasionally talking to herself) Delusions: Yes Delusion Type: Paranoid Suicidal: Ideation (denies) Homicidal: Ideation (denies) Insight/Judgement Very poor Vitals/IOs Vital Signs Date Time Temp Pulse Resp B/P Pulse Ox O2 Delivery O2 Flow Rate FiO2 12/31/16 06:00 97.7 57 16 131/62 96 Intake and Output 12/30/16 12/30/16 12/31/16 08:00 16:00 00:00 Intake Total 1080 ml 720 ml Balance 1080 ml 720 ml Assessment & Plan Problem List: (1) OTH PSYCH DISORDER NOT DUE TO A SUB OR KNOWN PHYSIOL COND ICD Code: F28 Assessment & Plan Estimated LOS: days patient continues confused irritable little insight at times exits seeking Justification for Cont. Inpt. At this time patient would significantly decompensate if placed in the lower level of care Discharge Planning To be determined Request HC Surrog/Guard Advoc?: Yes Jd Damon MD Dec 31, 2016 15:14
[2016-12-31 19:43] VITALS: BP 132/73; PULSE 69; RESP 16; TEMP 98.6; O2SAT 96
[2016-12-31] MEDS: MIRTAZAPINE 15 MG TAB PO SCH (21:25)
[2017-01-01 05:57] VITALS: BP 140/61; PULSE 67; RESP 16; TEMP 98.1; O2SAT 98
[2017-01-01] MEDS: LISINOPRIL 5 MG TAB PO SCH (09:26)
[2017-01-01] MEDS: ASPIRIN EC 81 MG TABEC PO SCH (09:26)
[2017-01-01] MEDS: DONEPEZIL HCL 5 MG TAB PO SCH ×2 (09:26→21:35)
[2017-01-01] MEDS: metFORMIN HCL 500 MG TAB PO SCH ×2 (09:26→21:35)
[2017-01-01] MEDS: OLANZapine 5 MG TAB PO SCH ×3 (09:26→18:17)
--- NOTE | 2017-01-01 13:53 | HHI.PYPN ---
Subjective Remarks Patient seen in day room with medical student Yanira. Chart review. Patient compliant medication. Patient has been showing some reluctance to discuss placement issues and agreeing to the financial aspect of it. We did discuss this with her the need for transitional placement for her issues really unable to return to her independent living at this time. Patient seemed to process the for a well will have counselor continue to work with her Review of Systems Except as stated in HPI: all other systems reviewed are Neg Objective Alert: Yes [place]: Person, Place, Date Mood: Anxious, Depressed, Other (frustrated) Affect: Blunted Memory Intact: Immediate, Recent (mildly impaired) Hallucinations: Other (patient admitted to occasionally talking to herself) Delusions: Yes Delusion Type: Paranoid Suicidal: Ideation (denies) Homicidal: Ideation (denies) Insight/Judgement Poor Vitals/IOs Vital Signs Date Time Temp Pulse Resp B/P Pulse Ox O2 Delivery O2 Flow Rate FiO2 01/01/17 05:57 98.1 67 16 140/61 98 Intake and Output 12/31/16 12/31/16 01/01/17 08:00 16:00 00:00 Intake Total 840 ml 840 ml Balance 840 ml 840 ml Assessment & Plan Problem List: (1) OTH PSYCH DISORDER NOT DUE TO A SUB OR KNOWN PHYSIOL COND ICD Code: F28 Assessment & Plan Estimated LOS: days patient continues somewhat vigilant and confused. Compliant with medications. Need to continue working with her related to placement issues Justification for Cont. Inpt. At this time patient will decompensate if placed in the lower level of care Discharge Planning To be determined Request HC Surrog/Guard Advoc?: Yes Jd Damon MD Jan 01, 2017 13:53
[2017-01-01 18:06] VITALS: BP 138/63; PULSE 70; RESP 16; TEMP 98.6; O2SAT 97
[2017-01-01] MEDS: MIRTAZAPINE 15 MG TAB PO SCH (21:35)
[2017-01-02 06:04] VITALS: BP 136/65; PULSE 62; RESP 18; TEMP 97.4; O2SAT 96
[2017-01-02] MEDS: LISINOPRIL 5 MG TAB PO SCH (08:54)
[2017-01-02] MEDS: metFORMIN HCL 500 MG TAB PO SCH ×2 (08:55→21:07)
[2017-01-02] MEDS: DONEPEZIL HCL 5 MG TAB PO SCH ×2 (08:55→21:06)
[2017-01-02] MEDS: ASPIRIN EC 81 MG TABEC PO SCH (08:55)
[2017-01-02] MEDS: OLANZapine 5 MG TAB PO SCH ×3 (08:55→17:50)
[2017-01-02 18:00] VITALS: BP 132/58; PULSE 81; RESP 18; TEMP 98.6; O2SAT 96
--- NOTE | 2017-01-02 18:51 | HHI.PYPN ---
Subjective Remarks Pt seen and discussed with staff. Pt has been compliant with treatment and denies mediation side effects. No behavioral problems today. No SI/HI. Objective Alert: Yes [place]: Person, Place, Date Mood: Calm Affect: Restricted Memory Intact: Immediate, Recent (mildly impaired) Hallucinations: Other (patient admitted to occasionally talking to herself) Delusions: Yes Delusion Type: Paranoid Suicidal: Ideation (denies) Homicidal: Ideation (denies) Insight/Judgement limited Vitals/IOs Vital Signs Date Time Temp Pulse Resp B/P Pulse Ox O2 Delivery O2 Flow Rate FiO2 01/02/17 18:00 98.6 81 18 132/58 96 Intake and Output 01/01/17 01/01/17 01/02/17 08:00 16:00 00:00 Intake Total 0 ml 1440 ml 360 ml Balance 0 ml 1440 ml 360 ml Assessment & Plan Problem List: (1) OTH PSYCH DISORDER NOT DUE TO A SUB OR KNOWN PHYSIOL COND ICD Code: F28 Assessment & Plan Continue current tx plan. Estimated LOS: days Justification for Cont. Inpt. impairments in self care Request HC Surrog/Guard Advoc?: Yes Adina Martinez MD Jan 02, 2017 18:51
[2017-01-02] MEDS: MIRTAZAPINE 15 MG TAB PO SCH (21:06)
[2017-01-03] MEDS: LORazepam 1 MG TAB PO PRN (01:27)
[2017-01-03 05:10] VITALS: BP 122/58; PULSE 74; RESP 18; TEMP 98.6; O2SAT 96
[2017-01-03] MEDS: ASPIRIN EC 81 MG TABEC PO SCH (09:36)
[2017-01-03] MEDS: metFORMIN HCL 500 MG TAB PO SCH ×2 (09:37→20:37)
[2017-01-03] MEDS: LISINOPRIL 5 MG TAB PO SCH (09:37)
[2017-01-03] MEDS: OLANZapine 5 MG TAB PO SCH ×3 (09:38→17:40)
[2017-01-03] MEDS: DONEPEZIL HCL 5 MG TAB PO SCH ×2 (09:43→20:37)
--- NOTE | 2017-01-03 19:13 | HHI.PYPN ---
Subjective Remarks Pt seen and discussed with staff. She has been sleeping during day and staying up at night. No behavioral problems. Compliant with medications. Objective Alert: Yes [place]: Person, Place, Date Mood: Calm Affect: Restricted Memory Intact: Immediate, Recent (mildly impaired) Hallucinations: Other (patient admitted to occasionally talking to herself) Delusions: Yes Delusion Type: Paranoid Suicidal: Ideation (denies) Homicidal: Ideation (denies) Insight/Judgement poor Vitals/IOs Vital Signs Date Time Temp Pulse Resp B/P Pulse Ox O2 Delivery O2 Flow Rate FiO2 01/03/17 05:10 98.6 74 18 122/58 96 Intake and Output 01/02/17 01/02/17 01/03/17 08:00 16:00 00:00 Intake Total 240 ml 960 ml 960 ml Balance 240 ml 960 ml 960 ml Assessment & Plan Problem List: (1) OTH PSYCH DISORDER NOT DUE TO A SUB OR KNOWN PHYSIOL COND ICD Code: F28 Assessment & Plan Continue current tx plan. Estimated LOS: days Justification for Cont. Inpt. risk of decompensation Request HC Surrog/Guard Advoc?: Yes Adina Martinez MD Jan 03, 2017 19:13
[2017-01-03 20:33] VITALS: BP 112/68; PULSE 88; RESP 22; TEMP 97.6; O2SAT 94
[2017-01-03] MEDS: MIRTAZAPINE 15 MG TAB PO SCH (20:37)
[2017-01-04 05:40] VITALS: BP 145/67; PULSE 59; RESP 16; TEMP 98.1; O2SAT 98
[2017-01-04] MEDS: metFORMIN HCL 500 MG TAB PO SCH ×2 (10:35→20:46)
[2017-01-04] MEDS: ASPIRIN EC 81 MG TABEC PO SCH (10:35)
[2017-01-04] MEDS: DONEPEZIL HCL 5 MG TAB PO SCH ×2 (10:35→20:46)
[2017-01-04] MEDS: OLANZapine 5 MG TAB PO SCH ×2 (10:35→13:00)
[2017-01-04] MEDS: LISINOPRIL 5 MG TAB PO SCH (10:36)
--- NOTE | 2017-01-04 14:03 | HHI.PYPN ---
Subjective Remarks Patient discussed with treatment team and medical student Yanira. Patient overall calm though continues confused. Been noted to be sleeping more during the day and up more at night. Will adjust Zyprexa to 5 mg a.m. 10 mg at at bedtime and observe for sleep patterns. Review of Systems Except as stated in HPI: all other systems reviewed are Neg Objective Alert: Yes [place]: Person, Place, Date Mood: Calm Affect: Restricted Memory Intact: Immediate, Recent (mildly impaired) Hallucinations: Other (patient admitted to occasionally talking to herself) Delusions: Yes Delusion Type: Paranoid Suicidal: Ideation (denies) Homicidal: Ideation (denies) Insight/Judgement Very poor Vitals/IOs Vital Signs Date Time Temp Pulse Resp B/P Pulse Ox O2 Delivery O2 Flow Rate FiO2 01/04/17 05:40 98.1 59 16 145/67 98 Intake and Output 01/03/17 01/03/17 01/04/17 08:00 16:00 00:00 Intake Total 240 ml 840 ml Balance 240 ml 840 ml Assessment & Plan Problem List: (1) OTH PSYCH DISORDER NOT DUE TO A SUB OR KNOWN PHYSIOL COND ICD Code: F28 Assessment & Plan Estimated LOS: days patient continues confused as times somewhat disorganized. Appears sleep is becoming more when issue. See medication adjustment above Justification for Cont. Inpt. At this time patient will decompensate if placed in a lower level of care Discharge Planning To be determined Request HC Surrog/Guard Advoc?: Yes Jd Damon MD Jan 04, 2017 14:03
[2017-01-04 18:00] VITALS: BP 160/72; PULSE 85; RESP 17; TEMP 98.2; O2SAT 97
[2017-01-04] MEDS: OLANZapine 10 MG TAB PO SCH (20:45)
[2017-01-04] MEDS: MIRTAZAPINE 15 MG TAB PO SCH (20:46)
[2017-01-05 06:09] VITALS: BP 119/88; PULSE 82; RESP 16; TEMP 98; O2SAT 98
[2017-01-05] MEDS: ASPIRIN EC 81 MG TABEC PO SCH (08:40)
[2017-01-05] MEDS: metFORMIN HCL 500 MG TAB PO SCH ×2 (08:40→21:15)
[2017-01-05] MEDS: OLANZapine 5 MG TAB PO SCH (08:40)
[2017-01-05] MEDS: DONEPEZIL HCL 5 MG TAB PO SCH ×2 (08:41→21:15)
[2017-01-05] MEDS: LISINOPRIL 5 MG TAB PO SCH ×2 (08:41→08:50)
--- NOTE | 2017-01-05 13:43 | HHI.PYPN ---
Subjective Remarks Patient seen in day room with medical student Yanira, chart reviewed, patient calm pleasant with me though still show some skepticism and irritability when discussing placement, it appears that she will reluctantly accept appropriate placement. Patient compliant with her medications. Review of Systems Except as stated in HPI: all other systems reviewed are Neg Objective Alert: Yes [place]: Person, Place, Date Mood: Calm Affect: Restricted Memory Intact: Immediate, Recent (mildly impaired) Hallucinations: Other (patient admitted to occasionally talking to herself) Delusions: Yes Delusion Type: Paranoid Suicidal: Ideation (denies) Homicidal: Ideation (denies) Insight/Judgement Very poor Vitals/IOs Vital Signs Date Time Temp Pulse Resp B/P Pulse Ox O2 Delivery O2 Flow Rate FiO2 01/05/17 06:09 98.0 82 16 119/88 98 Intake and Output 01/04/17 01/04/17 01/05/17 08:00 16:00 00:00 Intake Total 0 ml 960 ml 1685 ml Balance 0 ml 960 ml 1685 ml Assessment & Plan Problem List: (1) OTH PSYCH DISORDER NOT DUE TO A SUB OR KNOWN PHYSIOL COND ICD Code: F28 Assessment & Plan Estimated LOS: days patient remains confused disoriented, and vaguely paranoid. Compliant medications. For now continue treatment. Justification for Cont. Inpt. At this time patient will decompensate and placed in the lower level of care Discharge Planning To be determined Request HC Surrog/Guard Advoc?: Yes Jd Damon MD Jan 05, 2017 13:43
[2017-01-05 18:13] VITALS: BP 140/68; PULSE 72; RESP 16; TEMP 98.3; O2SAT 97
[2017-01-05] MEDS: OLANZapine 10 MG TAB PO SCH (21:00)
[2017-01-05] MEDS: MIRTAZAPINE 15 MG TAB PO SCH (21:15)
[2017-01-06 06:16] VITALS: BP 153/69; PULSE 75; RESP 18; TEMP 98; O2SAT 96
[2017-01-06] MEDS: metFORMIN HCL 500 MG TAB PO SCH ×2 (09:53→20:46)
[2017-01-06] MEDS: LISINOPRIL 5 MG TAB PO SCH (09:53)
[2017-01-06] MEDS: DONEPEZIL HCL 5 MG TAB PO SCH ×2 (09:54→20:46)
[2017-01-06] MEDS: OLANZapine 5 MG TAB PO SCH (09:54)
[2017-01-06] MEDS: ASPIRIN EC 81 MG TABEC PO SCH (10:00)
--- NOTE | 2017-01-06 10:07 | HHI.PYPN ---
Subjective Remarks Patient seen in day room with nurse Day, chart reviewed, patient continues calm cooperative is somewhat skeptical and reluctant to speak about placement, though she is willing to be placed for a period of time. Patient compliant with medications. Continue somewhat diffusely confused for now continue treatment Review of Systems Except as stated in HPI: all other systems reviewed are Neg Objective Alert: Yes [place]: Person, Place, Date Mood: Calm Affect: Restricted Memory Intact: Immediate, Recent (mildly impaired) Hallucinations: Other (patient admitted to occasionally talking to herself) Delusions: Yes Delusion Type: Paranoid Suicidal: Ideation (denies) Homicidal: Ideation (denies) Insight/Judgement Poor Vitals/IOs Vital Signs Date Time Temp Pulse Resp B/P Pulse Ox O2 Delivery O2 Flow Rate FiO2 01/06/17 06:16 98.0 75 18 153/69 96 Intake and Output 01/05/17 01/05/17 01/06/17 08:00 16:00 00:00 Intake Total 240 ml 240 ml 1260 ml Balance 240 ml 240 ml 1260 ml Assessment & Plan Problem List: (1) OTH PSYCH DISORDER NOT DUE TO A SUB OR KNOWN PHYSIOL COND ICD Code: F28 Assessment & Plan Estimated LOS: days patient continues somewhat guarded and vigilant, compliant medications, continue to work on placement issues Justification for Cont. Inpt. At this time patient will decompensate placed in a lower level of care Discharge Planning To be determined Request HC Surrog/Guard Advoc?: Yes Jd Damon MD Jan 06, 2017 10:07
[2017-01-06 18:00] VITALS: BP 130/64; PULSE 73; RESP 18; TEMP 98.2; O2SAT 97
[2017-01-06] MEDS: MIRTAZAPINE 15 MG TAB PO SCH (20:46)
[2017-01-06] MEDS: OLANZapine 10 MG TAB PO SCH (20:47)
[2017-01-07 05:43] VITALS: BP 145/64; PULSE 70; RESP 17; TEMP 98.2; O2SAT 94
[2017-01-07] MEDS: metFORMIN HCL 500 MG TAB PO SCH ×2 (09:58→20:34)
[2017-01-07] MEDS: LISINOPRIL 5 MG TAB PO SCH (09:58)
[2017-01-07] MEDS: OLANZapine 5 MG TAB PO SCH (09:58)
[2017-01-07] MEDS: DONEPEZIL HCL 5 MG TAB PO SCH ×2 (09:58→20:33)
[2017-01-07] MEDS: ASPIRIN EC 81 MG TABEC PO SCH (09:59)
--- NOTE | 2017-01-07 10:07 | HHI.PYPN ---
Subjective Remarks Patient seen in her room with nurse Day and medical student Yanira, compliant medications, patient somewhat isolative today, though continues pleasant with us. Continues to except a recommendations for placement. For now continue treatment Review of Systems Except as stated in HPI: all other systems reviewed are Neg Objective Alert: Yes [place]: Person, Place, Date Mood: Calm Affect: Restricted Memory Intact: Immediate, Recent (mildly impaired) Hallucinations: Other (patient admitted to occasionally talking to herself) Delusions: Yes Delusion Type: Paranoid Suicidal: Ideation (denies) Homicidal: Ideation (denies) Insight/Judgement Poor Vitals/IOs Vital Signs Date Time Temp Pulse Resp B/P Pulse Ox O2 Delivery O2 Flow Rate FiO2 01/07/17 05:43 98.2 70 17 145/64 94 Intake and Output 01/06/17 01/06/17 01/07/17 08:00 16:00 00:00 Intake Total 120 ml 1200 ml 1080 ml Balance 120 ml 1200 ml 1080 ml Assessment & Plan Problem List: (1) OTH PSYCH DISORDER NOT DUE TO A SUB OR KNOWN PHYSIOL COND ICD Code: F28 Assessment & Plan Estimated LOS: days patient continues somewhat confused irritable isolating, though affect has improved. Continue to work on placement issues Justification for Cont. Inpt. At this time patient will decompensate if placed in the lower level of care Discharge Planning To be determined Request HC Surrog/Guard Advoc?: Yes Jd Damon MD Jan 07, 2017 10:07
[2017-01-07 18:36] VITALS: BP 136/62; PULSE 71; RESP 17; TEMP 98; O2SAT 99
[2017-01-07] MEDS: MIRTAZAPINE 15 MG TAB PO SCH (20:33)
[2017-01-07] MEDS: OLANZapine 10 MG TAB PO SCH (20:34)
[2017-01-08 05:57] VITALS: BP 119/57; PULSE 62; RESP 16; TEMP 96.4; O2SAT 96
[2017-01-08] MEDS: LISINOPRIL 5 MG TAB PO SCH (09:21)
[2017-01-08] MEDS: ASPIRIN EC 81 MG TABEC PO SCH (09:21)
[2017-01-08] MEDS: metFORMIN HCL 500 MG TAB PO SCH ×2 (09:21→20:39)
[2017-01-08] MEDS: DONEPEZIL HCL 5 MG TAB PO SCH ×2 (09:21→20:39)
[2017-01-08] MEDS: OLANZapine 5 MG TAB PO SCH (09:22)
[2017-01-08] MEDS ORDERED: EUCERIN CREAM 120 GM JAR TOPICAL PRN (13:30)
--- NOTE | 2017-01-08 14:40 | HHI.PYPN ---
Subjective Remarks Patient was seen and case discussed with nursing. Patient is initially pleasant and becomes mildly argumentative. She is argumentative and nursing when taking medication. She continues to have poor insight into her mental health and claims that she may stop taking her medications when she leaves the hospital. Psychoeducation was done about importance of medications. Denies auditory visual hallucinations, denies suicidal ideations intent or plan Objective Alert: Yes [place]: Person, Place, Date Mood: Calm Affect: Restricted Memory Intact: Immediate, Recent (mildly impaired) Hallucinations: Other (patient admitted to occasionally talking to herself) Delusions: Yes Delusion Type: Paranoid Suicidal: Ideation (denies) Homicidal: Ideation (denies) Insight/Judgement Poor Vitals/IOs Vital Signs Date Time Temp Pulse Resp B/P Pulse Ox O2 Delivery O2 Flow Rate FiO2 01/08/17 05:57 96.4 62 16 119/57 96 Intake and Output 01/07/17 01/07/17 01/08/17 08:00 16:00 00:00 Intake Total 1080 ml 600 ml Balance 1080 ml 600 ml Assessment & Plan Problem List: (1) OTH PSYCH DISORDER NOT DUE TO A SUB OR KNOWN PHYSIOL COND ICD Code: F28 Assessment & Plan Continue current treatment plan Justification for Cont. Inpt. Patient will decompensate in a less restrictive setting Request HC Surrog/Guard Advoc?: Yes Osito Arnold DO Jan 08, 2017 14:40
[2017-01-08 17:58] VITALS: BP 152/68; PULSE 79; RESP 16; TEMP 98.2; O2SAT 98
[2017-01-08] MEDS: MIRTAZAPINE 15 MG TAB PO SCH (20:39)
[2017-01-08] MEDS: OLANZapine 10 MG TAB PO SCH (20:50)
[2017-01-09 06:39] VITALS: BP 136/64; PULSE 71; RESP 16; TEMP 97.6; O2SAT 97
[2017-01-09] MEDS: metFORMIN HCL 500 MG TAB PO SCH ×2 (08:42→20:44)
[2017-01-09] MEDS: ASPIRIN EC 81 MG TABEC PO SCH (08:42)
[2017-01-09] MEDS: OLANZapine 5 MG TAB PO SCH (08:42)
[2017-01-09] MEDS: LISINOPRIL 5 MG TAB PO SCH (08:42)
[2017-01-09] MEDS: DONEPEZIL HCL 5 MG TAB PO SCH ×2 (08:42→20:44)
--- NOTE | 2017-01-09 11:46 | HHI.PYPN ---
Subjective Remarks Patient was seen and case discussed with nursing. Per nursing she remains hesitant taking medications. Continues to have a fixed delusion that a woman was stealing her identity including forging her Social Security card. Behaving well on the unit. No other delusions elicited. Denies suicidal ideations thought intent or plan Objective Alert: Yes [place]: Person, Place, Date Mood: Calm Affect: Restricted Memory Intact: Immediate, Recent (mildly impaired) Hallucinations: Other (patient admitted to occasionally talking to herself) Delusions: Yes Delusion Type: Paranoid Suicidal: Ideation (denies) Homicidal: Ideation (denies) Insight/Judgement Poor Vitals/IOs Vital Signs Date Time Temp Pulse Resp B/P Pulse Ox O2 Delivery O2 Flow Rate FiO2 01/09/17 06:39 97.6 71 16 136/64 97 Intake and Output 01/08/17 01/08/17 01/09/17 08:00 16:00 00:00 Intake Total 0 ml 960 ml 840 ml Balance 0 ml 960 ml 840 ml Assessment & Plan Problem List: (1) OTH PSYCH DISORDER NOT DUE TO A SUB OR KNOWN PHYSIOL COND ICD Code: F28 Assessment & Plan Continue current treatment plan Justification for Cont. Inpt. Patient will decompensate in a less restrictive setting Request HC Surrog/Guard Advoc?: Yes Osito Arnold DO Jan 09, 2017 11:46
[2017-01-09 18:00] VITALS: BP 122/59; PULSE 83; RESP 16; TEMP 98.5; O2SAT 98
[2017-01-09] MEDS: MIRTAZAPINE 15 MG TAB PO SCH (20:44)
[2017-01-09] MEDS: OLANZapine 10 MG TAB PO SCH (20:45)
[2017-01-10 06:36] VITALS: BP 126/58; PULSE 64; RESP 18; TEMP 97.5; O2SAT 98
[2017-01-10] MEDS: OLANZapine 5 MG TAB PO SCH (08:41)
[2017-01-10] MEDS: DONEPEZIL HCL 5 MG TAB PO SCH ×2 (08:41→20:43)
[2017-01-10] MEDS: ASPIRIN EC 81 MG TABEC PO SCH (08:41)
[2017-01-10] MEDS: metFORMIN HCL 500 MG TAB PO SCH ×2 (08:41→20:43)
[2017-01-10] MEDS: LISINOPRIL 5 MG TAB PO SCH (08:41)
--- NOTE | 2017-01-10 13:09 | HHI.PYPN ---
Subjective Remarks Patient was seen and case discussed with nursing. Patient is pleasant but guarded. Less resistant with taking her medications today. Continues to have poor insight into her mental health and her admission. Largely seclusive to self. Denies auditory visual hallucinations. Denies suicidal ideations intent or plan. Behaving well on the unit Objective Alert: Yes [place]: Person, Place, Date Mood: Calm Affect: Restricted Memory Intact: Immediate, Recent (mildly impaired) Hallucinations: Other (patient admitted to occasionally talking to herself) Delusions: Yes Delusion Type: Paranoid Suicidal: Ideation (denies) Homicidal: Ideation (denies) Insight/Judgement Poor Vitals/IOs Vital Signs Date Time Temp Pulse Resp B/P Pulse Ox O2 Delivery O2 Flow Rate FiO2 01/10/17 06:36 97.5 64 18 126/58 98 Intake and Output 01/09/17 01/09/17 01/10/17 08:00 16:00 00:00 Intake Total 360 ml 360 ml 1200 ml Balance 360 ml 360 ml 1200 ml Assessment & Plan Problem List: (1) OTH PSYCH DISORDER NOT DUE TO A SUB OR KNOWN PHYSIOL COND ICD Code: F28 Assessment & Plan Continue current treatment plan Justification for Cont. Inpt. Patient will decompensate in a less restrictive setting Request HC Surrog/Guard Advoc?: Yes Osito Arnold DO Jan 10, 2017 13:09
[2017-01-10 16:38] VITALS: BP 157/69; PULSE 75; RESP 18; TEMP 98; O2SAT 97
[2017-01-10] MEDS: MIRTAZAPINE 15 MG TAB PO SCH (20:43)
[2017-01-10] MEDS: OLANZapine 10 MG TAB PO SCH (20:43)
[2017-01-11 05:50] VITALS: BP 163/67; PULSE 69; RESP 18; TEMP 97.6; O2SAT 97
[2017-01-11] MEDS: DONEPEZIL HCL 5 MG TAB PO SCH (08:33)
[2017-01-11] MEDS: OLANZapine 5 MG TAB PO SCH (08:33)
[2017-01-11] MEDS: ASPIRIN EC 81 MG TABEC PO SCH (08:34)
[2017-01-11] MEDS: LISINOPRIL 5 MG TAB PO SCH (08:34)
[2017-01-11] MEDS: metFORMIN HCL 500 MG TAB PO SCH (08:34)
[2017-01-11] MEDS ORDERED: ARIC5TAB PO (13:33)
[2017-01-11] MEDS ORDERED: METF500 PO (13:33)
[2017-01-11] MEDS ORDERED: MIRTA15 PO (13:33)
[2017-01-11] MEDS ORDERED: ASPI81TA11 PO (13:33)
[2017-01-11] MEDS ORDERED: OLAN10TA PO (13:33)
[2017-01-11] MEDS ORDERED: OLAN5TAB PO (13:33)
[2017-01-11] MEDS ORDERED: LISI-519 PO (13:33)
--- NOTE | 2017-01-11 13:45 | HHI.DS ---
Psychiatry Discharge Summary Inpatient Psychiatric care?: Yes Advance Directive: No Reason Not Provided: refused Mental Health AdvanceDirective: No Health Care Proxy: No Admission Admission Date Dec 11, 2016 at 15:30 Admission Diagnosis: (1) OTH PSYCH DISORDER NOT DUE TO A SUB OR KNOWN PHYSIOL COND ICD Code: F28 Brief History Pt was seen and discussed with staff and chart reviewed. She remains paranoid and has been refusing medications. Staff report that pt is easily agitated and aggressive. Very poor insight into conditions. She states that she will only take medications if nurses reveal "the codes" to her. Tobacco Use In Past 30 Days: No Tobacco Past 30 Days Alcohol Use: Never Hospital Course Patient's hospital course showed initial paranoia confusion focusing on her son. Son did travel down here from [place] spoke with his mother desire that he would wish ultimately for her to return to [place] for placement and services. However he did realize was unable to do that at this time. Patient course in the hospital showed gradual softening of the paranoia and increased focus and orientation. She also relies that she was unable to return to her home at this time is willing to go to an [facility]. Patient denies suicidality homicidality voices or visions at the present time she has been calm cooperative with no behavioral problems, compliant with her medications. Patient has been interviewed by Bridgette lockhart. The medical limited to her there is a bed available today for at that facility us patient be discharged today to [facility], Rx 1 month, follow-up mental health services through that facility Results Blood Pressure 163 / 67 Vital Signs Date Time Temp Pulse Resp B/P Pulse Ox O2 Delivery O2 Flow Rate FiO2 01/11/17 05:50 97.6 69 18 163/67 97 Urine toxicology done on 12/09 was negative during visit [id number] Summary of Procedures None done Pending results at discharge: No Medications # of Antipsychotic meds at D/C: 1 Approp Antipsych med options 1 - Minimum of three failed multiple trials of monotherapy. 2 - Documented plan to taper to monotherapy due to previous use of multiple meds OR cross-taper in progress at D/C. 3 - Documentation of augmentation of Clozapine. 4 - Justification other than those listed in allowable values 1-3, document here : Discharge Discharge Date: Jan 11, 2017 Discharge Diagnosis: (1) OTH PSYCH DISORDER NOT DUE TO A SUB OR KNOWN PHYSIOL COND ICD Code: F28 Mental Status Exam at Disch Alert white female appears stated age, she has normal active, she is euthymic with slight decrease range intensity of her affect, speech rate and rhythm are within normal limits is somewhat tangential, but no auditory or visual hallucinations no delusions noted, her vague paranoia relating to her son has just about resolved. Insight and judgment is poor cognition is grossly intact Pt Condition on Discharge: Stable Discharge Disposition: [facility] Discharge Instructions Diet Instructions: Diabetic Diet Additional Diet Instructions: 1800-calorie diabetic diet Activities you can perform: Regular-No Restrictions Scheduled Appointment: [facility] Lock[facility] Discharge Time > 30 minutes Discharge/Advance Care Plan Health Problems: (1) OTH PSYCH DISORDER NOT DUE TO A SUB OR KNOWN PHYSIOL COND Goals to promote your health * To prevent worsening of your condition and complications * To maintain your health at the optimal level Directions to meet your goals Take your medications as prescribed Follow your dietary instruction Follow activity as directed Keep your appointments as scheduled Take your immunizations and boosters as scheduled If your symptoms worsen call your PCP, if no PCP go to Urgent Care Center or Emergency Room For 07/06 questions related to your inpatient stay or results of tests pending at discharge, please contact Dr. Jd Damon at Smoking is Dangerous to Your Health. Avoid second hand smoking Jd Damon MD Jan 11, 2017 13:45
== END 2017-01-11 14:10 | DRG 885 ==
LOC: H260 15:30 → H250 12-16 21:33
PROVIDERS: ADMIT Psychiatry & Neurology Psychiatry; ATTEND Psychiatry & Neurology Psychiatry
DX: F28 Other psychotic disorder not due to a substance or known physiological condition (principal); E11.9 Type 2 diabetes mellitus without complications; Z79.84 Long term (current) use of oral hypoglycemic drugs; I25.10 Atherosclerotic heart disease of native coronary artery without angina pectoris; I25.2 Old myocardial infarction; Z95.1 Presence of aortocoronary bypass graft; Z95.2 Presence of prosthetic heart valve; Z95.5 Presence of coronary angioplasty implant and graft; Z86.73 Personal history of transient ischemic attack (TIA), and cerebral infarction without residual deficits; Z85.3 Personal history of malignant neoplasm of breast; I10 Essential (primary) hypertension
CPT/HCPCS: J1200; J1630; J2060

== ENCOUNTER 2017-06-13 08:30 | Inpatient (IN) | payer OTHER, MEDICARE ==
[2017-06-12 21:15] VITALS: BP 163/69; PULSE 92; RESP 20; TEMP 96.2; O2SAT 92
[~2017-06-13] VITALS: Ht 165.1 cm; Wt 69.4 kg
[2017-06-13] VITALS (9 sets, daily range): BP systolic 114–154; BP diastolic 56–67; PULSE 77–93; RESP 16–20; TEMP 97.2–98.8; O2SAT 91–98
[~2017-06-13 08:30] MED LIST changes: +ARIC5TAB PO; +ASPI81TA11 PO; +LISI-519 PO; +MIRTA15 PO; +OLAN10TA PO; +OLAN5TAB PO; -REME15TA PO
--- NOTE | 2017-06-13 09:13 | PD ---
HPI Chief Complaint: Altered Mental Status Time Seen by Provider: 09:01 Travel History International Travel<30 days: No Contact w/Intl Traveler<30days: No Traveled to known affect area: No History of Present Illness HPI [facility] Paramedics didn't have much in the way of other details. I placed a call to the [facility]iary physician to discuss. Patient does not know why she is here. She is able to say her name but ignores most other questions. She follows commands to some degree. She is DNR. She had lab studies 5 days ago showing a hemoglobin of 6.7 and trying to find out with the [facility]iary physician did or thought about that. She cannot provide history or review of systems. I have spoken with the [facility]iary physician. She knows this patient well. She has advanced dementia and as poor baseline mental status and that is nothing to do with why she is here. She has known severe anemia but because she was compensated with normal vital signs she did not transfuse her. She is always very pale. Patient was sent here today because of epistaxis. At this time her nosebleed has stopped. There was no injury. She takes no blood thinners but is taking a daily baby aspirin which we will stop. PFSH Past Medical History Arthritis: Yes Blood Disorders: No Anxiety: No Depression: No Heart Rhythm Problems: Yes Cancer: Yes (rt mastectomy is presently receiving chemo ) Cardiac Catheterization: Yes (STENT PLACEMENT) Cardiovascular Problems: Yes (stents ) Chest Pain: No Cerebrovascular Accident: Yes Diabetes: Yes Patient Takes Glucophage: No Diminished Hearing: No Endocrine: Yes (DIABETES) Gastrointestinal Disorders: Yes (GERD) GERD: Yes Genitourinary: No Headaches: No Hepatitis: No Hiatal Hernia: Yes Hypertension: Yes Immune Disorder: No Implanted Vascular Access Dvce: Yes Musculoskeletal: Yes (LEFT HIP REPLACEMENT) Neurologic: No Psychiatric: No Reproductive: Yes (HYSTERCTOMY) Respiratory: No Thyroid Disease: No PNEUMOCCOCAL Vaccine (Year): 1 ?: Not Menopausal: Yes : 1 Para: 2 Past Surgical History Abdominal Surgery: Yes (HYSTERECTOMY) Appendectomy: Yes Body Medical Devices: L HIP REPLACEMENT, LEFT INFUSAPORT Cardiac Surgery: Yes (OPEN HEART pacemaker) Section: Yes Cholecystectomy: Yes Endocrine Surgery: Yes Genitourinary Surgery: No Gynecologic Surgery: Yes Hysterectomy: Yes Joint Replacement: Yes (left hip replacement) Pacemaker: Yes (MEDTRONIC) Other Surgery: Yes (HYSTERECTOMY, LEFT HIP REPLACEMENT, INFUSAPORT PLACED) Social History Alcohol Use: No Tobacco Use: No (yrs ago) Substance Use: No Allergies-Medications (Allergen,Severity, Reaction): Coded Allergies: No Known Allergies (Verified , 06/13/17) Reported Meds & Prescriptions Reported Meds & Active Scripts Active Glucophage (Metformin HCl) 500 Mg Tab 1,000 Mg PO 2 PO BID Aspirin EC (Aspirin) 81 Mg Tabdr 81 Mg PO DAILY Reported Olanzapine 10 Mg Tab 10 Mg PO BID Cipro (Ciprofloxacin HCl) 250 Mg Tab 250 Mg PO BID 5 Days Lisinopril 20 Mg Tab 20 Mg PO DAILY Review of Systems ROS Limitations: Clinical Condition, Altered Mental Status, Poor Historian Physical Exam Narrative GENERAL: Extremely pale well-developed patient in no apparent distress. SKIN: Focused skin assessment reveals no rash and nodules. Skin is Warm and dry. HEAD: Atraumatic. Normocephalic. EYES: Pupils equal and round. No scleral icterus. No injection or drainage. ENT: Dry blood in each nares but no active bleeding. Mucous membranes pink and moist. NECK: Trachea midline. No JVD. CARDIOVASCULAR: Regular rate and rhythm. No murmur appreciated. RESPIRATORY: No accessory muscle use. Clear to auscultation. Breath sounds equal bilaterally. GASTROINTESTINAL: Abdomen soft, non-tender, nondistended. Hepatic and splenic margins not palpable. MUSCULOSKELETAL: No obvious deformities. No clubbing. No cyanosis. No edema. NEUROLOGICAL: Awake and following commands but very soft spoken and seems a bit confused. No obvious cranial nerve deficits. Motor exam shows no obvious asymmetry but her effort is pretty minimal. Soft-spoken but understandable speech. PSYCHIATRIC: Very flat mood and affect; insight and judgment reduced . Data Data Last Documented VS Vital Signs Date Time Temp Pulse Resp B/P Pulse Ox O2 Delivery O2 Flow Rate FiO2 06/13/17 09:06 98 Room Air 06/13/17 08:45 77 13 06/13/17 08:45 97.2 Orders Complete Blood Count With Diff (06/13/17 09:01) Comprehensive Metabolic Panel (06/13/17 09:01) Prothrombin Time / Inr (Pt) (06/13/17 09:01) Act Partial Throm Time (Ptt) (06/13/17 09:01) Blood Glucose (06/13/17 09:01) Ecg Monitoring (06/13/17 09:01) Iv Access Insert/Monitor (06/13/17 09:01) Oximetry (06/13/17 09:01) Sodium Chloride 0.9% Flush (Ns Flush) (06/13/17 09:15) Electrocardiogram (06/13/17 ) Horticultural Services Supervisor / Telemetry SARAH.[email or web address] (06/13/17 09:53) Insulin Human Regular Inj (Novolin R Inj (06/13/17 10:00) Dextrose 50% In Darlin (Vial) Inj (D50w (Vi (06/13/17 10:00) Sodium Bicarbonate 8.4% Inj (Sodium Bica (06/13/17 10:00) Sodium Polysty Sulfate Liq (Kayexalate L (06/13/17 10:00) Dextrose 50% In Darlin (Syr) Inj (D50w (Syr (06/13/17 10:00) Dextrose 50% In Darlin (Syr) Inj (D50w (Syr (06/13/17 10:07) Labs Laboratory Tests Test 06/13/17 09:15 White Blood Count 7.5 TH/MM3 Red Blood Count 2.01 MIL/MM3 Hemoglobin 6.3 GM/DL Hematocrit 18.8 % Mean Corpuscular Volume 93.2 FL Mean Corpuscular Hemoglobin 31.5 PG Mean Corpuscular Hemoglobin 33.8 % Concent Red Cell Distribution Width 15.3 % Platelet Count 107 TH/MM3 Mean Platelet Volume 10.8 FL Neutrophils (%) (Auto) 74.2 % Lymphocytes (%) (Auto) 15.2 % Monocytes (%) (Auto) 8.9 % Eosinophils (%) (Auto) 1.0 % Basophils (%) (Auto) 0.7 % Neutrophils # (Auto) 5.6 TH/MM3 Lymphocytes # (Auto) 1.1 TH/MM3 Monocytes # (Auto) 0.7 TH/MM3 Eosinophils # (Auto) 0.1 TH/MM3 Basophils # (Auto) 0.1 TH/MM3 CBC Comment DIFF FINAL Differential Comment Prothrombin Time 13.5 SEC Prothromb Time International 1.2 RATIO Ratio Activated Partial 29.5 SEC Thromboplast Time Sodium Level 140 MEQ/L Potassium Level 6.1 MEQ/L Chloride Level 112 MEQ/L Carbon Dioxide Level 16.1 MEQ/L Anion Gap 12 MEQ/L Blood Urea Nitrogen 51 MG/DL Creatinine 1.93 MG/DL Estimat Glomerular Filtration 26 ML/MIN Rate Random Glucose 174 MG/DL Calcium Level 9.0 MG/DL Total Bilirubin 0.6 MG/DL Aspartate Amino Transf 115 U/L (AST/SGOT) Alanine Aminotransferase 35 U/L (ALT/SGPT) Alkaline Phosphatase 245 U/L Total Protein 7.0 GM/DL Albumin 3.4 GM/DL MDM Medical Decision Making Medical Screen Exam Complete: Yes Emergency Medical Condition: Yes Medical Record Reviewed: Yes Differential Diagnosis Symptomatic anemia, dementia, epistaxis Narrative Course I have reviewed the patient's electronic medical record. His recent H&P when she was admitted for delusional disorder. Reviewed her lab studies from 5 days ago on her medication list and spoke with her physician IV placed CBC shows hemoglobin of 6.3 down from prior 6.7 5 days ago Metabolic profile shows worsening of BUN and creatinine and potassium at 6.1 LFTs are normal Coagulation studies are normal Patient has poor baseline mental status but becoming more withdrawn and weak. I believe her anemia symptomatic. She will require blood transfusion. Also she has significantly elevated potassium and I gave her IV glucose and IV insulin and IV bicarbonate and Kayexalate to lower the potassium LOU inhibitor should be held I reviewed her EKG which does not show any severe arrhythmia or peaked T waves. She does have first-degree AV block She will be admitted to telemetry unit for lowering of potassium and potassium monitoring as well as blood transfusion Her nosebleed has stopped No evidence of GI bleed at this time, Hemoccult was negative Critical Care Narrative Aggregate critical care time was 35 minutes. Time to perform other separately billable procedures was not included in the critical care time. My time did not include minutes spent treating any other patients simultaneously or on activities that did not directly contribute to the patient's treatment. The services I provided to this patient were to treat and/or prevent clinically significant deterioration that could result in: Hemorrhagic shock, cardiopulmonary arrest, cardiac arrhythmia from hyperkalemia I provided critical care services requiring my management, as noted below: Chart data review, documentation time, medication orders and management, vital sign assessments/reviewing monitor data, ordering and reviewing lab tests, ordering and interpreting/reviewing x-rays and diagnostic studies, care of the patient and discussion of the patient with the admitting physicians. HemaPrompt Point of Care Internal Pos. & Neg. Controls: Passed Fecal Specimen Occult Blood: Negative Diagnosis Primary Impression: Acute hyperkalemia Additional Impressions: Symptomatic anemia Azotemia Admitting Information Admitting Physician Requests: Admit Adam Lombardi MD Jun 13, 2017 09:13
[2017-06-13] MEDS ORDERED: SODIUM CHLORIDE 0.9% FLUSH 5 ML FLUSH IV FLUSH PRN (09:15)
[2017-06-13 09:22] LABS: AUTOMATED NEUTROPHIL # 5.6 TH/MM3 (1.8-7.7); BASOPHIL # 0.1 TH/MM3 (0-0.2); BASOPHIL % 0.7 % (0.0-2.0); EOSINOPHIL # 0.1 TH/MM3 (0-0.4); LYMPH % 15.2 % (9.0-44.0); LYMPHOCYTE # 1.1 TH/MM3 (1.0-4.8); MEAN CELL VOLUME 93.2 FL (80.0-100.0); MEAN CORPUSCULAR HEMOGLOBIN 31.5 PG (27.0-34.0); MEAN CORPUSCULAR HGB CONC 33.8 % (32.0-36.0); MONO % 8.9 % (0.0-8.0); NEUT % 74.2 % (16.0-70.0); PLATELET COUNT 107 TH/MM3 (150-450); RED BLOOD COUNT 2.01 MIL/MM3 (4.00-5.30); RED CELL DISTRIBUTION WIDTH 15.3 % (11.6-17.2); WHITE BLOOD COUNT 7.5 TH/MM3 (4.0-11.0)
[2017-06-13 09:24] LABS: HEMO FLAGS DIFF FINAL
[2017-06-13 09:29] LABS: HEMATOCRIT 18.8 % (35.0-46.0)
[2017-06-13 09:31] LABS: APTT (PATIENT) 29.5 SEC (24.3-30.1); INTERNATIONAL NORMALIZED RATIO 1.2 RATIO; PROTHROMBIN TIME - PATIENT 13.5 SEC (9.8-11.6)
[2017-06-13 09:36] LABS: ALT (GPT) 35 U/L (10-53); ANION GAP 12 MEQ/L (5-15); AST (GOT) 115 U/L (15-37); BICARBONATE 16.1 MEQ/L (21.0-32.0); BLOOD UREA NITROGEN 51 MG/DL (7-18); CHLORIDE 112 MEQ/L (98-107); GLOMERULAR FILTRATION RATE 26 ML/MIN (>89); POTASSIUM 6.1 MEQ/L (3.5-5.1); SODIUM (NA) 140 MEQ/L (136-145)
[2017-06-13 09:39] LABS: ALKALINE PHOSPHATASE 245 U/L (45-117); TOTAL BILIRUBIN ADULT 0.6 MG/DL (0.2-1.0)
[2017-06-13] MEDS ORDERED: LISI-515 PO (09:53)
[2017-06-13] MEDS ORDERED: CIPR250T52 PO (09:53)
[2017-06-13] MEDS ORDERED: OLAN10TA PO (09:54)
[2017-06-13] MEDS ORDERED: DEXTROSE 50% IN WATER 50 ML VIAL(D50) IV PUSH ONE (10:00)
[2017-06-13] MEDS ORDERED: SODIUM BICARBONATE 8.4% SOLN 50 MEQ/50 ML VIAL SLOW IVP ONE (10:00)
[2017-06-13] MEDS ORDERED: SODIUM POLYSTYRENE SULFONATE SUSP 15 GM/60 ML CUP PO ONE (10:00)
[2017-06-13] MEDS ORDERED: INSULIN HUMAN REGULAR 1,000 UNITS/10 ML VIAL IV PUSH ONE (10:00)
[2017-06-13] MEDS ORDERED: DEXTROSE 50% IN WATER 50 ML SYRINGE IV PUSH ONE (10:00)
[2017-06-13] MEDS ORDERED: DEXTROSE 50% IN WATER 50 ML SYRINGE ONE (10:07)
[2017-06-13] MEDS ORDERED: BISACODYL 10 MG SUPP RECTAL PRN (11:15)
[2017-06-13] MEDS ORDERED: diphenhydrAMINE HCL 25 MG CAP PO PRN (11:15)
[2017-06-13] MEDS ORDERED: ONDANSETRON HCL 4 MG/2 ML VIAL IVP PRN (11:15)
[2017-06-13] MEDS ORDERED: ACETAMINOPHEN 325 MG TAB PO PRN ×2 (11:15)
[2017-06-13] MEDS ORDERED: MAGNESIUM HYDROXIDE SUSP 30 ML CUP PO PRN (11:15)
[2017-06-13] MEDS ORDERED: SODIUM CHLORIDE 0.9% FLUSH 10 ML FLUSH IV FLUSH PRN (11:15)
[2017-06-13] MEDS ORDERED: SODIUM CHLOR 0.9% 250 ML INJ 250 ML IV ONE (11:15)
[2017-06-13] MEDS ORDERED: SENNOSIDES 8.6 MG TAB PO PRN (11:15)
[2017-06-13] MEDS ORDERED: LACTULOSE SYRUP 20 GM/30 ML CUP PO PRN (11:15)
[2017-06-13] MEDS ORDERED: NALOXONE HCL 0.4 MG/ML AMP IV PRN (11:15)
[2017-06-13] MEDS ORDERED: RESP: ALBUTEROL CONC 2.5 MG/0.5 ML NEB INH ONE (12:00)
[2017-06-13] MEDS ORDERED: FUROSEMIDE 20 MG/2 ML VIAL IV ONE (12:00)
[2017-06-13] MEDS ORDERED: GLUCAGON 1 MG/ML VIAL OTHER PRN (13:00)
[2017-06-13] MEDS ORDERED: DEXTROSE 50% IN WATER 50 ML VIAL(D50) IV PRN (13:00)
[2017-06-13] MEDS ORDERED: SODIUM CHLOR 0.9% 1000 ML INJ 1,000 ML IV SCH (13:00)
--- NOTE | 2017-06-13 13:02 | HHI.HP ---
[facility] Service [facility] Primary Care Physician Jd Damon MD Admission Diagnosis hyperkalemia,symptomatic anemia,azotemia Diagnoses: Chief Complaint: Anemia Travel History International Travel<30 Days: No Contact w/Intl Traveler <30 Da: No Traveled to Known Affected Are: No History of Present Illness Written by Rajesh Almodovar, acting as scribe for Dr. Velazco on 06/13/17 at 12:17. This note was transcribed by scribJUANIS Chase. I, Dr. Shiva Velazco personally performed the history, physical exam, and medical decision making; and confirmed the accuracy of the information in the transcribed note. Authenticated by Dr. Shiva Velazco on 06/13/17 at 20:51. 71-year-old female with past medical history of delusional disorder, breast cancer, DM, CAD, CVA who was sent from [facility] for nosebleed and anemia. The patient is currently intermittently lethargic. She does wake upon entering the room, but went back to sleep. She does withdraw to painful stimuli. She does answer to her name, but can't say what her last name is. She doesn't answer regarding orientation questions. She follows some commands, will move extremities to command, but won't open her eyes. She only speaks incoherently. Thus, history is obtained from ED communication and the medical record. The patient had been noted to be anemic lately. She had outpatient labs 06/08 which showed a hemoglobin of 6.5. She was not sent for transfusion at the time. Reportedly she was recently on aspirin, but this is no longer on her med rec from [facility]. She began having nosebleed today which spontaneously resolved by the time she presented to the ED. Her hemoglobin was found to be 6.3. The ED physician spoke to her PCP at the [facility], and reportedly patient is at her baseline mental status which is demented. The patient was Hemoccult negative. The patient was admitted for blood transfusion. Blood pressure is 130/58 during evaluation. Review of Systems ROS Limitations: Altered Mental Status, Poor Historian Past Family Social History Past Medical History Dementia Delusional disorder History of breast cancer Coronary artery disease History of stroke Diabetes mellitus Past Surgical History CABG Hysterectomy Hip surgery Reported Medications Glucophage (Metformin HCl) 500 Mg Tab 1,000 Mg PO 2 PO BID Aspirin EC (Aspirin) 81 Mg Tabdr 81 Mg PO DAILY Olanzapine 10 Mg Tab 10 Mg PO BID Cipro (Ciprofloxacin HCl) 250 Mg Tab 250 Mg PO BID 5 Days Lisinopril 20 Mg Tab 20 Mg PO DAILY Allergies: Coded Allergies: No Known Allergies (Verified , 06/13/17) Active Ordered Medications Current Medications Medications (Trade) Dose Ordered Sig/Shay Route Start Time Stop Time Status Last Admin (NS Flush) 2 ml UNSCH PRN IV FLUSH 06/13/17 11:15 (NS Flush) 2 ml BID IV FLUSH 06/13/17 21:00 (Tylenol) 650 mg Q4H PRN PO 06/13/17 11:15 (Zofran Inj) 4 mg Q6H PRN IVP 06/13/17 11:15 (Narcan Inj) 0.4 mg UNSCH PRN IV 06/13/17 11:15 (Dorothy-Colace) 1 tab BID PO 06/13/17 21:00 (Milk Of Magnesia Liq) 30 ml Q12H PRN PO 06/13/17 11:15 (Senokot) 17.2 mg Q12H PRN PO 06/13/17 11:15 (Dulcolax Supp) 10 mg DAILY PRN RECTAL 06/13/17 11:15 Lactulose 30 ml 30 ml DAILY PRN PO 06/13/17 11:15 (NS 250 ml Inj) 250 ml @ 15 mls/hr ONCE ONCE IV 06/13/17 11:15 06/14/17 03:54 (Tylenol) 650 mg Q4H PRN PO 06/13/17 11:15 06/13/17 15:16 (Benadryl) 25 mg Q4H PRN PO 06/13/17 11:15 06/13/17 15:16 Family History Unable to obtain secondary to patient's mental status Social History SNF resident Physical Exam Vital Signs Vital Signs Date Time Temp Pulse Resp B/P Pulse Ox O2 Delivery O2 Flow Rate FiO2 06/13/17 09:06 98 Room Air 06/13/17 08:45 77 13 96 Room Air 06/13/17 08:45 97.2 80 16 121/56 98 Room Air 06/13/17 08:40 77 18 121/56 97 Physical Exam GENERAL: Well-developed well-nourished. Lethargic. SKIN: Warm and dry. Pale. HEENT: Normocephalic. Pupils equal and round. Mucous membranes pink and moist. Dry blood in the nares. CARDIOVASCULAR: Regular rate and rhythm. No murmur appreciated. RESPIRATORY: No accessory muscle use. Clear to auscultation. Breath sounds equal bilaterally. GASTROINTESTINAL: Abdomen soft, non-tender, nondistended. Bowel sounds x4. MUSCULOSKELETAL: No obvious deformities. No clubbing or cyanosis. 1+ edema. NEUROLOGICAL: Lethargic, arouses to painful stimuli. One open eyes to commands , but will squeeze hands bilaterally. Normal speech, but not talkative. Laboratory Laboratory Tests Test 06/13/17 09:15 White Blood Count 7.5 Red Blood Count 2.01 Hemoglobin 6.3 Hematocrit 18.8 Mean Corpuscular Volume 93.2 Mean Corpuscular Hemoglobin 31.5 Mean Corpuscular Hemoglobin 33.8 Concent Red Cell Distribution Width 15.3 Platelet Count 107 Mean Platelet Volume 10.8 Neutrophils (%) (Auto) 74.2 Lymphocytes (%) (Auto) 15.2 Monocytes (%) (Auto) 8.9 Eosinophils (%) (Auto) 1.0 Basophils (%) (Auto) 0.7 Neutrophils # (Auto) 5.6 Lymphocytes # (Auto) 1.1 Monocytes # (Auto) 0.7 Eosinophils # (Auto) 0.1 Basophils # (Auto) 0.1 CBC Comment DIFF FINAL Differential Comment Prothrombin Time 13.5 Prothromb Time International 1.2 Ratio Activated Partial 29.5 Thromboplast Time Sodium Level 140 Potassium Level 6.1 Chloride Level 112 Carbon Dioxide Level 16.1 Anion Gap 12 Blood Urea Nitrogen 51 Creatinine 1.93 Estimat Glomerular Filtration 26 Rate Random Glucose 174 Calcium Level 9.0 Total Bilirubin 0.6 Aspartate Amino Transf 115 (AST/SGOT) Alanine Aminotransferase 35 (ALT/SGPT) Alkaline Phosphatase 245 Total Protein 7.0 Albumin 3.4 Result Diagram: 06/13/1715 06/13/1715 Assessment and Plan Assessment and Plan 71-year-old female with past medical history of delusional disorder, breast cancer, DM, CAD, CVA who was sent from SNF for nosebleed and anemia Anemia: Acute on chronic. Patient with nosebleed, spontaneously resolved today. Hemoglobin currently 6.3. Hemoglobin as outpatient 5 days ago was 6.4. Hemoglobin previously 12.0 on 12/09/16. Aspirin discontinued. Hemoccult negative. Transfuse 2 units PRBCs. Monitor H&H. Acute kidney injury with metabolic acidosis: Creatinine 1.93, previously 0.7 on 12/09/16. Bicarbonate 16. Gentle IVF, borderline low with transfusion. Follow- up BMP. Hold lisinopril. Hyperkalemia: Likely secondary to acute renal failure. EKG with no peaked T waves. Patient given insulin, dextrose, bicarbonate, Kayexalate in the ED. Repeat labs this afternoon. Acute encephalopathy: Likely metabolic secondary to the above on top of chronic dementia. Monitor for improvement. Neuro checks. Check UA. Hold Zyprexa. Diabetes mellitus: Hold home metformin. Monitor Accu-Cheks. SSI coverage if needed. DVT prophylaxis: SCDs Code Status The patient has 3 copies of a community DNR and her SNF paperwork Discussed Condition With Patient, ED staff Rajesh Almodovar Jun 13, 2017 13:01 Candice Velazco DO Jun 13, 2017 20:51
--- NOTE | 2017-06-13 14:53 | EKG ---
Date Performed: 06/13/2017 Time Performed: 08:44:37 PTAGE: 71 years EKG: Sinus rhythm WITH FIRST DEGREE AV BLOCK Poor R wave progression, cannot exclude anteroseptal MA of undetermined a ge Possible inferior wall MA of undetermined age Nonspecific ST- T wave changes Compared to PREVIOUS TRACING , VT interval is slightly shorter, otherwise no significant change ABNOR MAL ECG INTERPRETATION BASED ON A DEFAULT AGE OF 40 YEARS PREVIOUS TRACIN12/09/2016 20.00 DOCTOR: Manan Chisholm Interpretating Date/Time 06/13/2017 14:52:26
[2017-06-13] MEDS: INSULIN ASPART SUPPLEMENTAL SCALE SQ SCH ×2 (16:00→21:00)
[2017-06-13] MEDS: SODIUM CHLORIDE 0.9% FLUSH 10 ML FLUSH IV FLUSH SCH (21:29)
[2017-06-13] MEDS: DOCUSATE SODIUM 50 MG/SENNA 8.6 MG TAB PO SCH (21:31)
[2017-06-13 23:11] LABS: HEMATOCRIT 25.6 % (35.0-46.0); REVIEW FLAG FINAL
[2017-06-13 23:41] LABS: BICARBONATE 19.7 MEQ/L (21.0-32.0); POTASSIUM 5.4 MEQ/L (3.5-5.1)
[2017-06-13] MEDS: HALOPERIDOL LACTATE 5 MG/ML AMP IM PRN (23:43)
[2017-06-14] VITALS (9 sets, daily range): BP systolic 145–192; BP diastolic 64–111; PULSE 79–92; RESP 12–26; TEMP 97.1–98; O2SAT 92–94
[2017-06-14] MEDS ORDERED: FUROSEMIDE 20 MG/2 ML VIAL IV PUSH ONE ×3 (00:15→10:45)
--- NOTE | 2017-06-14 00:30 | RADRPT ---
EXAM DATE/TIME: 06/14/2017 00:01 [facility] COMPARISON: CHEST PA & LAT, December 10, 2016, 11:32. CHEST SINGLE AP, January 24, 2016, 16:20. INDICATIONS : Shortness of breath, wheezing MEDICAL HISTORY : Carcinoma, breast. SURGICAL HISTORY : CABG. Mastectomy, bilateral. Port placement ENCOUNTER: Initial ACUITY: 1 day PAIN SCORE: 8/10 LOCATION: Bilateral chest FINDINGS: A single AP semierect view of the chest was obtained and demonstrates new patchy infiltrate in both l ungs greatest in the perihilar regions. There is no distinct effusion. The patient is again noted to be status post median sternotomy and is mildly rotated. The left subclavian central venous line remai ns in place. The bony thorax is intact. There are multiple overlying electrocardiogram leads and oxyg en tubing. Heart size is at the upper limits of normal. CONCLUSION: New bilateral pulmonary infiltrates most characteristic of pulmonary edema. This may be cardiogenic or noncardiogenic in origin. Deepak Martin MD on June 14, 2017 at 0:27 Board Certified Radiologist. This report was verified electronically.
[2017-06-14 02:02] LABS: BACTERIA, URINE MOD /hpf; BLOOD, URINE NEG (NEG); COMMENT (UR) CULTURE INDICATED; CULTURE IF INDICATED CULTURE INDICATED; GLUCOSE,URINE NEG (NEG); HYALINE CAST, URINE 90 /lpf (RARE); KETONE, URINE NEG (NEG); MUCUS URINE FEW /lpf (OCC); NITRITE,URINE NEG (NEG); URINE COLOR YELLOW (YELLW/STRAW)
[2017-06-14] MEDS: INSULIN ASPART SUPPLEMENTAL SCALE SQ SCH ×4 (05:18→21:45)
[2017-06-14] MEDS: HALOPERIDOL LACTATE 5 MG/ML AMP IM PRN (05:39)
[2017-06-14 05:57] LABS: AUTOMATED NEUTROPHIL # 7.1 TH/MM3 (1.8-7.7); BASOPHIL % 0.3 % (0.0-2.0); EOSINOPHIL % 0.4 % (0.0-4.0); HEMATOCRIT 23.3 % (35.0-46.0); HEMO FLAGS DIFF FINAL; LYMPH % 13.4 % (9.0-44.0); LYMPHOCYTE # 1.3 TH/MM3 (1.0-4.8); MEAN CORPUSCULAR HEMOGLOBIN 31.8 PG (27.0-34.0); MEAN CORPUSCULAR HGB CONC 34.9 % (32.0-36.0); MONO % 9.9 % (0.0-8.0); PLATELET COUNT 107 TH/MM3 (150-450); RED BLOOD COUNT 2.56 MIL/MM3 (4.00-5.30); RED CELL DISTRIBUTION WIDTH 14.8 % (11.6-17.2); WHITE BLOOD COUNT 9.3 TH/MM3 (4.0-11.0)
[2017-06-14 06:13] LABS: BICARBONATE 19.7 MEQ/L (21.0-32.0); POTASSIUM 5.2 MEQ/L (3.5-5.1)
[2017-06-14] MEDS: SODIUM CHLORIDE 0.9% FLUSH 10 ML FLUSH IV FLUSH SCH ×2 (09:50→21:42)
[2017-06-14] MEDS: DOCUSATE SODIUM 50 MG/SENNA 8.6 MG TAB PO SCH ×2 (09:50→21:42)
[2017-06-14] MEDS: SODIUM POLYSTYRENE SULFONATE SUSP 15 GM/60 ML CUP PO SCH ×2 (11:00→21:42)
[2017-06-14] MEDS: PANTOPRAZOLE SOD 40 MG DELAYED RELEASE TAB PO SCH (21:30)
--- NOTE | 2017-06-14 21:43 | HHI.PR ---
Subjective Remarks Follow up for anemia, acute on chronic kidney injury. Patient is currently doing well, somewhat fatigued still. Denies any further epistaxis or any other bleeding. No fever, chills. Objective Vitals Vital Signs Date Time Temp Pulse Resp B/P Pulse Ox O2 Delivery O2 Flow Rate FiO2 06/14/17 21:12 147/65 06/14/17 16:00 97.4 82 22 161/71 94 06/14/17 12:00 98.0 92 26 162/68 92 06/14/17 08:22 92 Nasal Cannula 6.00 06/14/17 08:00 97.7 87 12 145/111 94 06/14/17 04:00 79 06/14/17 04:00 97.8 91 21 149/67 92 06/14/17 00:00 97.1 87 18 148/64 93 06/14/17 00:00 83 06/13/17 22:21 92 Nasal Cannula 6.00 I/O 06/13/17 06/13/17 06/13/17 06/14/17 06/14/17 06/14/17 07:00 15:00 23:00 07:00 15:00 23:00 Output Total 600 ml 275 ml Balance -600 ml -275 ml Output Urine Total 600 ml 275 ml # Voids 0 # Bowel Movements 0 Result Diagram: 06/14/17 0510 06/14/17 0510 Imaging Last Impressions Chest X-Ray 06/14/17 0000 Signed Impressions: Service Date/Time: Wednesday, June 14, 2017 00:01 - CONCLUSION: New bilateral pulmonary infiltrates most characteristic of pulmonary edema. This may be cardiogenic or noncardiogenic in origin. Deepak Martin MD Objective Remarks GENERAL: Alert, NAD. SKIN: Warm and dry. HEAD: Normocephalic. EYES: No scleral icterus. No injection or drainage. NECK: Supple, trachea midline. No JVD or lymphadenopathy. CARDIOVASCULAR: Regular rate and rhythm without murmurs, gallops, or rubs. RESPIRATORY: Breath sounds equal bilaterally. No accessory muscle use. GASTROINTESTINAL: Abdomen soft, non-tender, nondistended. MUSCULOSKELETAL: No cyanosis, or edema. BACK: Nontender without obvious deformity. No CVA tenderness. Procedures None. A/P Problem List: (1) Symptomatic anemia ICD Code: D64.9 Status: Acute (2) JOHN (acute kidney injury) ICD Code: N17.9 Status: Acute (3) Hyperkalemia ICD Code: E87.5 Status: Acute (4) Diabetes ICD Code: E11.9 Status: Chronic Assessment and Plan 71-year-old female with past medical history of delusional disorder, breast cancer, DM, CAD, CVA who was sent from SNF for nosebleed and anemia Anemia: Acute on chronic. Patient with nosebleed, spontaneously resolved. Hemoglobin on admission 6.3. Hemoglobin as outpatient 5 days ago was 6.4. Hemoglobin previously 12.0 on 12/09/16. Aspirin discontinued. Hemoccult negative. Transfused 2 units PRBCs. M - Hemoglobin 6.3 --> 8.9 --> 8.1. - Possibly slow GI bleed. - Will likely consult Gastroenterology for EGD/Colonoscopy. - Start Protonix 40mg Q12hrs. Acute kidney injury with metabolic acidosis: Creatinine 1.93, previously 0.7 on 12/09/16. Bicarbonate 16. Gentle IVF, borderline low with transfusion. Creatinine improved 1.93 --> 1.58. Hyperkalemia: Likely secondary to acute renal failure. EKG with no peaked T waves. Patient given insulin, dextrose, bicarbonate, Kayexalate in the ED. K+ 6.1 --> 5.2. Will give more Kayexalate. Acute encephalopathy: Likely metabolic secondary to the above on top of chronic dementia. Appears to be improved. Hold Zyprexa. - UA shows WBC 1. No evidence of UTI. - Speech evaluated - recommends pureed food with thin liquid. Diabetes mellitus - Glucose 179 - 205. Will start patient on Levemir 5 units QHS and continue Sliding scale insulin. DVT prophylaxis: Candice Marcelo DO Jun 14, 2017 21:42
[2017-06-14] MEDS: INSULIN DETEMIR 100 UNITS/ML VIAL SQ SCH (22:51)
[2017-06-15] VITALS (8 sets, daily range): BP systolic 129–162; BP diastolic 58–76; PULSE 80–98; RESP 18; TEMP 96.1–98.3; O2SAT 92–94
[2017-06-15 00:22] LABS: HEMATOCRIT 26.3 % (35.0-46.0); REVIEW FLAG FINAL
[2017-06-15] MEDS ORDERED: VANCOMYCIN INJ 2,000 MG in SODIUM CHLORID 0.9% 500 ML INJ 500 ML IV ONE (01:00)
[2017-06-15 05:58] LABS: BICARBONATE 21.1 MEQ/L (21.0-32.0); POTASSIUM 4.6 MEQ/L (3.5-5.1)
[2017-06-15] MEDS: INSULIN ASPART SUPPLEMENTAL SCALE SQ SCH ×4 (06:08→21:42)
[2017-06-15] MEDS: DOCUSATE SODIUM 50 MG/SENNA 8.6 MG TAB PO SCH ×2 (09:11→21:35)
[2017-06-15] MEDS: PANTOPRAZOLE SOD 40 MG DELAYED RELEASE TAB PO SCH ×2 (09:11→21:36)
[2017-06-15] MEDS: SODIUM CHLORIDE 0.9% FLUSH 10 ML FLUSH IV FLUSH SCH ×2 (09:12→21:36)
[2017-06-15] MEDS ORDERED: FUROSEMIDE 20 MG/2 ML VIAL IV PUSH ONE (09:45)
--- NOTE | 2017-06-15 10:16 | PD.CONS ---
HPI History of Present Illness This is a 71 year old female who was brought from a local nursing facility for evaluation of epistaxis with anemia. Her nosebleed resolved on its own without intervention. She was noted to have a H/H of 6.3/18.8. She was transfused 2 units PRBC and her repeat H/H has remained stable at 8.9/26.3. The patient is confused and oriented to self only. She is unable to provide much history. She denies any prior nosebleeds and denies any nausea, vomiting, or gastrointestinal bleeding. She does endorse mild abdominal pain, but is unable to tell me where or further characterize this. The nurse reports that she has not had any nosebleeds or signs of active bleeding. I called her son Lev . He is not aware of any prior history of GI bleeding or if she has ever had an EGD or colonoscopy. He is not aware of any liver disease. He does report that she has a history of breast cancer and at one point, there was some concern of liver cancer, but he states that he was under the impression that this came out okay. Looking at the past records, she was found to have multiple liver masses in 2015 and underwent a liver biopsy in March of 2016 which revealed metastatic poorly differentiated carcinoma consistent with breast primary in needle core biopsy of fibrotic liver. The last note by oncology in the EMR was with Dr. Ceron in November of 2016. According to this note, she was diagnosed with metastatic breast cancer in 2015. When she was seen in November of 2016, she was noted to have progression to the liver and lung while on Doxil and was on Halaven at that time. At that time, she wanted to continue treatment, but was having a hard time emotionally and was referred to psychiatry. It is unclear if she was seen by oncology after that appointment, as we do not have these records and the patient and son cannot tell me. The patient is currently resting in bed with no signs of active bleeding. Her breathing is slightly labored and the nurse reports that she went from room air to 6L via n/c overnight, although it appears that she was on 6L yesterday as well. She has crackles and is mildly labored and primary was notified. (Sofi Tapia) [facility] Past Medical History Arthritis Dementia Delusional disorder Metastatic breast cancer with disease to the liver and lung Coronary artery disease History of stroke Diabetes mellitus GERD Glaucoma Gout Valvular heart disease, s/p AVR Hemorrhoids HTN Past Surgical History CABG Hysterectomy Left hip surgery Appendectomy Carpal tunnel surgery bilateral wrist Cholecystectomy Infusaport Nasal surgery Thyroidectomy Tonsillectomy Mastectomy PPM placement Colonoscopy 1994 AVR (Sofi Tapia) Coded Allergies: No Known Allergies (Verified , 06/13/17) Medications Allergies Coded Allergies Type Severity Reaction Last Updated Verified No Known Allergies 06/13/17 Yes Active Scripts Medications Dose Route/Sig Days Date Category Olanzapine 10 Mg Tab 10 Mg PO BID 06/13/17 Reported Cipro (Ciprofloxacin HCl) 250 Mg Tab 250 Mg PO BID 5 06/13/17 Reported Lisinopril 20 Mg Tab 20 Mg PO DAILY 06/13/17 Reported Glucophage (Metformin HCl) 500 Mg Tab 1,000 Mg PO 2 PO BID 01/11/17 Rx Aspirin EC (Aspirin) 81 Mg Tabdr 81 Mg PO DAILY 01/11/17 Rx Family History Unable to obtain secondary to patient's mental status Social History SNF resident, unable to tell me if she smoked or drank etoh. (Sofi Tapia) Review of Systems Psychiatric: COMPLAINS OF: Confusion ROS Unable to obtain from patient (Sofi Tapia) GI Exam Vitals I&O Vital Signs Date Time Temp Pulse Resp B/P Pulse Ox O2 Delivery O2 Flow Rate FiO2 06/15/17 08:04 92 Nasal Cannula 6.00 06/15/17 04:00 97.5 89 18 162/76 93 06/15/17 04:00 80 06/15/17 00:00 96.1 89 18 150/70 93 06/15/17 00:00 81 06/14/17 21:54 93 Nasal Cannula 6.00 06/14/17 21:12 147/65 06/14/17 20:00 98.0 92 16 192/74 93 06/14/17 20:00 83 06/14/17 16:00 97.4 82 22 161/71 94 06/14/17 12:00 98.0 92 26 162/68 92 I/O 06/14/17 06/14/17 06/14/17 06/15/17 06/15/17 06/15/17 06:59 14:59 22:59 06:59 14:59 22:59 Intake Total 250 ml Output Total 600 ml 275 ml 750 ml Balance -600 ml -275 ml -500 ml Intake Oral 250 ml Output Urine Total 600 ml 275 ml 750 ml # Bowel Movements 0 0 Imaging Last Impressions Chest X-Ray 06/14/17 0000 Signed Impressions: Service Date/Time: Wednesday, June 14, 2017 00:01 - CONCLUSION: New bilateral pulmonary infiltrates most characteristic of pulmonary edema. This may be cardiogenic or noncardiogenic in origin. Deepak Martin MD Laboratory Test 06/14/17 06/15/17 23:30 04:40 Hemoglobin 8.9 GM/DL Hematocrit 26.3 % Sodium Level 145 MEQ/L Potassium Level 4.6 MEQ/L Chloride Level 113 MEQ/L Carbon Dioxide Level 21.1 MEQ/L Anion Gap 11 MEQ/L Blood Urea Nitrogen 54 MG/DL Creatinine 1.16 MG/DL Estimat Glomerular Filtration 46 ML/MIN Rate Random Glucose 176 MG/DL Calcium Level 8.9 MG/DL Date/Time Procedure Status Source Growth 06/14/17 00:45 Urine Culture Received Urine Clean Catch Pending Physical Examination HEENT: Normocephalic; atraumatic CHEST: Resp shallow, mildly labored, crackles, diminished bases 6L via n/c CARDIAC: RRR. ABDOMEN: Soft, nondistended, nontender; massive hepatomegaly; bowel sounds are present in all four quadrants. EXTREMITIES: No clubbing, cyanosis, or edema. SKIN: Generalized pallor AGRICULT[employer] SYSTEMS SPECIALIST: Lethargic, oriented to self only. (Sofi Tapia) Assessment and Plan Plan ASSESSMENT: - Severe anemia. Pt was brought from a local nursing facility for evaluation of epistaxis with anemia. Her nosebleed resolved on its own without intervention. She was noted to have a H/H of 6.3/18.8 on admission. She was transfused 2 units PRBC and her repeat H/H has remained stable at 8.9/26.3. Per records, she had a colonoscopy in 1994. There is no signs of active bleeding. She is not stable for procedures at this time secondary to CHF/respiratory status and there is also some concern of metastatic cancer. Will get CT abdomen and pelvis prior to considering any GI workup with egd/ colonoscopy. - Massive hepatomegaly. Pt was noted to have massive hepatomegaly on exam. She cannot tell me if there is any history of liver disease. I called her son and he reports that at one point, there was some concern for liver cancer, but that "everything turned out okay." Review of records show that she had multiple liver masses in 2016. S/P liver biopsy in March of 2016 which revealed metastatic poorly differentiated carcinoma consistent with breast primary in needle core biopsy of fibrotic liver. - Elevated LFTs. T. Bili 0.6, AST 115, ALT 35, Alk Phosph 245. Likely related to above. Will get AFP, CEA, Ca19-9, but hold on further liver workup until results of CT scan. - Epistaxis. Resolved without intervention. No further episodes. - Fluid overload, pulmonary infiltrates, hypoxia. On O2 6L via n/c. CXR with new bilateral pulmonary infiltrates most characteristic of pulmonary edema, s/p lasix yesterday- pt still with crackles. Nurse reports she went from R/A to O2 6L via n/c. Attending notified. - JOHN, improved. Creat 1.16. - Metastatic breast cancer with disease to the liver and lung. Dx with breast cancer in 2015. The last note by oncology in the EMR was with Dr. Ceron in November of 2016---> she was noted to have progression of the liver and lung while on Doxil and was on Halaven at that time. At that time, she wanted to continue treatment, but was having a hard time emotionally and was referred to psychiatry at that time. It is unclear if she was seen by oncology after that appointment, as we do not have these records and the patient and son cannot tell me. - Dementia with delusional d/o, CAD, Hx Valvular heart dz (s/p avr), Hx CVA, DM , Gout, HTN per attending. PLAN: - Heart healthy puree diet with thin liquids (ST recommendations) - CT scan abdomen and pelvis with po contrast only - Protonix 40mg IV daily - Monitor HH - Transfuse as necessary - CBC, CMP in am - AFP, CEA, Ca19-9 - Notified attending of crackles, mildly labored breathing and requirement of 6L - new per nurse - Will await results of CT scan before considering any workup for anemia - Supportive care - Consider palliative care consult for clarification of goals, as it appears that patient has metastatic breast cancer and it is unclear if she has followed up with Dr. Ceron recently- Son Lev [phone]. - Pt seen and examined by Dr. Ngo and myself and this note is written on her behalf (Sofi Tapia) Physician Comments seen, examined agree with above ct abdomen/pelvis, ct chest reviewed consider palliative care/hospice consult if aggressive treatment requested by family -will need ent consult,egd/ colonoscopy (Vicky Ngo MD) Sofi Tapia Jun 15, 2017 10:16 Vicky Ngo MD Jun 15, 2017 15:15
[2017-06-15] MEDS ORDERED: PANTOPRAZOLE SODIUM 40 MG VIAL IV PUSH SCH (10:30)
--- NOTE | 2017-06-15 13:59 | RADRPT ---
EXAM DATE/TIME: 06/15/2017 13:18 [facility] COMPARISON: CHEST SINGLE AP, June 14, 2017, 0:01. INDICATIONS : Pulmonary disease. RADIATION DOSE: 5.27 CTDIvol (mGy) ; Combined studies - Thorax/Abdomen/Pelvis MEDICAL HISTORY : Cardiovascular disease. Diabetes mellitus type 2. Carcinoma, breast. SURGICAL HISTORY : Mastectomy, right. Appendectomy.Cholecystectomy. Pacemaker ENCOUNTER: Initial ACUITY: 1 day PAIN SCALE: 0/10 LOCATION: chest TECHNIQUE: Volumetric scanning of the chest was performed. Using automated exposure control and adjustment of t he mA and/or kV according to patient size, radiation dose was kept as low as reasonably achievable to obtain optimal diagnostic quality images. DICOM format image data is available electronically for r eview and comparison. Follow-up recommendations for incidentally detected pulmonary nodules are based at a minimum on nodul e size and patient risk factors according to Fleischner Society Guidelines. FINDINGS: There is respiratory motion artifact. LUNGS: There is bilateral air space consolidation involving both the upper and lower lung zones. Multiple no dules are visualized in the right middle lobe. There is also compressive atelectasis in the lower lob es and smooth septal thickening in the upper lobes. PLEURAE: There are small bilateral pleural effusions. MEDIASTINUM: There is a severe coronary artery calcification and moderate atherosclerotic disease of the aorta. Ao rtic valve replacement is present. There is calcification of mitral anulus. Left chest wall Infuse-a- Port is present with distal tip in the SVC. A mildly enlarged precarinal lymph node is present measur ing 12 mm in short axis diameter. There is also an enlarged AP window lymph node measuring 16 mm in s hort axis diameter. AXILLAE: Within normal limits. No lymphadenopathy. MUSCULOSKELETAL: There are degenerative changes of the thoracic spine and patient is post median sternotomy. MISCELLANEOUS: Please refer to abdomen and pelvis CT report for description of the subdiaphragmatic findings. Right breast is absent. CONCLUSION: 1. Bilateral air space consolidation involving both the upper and lower lobes. Multiple nodules are p resent the right middle lobe. Suggest followup to confirm resolution. 2. Small bilateral pleural effusions. 3. Mildly enlarged AP window and precarinal lymph nodes may be reactive secondary to the lung disease . Jd Alexander MD on June 15, 2017 at 13:45 Board Certified Radiologist. This report was verified electronically.
--- NOTE | 2017-06-15 14:04 | RADRPT ---
EXAM DATE/TIME: 06/15/2017 13:20 [facility] COMPARISON: CT ABDOMEN & PELVIS W CONTRAST, May 05, 2016, 10:12. INDICATIONS : Massive hepatomegaly with history of liver masses. ORAL CONTRAST: No oral contrast ingested. RADIATION DOSE: 5.27 CTDIvol (mGy) MEDICAL HISTORY : Carcinoma, breast. Cardiovascular disease Diabetes mellitus type 2. SURGICAL HISTORY : Mastectomy, right. Appendectomy.Cholecystectomy.Pacemaker. ENCOUNTER: Initial ACUITY: 1 day PAIN SCALE: 2/10 LOCATION: Abdomen TECHNIQUE: Volumetric scanning of the abdomen and pelvis was performed. Using automated exposure control and ad justment of the mA and/or kV according to patient size, radiation dose was kept as low as reasonably achievable to obtain optimal diagnostic quality images. DICOM format image data is available electro nically for review and comparison. FINDINGS: LOWER LUNGS: Please refer to chest CT report for description of the supradiaphragmatic findings. LIVER: The liver measures 25.4 cm and has a mildly lobulated contour with possible hypodense masses througho ut. There are clips in the gallbladder fossa. There is no dilation of the biliary tree. SPLEEN: Normal size without lesion. PANCREAS: No abnormalities identified. KIDNEYS: Normal in size and shape. There is no mass, stone, or hydronephrosis. ADRENAL GLANDS: Within normal limits. VASCULAR: There is no aortic aneurysm. There is severe atherosclerotic disease. BOWEL/MESENTERY: The stomach, small bowel, and colon demonstrate no acute abnormality. There is no free intraperitone al air. A small volume of free fluid is present in the pelvis. ABDOMINAL WALL: There is mild diffuse subcutaneous edema. RETROPERITONEUM: There is no lymphadenopathy. BLADDER: Urinary bladder is decompressed with Hopkins catheter present. REPRODUCTIVE: Not well visualized due to beam hardening artifact. INGUINAL: There is no lymphadenopathy or hernia. MUSCULOSKELETAL: There is degenerative changes of the lumbar spine with left hip arthroplasty. CONCLUSION: 1. Hepatomegaly. Liver has a nodular contour with possible hypodense masses. This appearance could be related to cirrhosis or a liver containing innumerable masses. The liver has significantly increased in size from the prior study. 2. Trace free fluid in the pelvis. 3. Severe atherosclerotic disease. Jd Alexander MD on June 15, 2017 at 13:57 Board Certified Radiologist. This report was verified electronically.
--- NOTE | 2017-06-15 17:10 | PD.CONS ---
Consult Service Palliative Care Consult Requested By Dr. Velazco. Primary Care Physician Jd Damon MD Reason for Consultation a. To assist with evaluation and management of symptoms including: Debility and shortness of breath. b. To assist medical decision maker(s) with: better understanding of current medical conditions; weighing benefits/burdens of medical treatment options; making medical treatment decisions. . HPI History of Present Illness Mrs. Hernandes is a 71 -year-old female with a medical history significant for metastatic breast cancer, delusional disorder, diabetes mellitus 2, CAD, CVA who was sent on 06/13/17 from [facility] for evaluation of anemia. Patient presented with outpatient laboratory data 06/08/17 showing hemoglobin of 6.5. Upon ED admission, laboratory workup revealing hemoglobin of 6.3, hematocrit 18.8. Patient was transfused 2 PRBC. Patient was admitted for further management. GI consulted on a 117 for evaluation of epistaxis with anemia. Epistaxis resolved without intervention. Chest CT dated 117 revealing bilateral airspace consolidation involving both lower lobes, multiple nodules in the right middle lobe and small bilateral pleural effusions. Abdominal/ pelvis CT 06/15/17 revealing hepatomegaly, liver with innumerable masses. Reviewed patient's past medical history. 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 Originally diagnosed in January,. Patient being followed by Dr. Ceron. Patient was found to have multiple liver masses in 2015 and subsequently underwent a liver biopsy in Mar, 2016 which revealed metastatic poorly differentiated carcinoma consistent with breast primary in needle core biopsy of fibrotic liver. Pulmonary nodules noted on CT on 02/19/16. Patient was receiving palliative chemotherapy with single agent Halaven, last oncology note dated November 24, 2016. During that consultation, patient was referred to psychiatry secondary to confusion and disorientation. Reviewed prior admissions, acute hospitalization on 12/11/16 secondary to altered mental status. Head CT 12/09/16 negative for acute process. Psychiatry was consulted on 12/09/16, patient was transfer to psychiatry floor for further management of psychosis, delirium secondary to underlying medical condition. Brain MRI 12/10/16 negative for acute process. Carotid artery ultrasound revealing mild bilateral plaquing with no evidence of stenosis. While in the psychiatric floor, patient was placed on olanzapine. Patient was subsequently discharged to [facility] on 01/11/17 for long-term care. It is unclear if patient followed up with oncology since discharge, last oncology note 11/24/16. Patient seen in oncology floor. Resting in bed in no acute distress. Obtunded , briefly opening eyes to verbal stimuli. Mumbling a few words. Unable to tell me her name. Increased work of breathing noted, patient currently on 6 L nasal cannula. Oxygen saturation in the low 90s. Bilateral soft wrist restraints, bedside RN reports that patient was pulling at her Hopkins catheter and nasal cannula. Patient afebrile, stable hemodynamically. Patient with acute on chronic kidney failure, BUN/creatinine 50/1.16 today. UA 7117 negative for nitrates or leukocytes. Urine culture with no growth in 24 hours. Lengthy telephone conversation with patient's son Lev. Obtained past medical and psychosocial history. Son tells me that he resides in [place], unclear at this time if he will be able to visit patient. He reports that he visited patient during her November to December psychiatric admission. Son was aware of breast cancer but was unaware of progression of illness with metastasis to liver and lung while undergoing chemotherapy. Son tells me that patient was very reserved and did not share much of her medical history with him. Discussed past acute hospitalization, and events leading to these acute hospitalization, clinical course and current medical management. Reviewed suspicious of slow GI bleed, GI consulted. Discuss patient's overall poor prognosis given her progressive metastatic disease, profound physical deconditioning since November 2016, GI bleed and ongoing multiple chronic comorbidities. Discussed continuation of conservative management short of no code given patient's known wishes vs transition patient to comfort-directed care with hospice. Son tells me that his father 4 months ago from colon cancer, father was under hospice services at time of . Son very receptive to hospice referral. Goal of therapy is to continue current conservative management short of no code and to allow 24 hours to evaluate patient's condition. Son likely to transition patient to comfort care with hospice given the above. Patient's PPS 30% at the time of my visit. Patient not likely a candidate to continue palliative chemotherapy given her current clinical condition/profound physical deconditioning and progression of metastatic disease. Case discussed with JOSSELIN Kaur and bedside RN. . Function/Cognitive Trajectory Patient residing independently prior to November 2016. One month psychiatric admission from 12/09/16 to 01/11/17. Patient was discharged in the [facility] for long-term care. Reported showed decline in physical conditioning. Requiring assistance with ADLs. Documented decline in cognitive abilities, worsen in November 2016. . Review of Systems ROS Limitations: Altered Mental Status Constitutional: COMPLAINS OF: Weight loss, DENIES: Fever Ears, nose, mouth, throat: COMPLAINS OF: Epistaxis, DENIES: Nasal discharge Respiratory: COMPLAINS OF: Shortness of breath Cardiovascular: COMPLAINS OF: Dyspnea on Exertion, DENIES: Lower Extremity Edema Gastrointestinal: DENIES: Vomiting Musculoskeletal: DENIES: Joint Swelling Integumentary: DENIES: Abnormal pigmentation, Rash Immunologic/Allergic: DENIES: Eczema Neurologic: DENIES: Seizures Psychiatric: COMPLAINS OF: Anxiety, Confusion Other ROS: Limited ROS secondary to patient's clinical condition, obtunded. ROS obtained from medical records and clinical observation. . Past Family Social History Coded Allergies: No Known Allergies (Verified , 06/13/17) Past Medical History CAD status post OR -stent placement Arthritis Dementia Delusional disorder Metastatic breast cancer with disease to the liver and lung History of stroke Diabetes mellitus GERD Glaucoma Gout Valvular heart disease, s/p AVR Hemorrhoids HTN Pacemaker . Past Surgical History CABG Hysterectomy Left hip surgery Appendectomy Carpal tunnel surgery bilateral wrist Cholecystectomy Infusaport Nasal surgery Thyroidectomy Tonsillectomy Mastectomy PPM placement Colonoscopy 1994 AVR . Reported Medications Glucophage (Metformin HCl) 500 Mg Tab 1,000 Mg PO 2 PO BID Aspirin EC (Aspirin) 81 Mg Tabdr 81 Mg PO DAILY Olanzapine 10 Mg Tab 10 Mg PO BID Cipro (Ciprofloxacin HCl) 250 Mg Tab 250 Mg PO BID 5 Days Lisinopril 20 Mg Tab 20 Mg PO DAILY . Current Medications Medications (Trade) Dose Ordered Sig/Shay Route Start Time Stop Time Status Last Admin (NS Flush) 2 ml UNSCH PRN IV FLUSH 06/13/17 11:15 (NS Flush) 2 ml BID IV FLUSH 06/13/17 21:00 06/15/17 09:12 (Tylenol) 650 mg Q4H PRN PO 06/13/17 11:15 (Zofran Inj) 4 mg Q6H PRN IVP 06/13/17 11:15 (Narcan Inj) 0.4 mg UNSCH PRN IV 06/13/17 11:15 (Dorothy-Colace) 1 tab BID PO 06/13/17 21:00 06/15/17 09:11 (Milk Of Magnesia Liq) 30 ml Q12H PRN PO 06/13/17 11:15 (Senokot) 17.2 mg Q12H PRN PO 06/13/17 11:15 (Dulcolax Supp) 10 mg DAILY PRN RECTAL 06/13/17 11:15 Lactulose 30 ml 30 ml DAILY PRN PO 06/13/17 11:15 (NS 1000 ml Inj) 1,000 ml @ 42 mls/hr [id number] IV 06/13/17 13:00 Hold 06/13/17 23:19 (D50w (Vial) Inj) 50 ml UNSCH PRN IV 06/13/17 13:00 (Glucagon Inj) 1 mg UNSCH PRN OTHER 06/13/17 13:00 (Protonix) 40 mg Q12HR PO 06/14/17 21:30 06/15/17 09:11 (Levemir Inj) 5 units HS SQ 06/14/17 21:45 06/14/17 22:51 (Lasix Inj) 20 mg BID@09,18 IV PUSH 06/15/17 18:00 Family History Unable to obtain secondary to patient's clinical condition, obtunded. Patient has one son who is alive and well. . Substance Use Tobacco: Son denies. Patient residing a long-term facility prior to these hospitalization. Alcohol: Son denies. Patient residing a long-term facility prior to these hospitalization. Prescription med abuse: Son denies. Patient residing a long-term facility prior to these hospitalization. Illicits: Son denies. Patient residing a long-term facility prior to these hospitalization. . Psychosocial History Patient born and raised in [place] , has 1 son who resides in [place]. Patient lived independently prior to November 2016, resident of a long -term facility since December 2016. Highest level of education is 11th grade. . Spiritual/Cultural Factors Confucianism. . Health Care Surrogate(s): Patient's son does not note if AD completed. As per [place] law, proxy decision maker falls to patient's only son Lev. . Family/friends goals: DNR/DNI. Continue conservative management short of no code. Son considering hospice services at this time. . Ethical and Legal Issues Patient unable to participating in medical decision-making secondary to AMS. . Physical Exam Vital Signs Date Time Temp Pulse Resp B/P Pulse Ox O2 Delivery O2 Flow Rate FiO2 06/15/17 12:00 98.2 98 18 157/70 92 06/15/17 08:04 92 Nasal Cannula 6.00 06/15/17 08:00 98.3 87 18 147/72 93 06/15/17 04:00 97.5 89 18 162/76 93 06/15/17 04:00 80 06/15/17 00:00 96.1 89 18 150/70 93 06/15/17 00:00 81 06/14/17 21:54 93 Nasal Cannula 6.00 06/14/17 21:12 147/65 06/14/17 20:00 98.0 92 16 192/74 93 06/14/17 20:00 83 06/14/17 06/15/17 19:00 07:00 Intake Total 250 ml Output Total 275 ml 750 ml Balance -275 ml -500 ml Intake Oral 250 ml Output Urine Total 275 ml 750 ml # Bowel Movements 0 0 Exam CONSTITUTIONAL/GENERAL: This is an elderly, pale female in moderate distress secondary to increased work of breathing. TUBES/LINES/DRAINS: PIV's, Hopkins catheter, NC, bilateral soft wrist restraints. SKIN: Very pale. No jaundice, rashes, or lesions. Ecchymoses on upper extremities. No wounds seen anteriorly. Skin temperature appropriate. Not diaphoretic. HEAD: Atraumatic. Normocephalic. EYES: Pupils equal and round and reactive. No scleral icterus. No injection or drainage. Fundi not examined. ENT: Hearing appears normal. Nose without bleeding or purulent drainage. Moist oral mucosa. NECK: Trachea midline. Supple. CARDIOVASCULAR: Regular rate and rhythm. Peripheral pulses symmetric. RESPIRATORY/CHEST: Symmetric, increased work of breathing -mildly labored. Nasal cannula at 6 L. Mild inspiratory wheezes bilaterally. GASTROINTESTINAL: Abdomen distended, tender. Hepatomegaly. Bowel sounds present. GENITOURINARY: Without palpable bladder distension. Hopkins catheter in place. MUSCULOSKELETAL: Extremities without clubbing, cyanosis, or edema. NEUROLOGICAL: Obtunded, briefly opening eyes to voice. Mumbling a few words. Unable to tell me her name. PSYCHIATRIC: Calm. . Diagnostic Tests Laboratory Laboratory Tests Test 7/06/13/17 06/13/17 06/14/17 09:15 11:00 22:40 00:45 White Blood Count 7.5 TH/MM3 (4.0-11.0) Red Blood Count 2.01 MIL/MM3 (4.00-5.30) Hemoglobin 6.3 GM/DL 8.9 GM/DL (11.6-15.3) (11.6-15.3) Hematocrit 18.8 % 25.6 % (35.0-46.0) (35.0-46.0) Mean Corpuscular Volume 93.2 FL (80.0-100.0) Mean Corpuscular Hemoglobin 31.5 PG (27.0-34.0) Mean Corpuscular Hemoglobin 33.8 % Concent (32.0-36.0) Red Cell Distribution Width 15.3 % (11.6-17.2) Platelet Count 107 TH/MM3 (150-450) Mean Platelet Volume 10.8 FL (7.0-11.0) Neutrophils (%) (Auto) 74.2 % (16.0-70.0) Lymphocytes (%) (Auto) 15.2 % (9.0-44.0) Monocytes (%) (Auto) 8.9 % (0.0-8.0) Eosinophils (%) (Auto) 1.0 % (0.0-4.0) Basophils (%) (Auto) 0.7 % (0.0-2.0) Neutrophils # (Auto) 5.6 TH/MM3 (1.8-7.7) Lymphocytes # (Auto) 1.1 TH/MM3 (1.0-4.8) Monocytes # (Auto) 0.7 TH/MM3 (0-0.9) Eosinophils # (Auto) 0.1 TH/MM3 (0-0.4) Basophils # (Auto) 0.1 TH/MM3 (0-0.2) CBC Comment DIFF FINAL Differential Comment Prothrombin Time 13.5 SEC (9.8-11.6) Prothromb Time International 1.2 RATIO Ratio Activated Partial 29.5 SEC Thromboplast Time (24.3-30.1) Sodium Level 140 MEQ/L 143 MEQ/L (136-145) (136-145) Potassium Level 6.1 MEQ/L 5.4 MEQ/L (3.5-5.1) (3.5-5.1) Chloride Level 112 MEQ/L 112 MEQ/L (98-107) (98-107) Carbon Dioxide Level 16.1 MEQ/L 19.7 MEQ/L (21.0-32.0) (21.0-32.0) Anion Gap 12 MEQ/L (5-15) 11 MEQ/L (5-15) Blood Urea Nitrogen 51 MG/DL (7-18) 51 MG/DL (7-18) Creatinine 1.93 MG/DL 1.81 MG/DL (0.50-1.00) (0.50-1.00) Estimat Glomerular Filtration 26 ML/MIN (>89) 27 ML/MIN (>89) Rate Random Glucose 174 MG/DL 192 MG/DL (74-106) (74-106) Calcium Level 9.0 MG/DL 8.9 MG/DL (8.5-10.1) (8.5-10.1) Total Bilirubin 0.6 MG/DL (0.2-1.0) Aspartate Amino Transf 115 U/L (15-37) (AST/SGOT) Alanine Aminotransferase 35 U/L (10-53) (ALT/SGPT) Alkaline Phosphatase 245 U/L (45-117) Total Protein 7.0 GM/DL (6.4-8.2) Albumin 3.4 GM/DL (3.4-5.0) Blood Type A POSITIVE Antibody Screen NEGATIVE Crossmatch Leukocyte-Reduced Red Blood Cells Blood Bank Comment Urine Color YELLOW (YELLW/STRAW) Urine Turbidity HAZY (CLEAR) Urine pH 5.0 (5.0-8.5) Urine Specific Buhler 1.019 (1.002-1.035) Urine Protein 100 mg/dL (NEG-TRACE) Urine Glucose (UA) NEG mg/dL (NEG) Urine Ketones NEG mg/dL (NEG) Urine Occult Blood NEG (NEG) Urine Nitrite NEG (NEG) Urine Bilirubin NEG (NEG) Urine Urobilinogen LESS THAN 2.0 MG/DL (LESS THAN 2.0) Urine Leukocyte Esterase NEG (NEG) Urine RBC LESS THAN 1 /hpf (0-3) Urine WBC 1 /hpf (0-5) Urine Amorphous Sediment RARE Urine Bacteria MOD /hpf (NONE) Urine Hyaline Casts 90 /lpf (RARE) Urine Mucus FEW /lpf (OCC) Microscopic Urinalysis Comment CULTURE INDICATED Test 06/14/17 06/14/17 06/15/17 06/15/17 05:10 23:30 04:40 12:30 White Blood Count 9.3 TH/MM3 (4.0-11.0) Red Blood Count 2.56 MIL/MM3 (4.00-5.30) Hemoglobin 8.1 GM/DL 8.9 GM/DL (11.6-15.3) (11.6-15.3) Hematocrit 23.3 % 26.3 % (35.0-46.0) (35.0-46.0) Mean Corpuscular Volume 91.0 FL (80.0-100.0) Mean Corpuscular Hemoglobin 31.8 PG (27.0-34.0) Mean Corpuscular Hemoglobin 34.9 % Concent (32.0-36.0) Red Cell Distribution Width 14.8 % (11.6-17.2) Platelet Count 107 TH/MM3 (150-450) Mean Platelet Volume 10.8 FL (7.0-11.0) Neutrophils (%) (Auto) 76.0 % (16.0-70.0) Lymphocytes (%) (Auto) 13.4 % (9.0-44.0) Monocytes (%) (Auto) 9.9 % (0.0-8.0) Eosinophils (%) (Auto) 0.4 % (0.0-4.0) Basophils (%) (Auto) 0.3 % (0.0-2.0) Neutrophils # (Auto) 7.1 TH/MM3 (1.8-7.7) Lymphocytes # (Auto) 1.3 TH/MM3 (1.0-4.8) Monocytes # (Auto) 0.9 TH/MM3 (0-0.9) Eosinophils # (Auto) 0.0 TH/MM3 (0-0.4) Basophils # (Auto) 0.0 TH/MM3 (0-0.2) CBC Comment DIFF FINAL Differential Comment Sodium Level 145 MEQ/L 145 MEQ/L (136-145) (136-145) Potassium Level 5.2 MEQ/L 4.6 MEQ/L (3.5-5.1) (3.5-5.1) Chloride Level 112 MEQ/L 113 MEQ/L (98-107) (98-107) Carbon Dioxide Level 19.7 MEQ/L 21.1 MEQ/L (21.0-32.0) (21.0-32.0) Anion Gap 13 MEQ/L (5-15) 11 MEQ/L (5-15) Blood Urea Nitrogen 53 MG/DL (7-18) 54 MG/DL (7-18) Creatinine 1.58 MG/DL 1.16 MG/DL (0.50-1.00) (0.50-1.00) Estimat Glomerular Filtration 32 ML/MIN (>89) 46 ML/MIN (>89) Rate Random Glucose 191 MG/DL 176 MG/DL (74-106) (74-106) Calcium Level 8.8 MG/DL 8.9 MG/DL (8.5-10.1) (8.5-10.1) Tumor Marker Alpha Fetoprotein 5.3 NG/ML (0.5-8.0) Carcinoembryonic Antigen 7.6 NG/ML (0.2-5.0) CA 19-9 Antigen 138.1 U/ML (0.0-35.0) Result Diagram: 06/14/17 2330 06/15/17 0440 Microbiology Microbiology Date/Time Procedure Status Source Growth 06/14/17 00:45 Urine Culture - Preliminary Resulted Urine Clean Catch NO GROWTH IN 24 HOURS. Imaging Last Impressions Chest CT 06/15/17 0000 Signed Impressions: Service Date/Time: Thursday, June 15, 2017 13:18 - CONCLUSION: 1. Bilateral air space consolidation involving both the upper and lower lobes. Multiple nodules are present the right middle lobe. Suggest followup to confirm resolution. 2. Small bilateral pleural effusions. 3. Mildly enlarged AP window and precarinal lymph nodes may be reactive secondary to the lung disease. Jd Alexander MD Abdomen/Pelvis CT 06/15/17 0000 Signed Impressions: Service Date/Time: Thursday, June 15, 2017 13:20 - CONCLUSION: 1. Hepatomegaly. Liver has a nodular contour with possible hypodense masses. This appearance could be related to cirrhosis or a liver containing innumerable masses. The liver has significantly increased in size from the prior study. 2. Trace free fluid in the pelvis. 3. Severe atherosclerotic disease. Jd Alexander MD Chest X-Ray 06/14/17 0000 Signed Impressions: Service Date/Time: Wednesday, June 14, 2017 00:01 - CONCLUSION: New bilateral pulmonary infiltrates most characteristic of pulmonary edema. This may be cardiogenic or noncardiogenic in origin. Deepak Martin MD Patient/Family Conference Present at Family Conference: Benjamin Dockery. Family Conference Time (mins): 38 Family Conference Location: Telephone Issues Discussed: * Palliative care role, purpose, approach * Additional medical, psychosocial, and spiritual history * Patients general health, functional status, and cognitive changes in the months leading up to the current hospitalization * family understanding of the current medical problems -progressive metastatic breast cancer, profound physical deconditioning, multiple ongoing chronic comorbidities, GI bleed, acute kidney injury, respiratory distress. Current PPS 30%. * Patient/family understanding of prognosis -poor given the above. * Patients goals of care as best understood from advance directives and/or conversations and/or values * Current medical treatment options and benefits/burdens of those options * Likely scenarios comparing ongoing aggressive care with a transition to comfort measures only * Questions answered to the best of my ability * Palliative care contact information provided * Hospice philosophy and benefits . Assessment and Plan Disease Oriented Problem List: (1) Respiratory distress (2) Anemia (3) JOHN (acute kidney injury) (4) Metastatic breast cancer (5) Hepatomegaly (6) Altered mental status Symptom Scale: (1) Shortness of breath 0-10 Scale: Unable to quantify Comment: Multifactorial, secondary to anemia, fluid overload, pulmonary infiltrates. Currently on 6 L nasal cannula. (2) Debility 0-10 Scale: Unable to quantify Comment: Progressive. Worsen since November 2016. Patient resident of long- term facility since December 2016. Pertinent Non-Medical Issues Psychosocial: Patient born and raised in [facility]. , has 1 son who resides in [place]. Patient lived independently prior to November 2016, resident of a long-term facility since December 2016 Spiritual: Confucianism alcides. Legal: Unknown if AD completed. Ethical issues impacting care: Patient unable to participate in medical decision -making. Benjamin Ohara acting as HCP. . Important Contacts Benjamin Dockery . . Prognosis Mrs. Hernandes is a 71 -year-old female with a medical history significant for metastatic breast cancer, delusional disorder, diabetes mellitus 2, CAD, CVA who was sent on 06/13/17 from [facility] for evaluation of anemia. Patient with progression of metastatic breast cancer, involvement to right lung and liver. Patient with progressive physical and cognitive decline, resident of long-term facility since December 2016. Overall prognosis is poor given her progression of metastatic disease, profound physical deconditioning since November 2016, GI bleed and ongoing multiple chronic comorbidities. Patient currently with PPS of 30%, respiratory distress requiring 6 L O2 via nasal cannula. Patient at high risk for further complications, continue decline and . Patient appears appropriate for hospice services given the above. Life expectancy of days to weeks if illness run its natural course. . Code Status: No Code Plan * CODE STATUS: DNR/DNI. Community DNR signed by patient on 01/11/17 in chart. * HEALTHCARE DECISION-MAKING: Patient unable to participate in medical decision- making, AMS. Patient's son does not know if advance directives completed. As per [place] law, proxy decision maker falls to patient's only son Lev Dockery. * GOALS OF CARE: Patient's only son Lev electing to continue conservative management short of NO code, will evaluate patient's clinical condition tomorrow afternoon. Son likely to transition patient to comfort-directed care with hospice should her clinical condition does not improve, continues to decline or additional complications. Patient with progressive metastatic disease while on palliative chemotherapy, multiple ongoing chronic comorbidities , documented physical and cognitive decline/profound physical deconditioning and acute complications -GI bleed, acute kidney injury, worsening respiratory condition -current PPS 30%. Palliative care to follow-up with son via telephone on 06/16/17 at 15:00. * SYMPTOMS: = Shortness of breath, Multifactorial, secondary to anemia, fluid overload, pulmonary infiltrates. Currently on 6 L nasal cannula. = Debility, Progressive. Worsen since November 2016. Patient resident of [facility] since December 2016. * Case discussed with Royce SMITH and bedside RN. * Palliative care contact information has been provided to patient's son. * Palliative care will continue to follow-up for further clarifications of goals of care as patient's clinical course continues to evolve. . Time Spent Total Floor Time (mins): 82 (Total time to include review and summarization of available medical records to include prior acute hospitalizations and oncology visits, physical exam, lengthy telephone conversation with son to discuss goals of care, case discussion with LUIS Tapia and bedside RN.) >50% Counseling/Coord of Care: Yes Thank you for the opportunity to participate in the care of Ms. Corbin. Attestation To help prompt me to consider important information that might be impacting today's encounter and assessment, information from prior notes written by myself or my colleagues may have been "brought forward" into today's note. My signature on this note, however, is an attestation that I personally performed the exam, history, and/or decision-making noted today, and, unless otherwise indicated, the interactions with patient, family, and staff as well as the review of records all occurred today. I also attest that the listed assessment and stated plan reflect my best clinical judgment today based on the combination of historical information, prior notes, and today's exam/ interactions. When time spent is documented, it refers only to time spent today by the signer, or if indicated, combined time spent today by collaborating physician/nurse practitioner. Wendy Chamorro Jun 15, 2017 17:10
[2017-06-15] MEDS: FUROSEMIDE 20 MG/2 ML VIAL IV PUSH SCH (17:28)
[2017-06-15] MEDS: INSULIN DETEMIR 100 UNITS/ML VIAL SQ SCH (21:42)
--- NOTE | 2017-06-15 23:11 | HHI.PR ---
Subjective Remarks Follow up for anemia, acute on chronic kidney injury, history of metastatic breast cancer. Patient is resting well. Wakes up on verbal commands and answers some questions. Has been agitated and currently requiring wrist restraints. Objective Vitals Vital Signs Date Time Temp Pulse Resp B/P Pulse Ox O2 Delivery O2 Flow Rate FiO2 06/15/17 20:00 97.1 87 18 154/68 94 06/15/17 17:05 94 Nasal Cannula 6.00 06/15/17 16:00 97.2 98 18 129/58 94 06/15/17 12:00 98.2 98 18 157/70 92 06/15/17 08:04 92 Nasal Cannula 6.00 06/15/17 08:00 98.3 87 18 147/72 93 06/15/17 04:00 97.5 89 18 162/76 93 06/15/17 04:00 80 06/15/17 00:00 96.1 89 18 150/70 93 06/15/17 00:00 81 I/O 06/14/17 06/14/17 06/14/17 06/15/17 06/15/17 06/15/17 07:00 15:00 23:00 07:00 15:00 23:00 Intake Total 250 ml 240 ml Output Total 600 ml 275 ml 750 ml 800 ml Balance -600 ml -275 ml -500 ml -560 ml Intake Oral 250 ml 240 ml Output Urine Total 600 ml 275 ml 750 ml 800 ml # Bowel Movements 0 0 Result Diagram: 06/14/17 2330 06/15/17 0440 Imaging Last Impressions Chest CT 06/15/17 0000 Signed Impressions: Service Date/Time: Thursday, June 15, 2017 13:18 - CONCLUSION: 1. Bilateral air space consolidation involving both the upper and lower lobes. Multiple nodules are present the right middle lobe. Suggest followup to confirm resolution. 2. Small bilateral pleural effusions. 3. Mildly enlarged AP window and precarinal lymph nodes may be reactive secondary to the lung disease. Jd Alexander MD Abdomen/Pelvis CT 06/15/17 0000 Signed Impressions: Service Date/Time: Thursday, June 15, 2017 13:20 - CONCLUSION: 1. Hepatomegaly. Liver has a nodular contour with possible hypodense masses. This appearance could be related to cirrhosis or a liver containing innumerable masses. The liver has significantly increased in size from the prior study. 2. Trace free fluid in the pelvis. 3. Severe atherosclerotic disease. Jd Alexander MD Chest X-Ray 06/14/17 0000 Signed Impressions: Service Date/Time: Wednesday, June 14, 2017 00:01 - CONCLUSION: New bilateral pulmonary infiltrates most characteristic of pulmonary edema. This may be cardiogenic or noncardiogenic in origin. Deepak Martin MD Objective Remarks GENERAL: Alert, NAD. SKIN: Warm and dry. HEAD: Normocephalic. EYES: No scleral icterus. No injection or drainage. NECK: Supple, trachea midline. No JVD or lymphadenopathy. CARDIOVASCULAR: Regular rate and rhythm without murmurs, gallops, or rubs. RESPIRATORY: Breath sounds equal bilaterally. No accessory muscle use. GASTROINTESTINAL: Abdomen soft, non-tender, nondistended. MUSCULOSKELETAL: No cyanosis, or edema. BACK: Nontender without obvious deformity. No CVA tenderness. Procedures None. A/P Problem List: (1) Symptomatic anemia ICD Code: D64.9 Status: Acute (2) JOHN (acute kidney injury) ICD Code: N17.9 Status: Acute (3) Hyperkalemia ICD Code: E87.5 Status: Acute (4) Diabetes ICD Code: E11.9 Status: Chronic Assessment and Plan 71-year-old female with past medical history of delusional disorder, breast cancer, DM, CAD, CVA who was sent from SNF for nosebleed and anemia Acute on Chronic anemia Patient with nosebleed, spontaneously resolved. Hemoglobin on admission 6.3. Hemoglobin as outpatient 5 days ago was 6.4. Hemoglobin previously 12.0 on 12/09/16. Aspirin discontinued. Hemoccult negative. Transfused 2 units PRBCs. M - Hemoglobin 6.3 --> 8.9 --> 8.1 --> 8.9. - Consulted GI. Appreciate GI input. At this point, H&H stable. No overt GI bleed. May not need any endoscopic study. - Continue Protonix 40mg Q12hrs. Probable bilateral pneumonia Bilateral pleural effusion History of metastatic right breast cancer, triple negative. - Per Oncology note from Dec 2016, patient was on palliative care. - CT chest images reviewed by me, shows extensive infiltrates and pleural effusion bilaterally. - Will start patient on Vancomycin and Zosyn. - Lasix 20mg IV BID - CBC, CMP, lactic acid in the AM. Acute kidney injury Hyperkalemia - Creatinine improved from 1.93 --> 1.16 on 06/15/2017. - Patient received multiple potassium lowering medications including insulin , Albuterol, Kayexalate, Lasix - Currently corrected. K+ 4.6. Acute encephalopathy: Likely metabolic secondary to the above on top of chronic dementia. Appears to be improved. Hold Zyprexa. - UA shows WBC 1. No evidence of UTI. - Speech evaluated - recommends pureed food with thin liquid. Diabetes mellitus - Continue Levemir 10 units QHS and continue Sliding scale insulin. DNR. SCDs. Candice Velazco DO Jun 15, 2017 23:11
[2017-06-15] MEDS ORDERED: VANCOMYCIN INJ 1,050 MG in SODIUM CHLOR 0.9% 250 ML INJ 250 ML IV ONE (23:30)
[2017-06-15] MEDS ORDERED: Vancomycin Consult Pharmacy 1 EA OTHER SCH (23:30)
[2017-06-15] MEDS ORDERED: VANCOMYCIN 1,000 MG/NS 250 ML IV STA ×2 (23:35)
[2017-06-15] MEDS: PIPERACIL-TAZO 4.5 GM PREMIX 100 ML IV SCH (23:53)
[2017-06-16] VITALS (8 sets, daily range): BP systolic 133–175; BP diastolic 67–77; PULSE 75–99; RESP 18–20; TEMP 96.2–97.8; O2SAT 92–97
[2017-06-16] MEDS ORDERED: VANCOMYCIN INJ 2,000 MG in SODIUM CHLORID 0.9% 500 ML INJ 500 ML IV ONE (01:00)
[2017-06-16] MEDS: INSULIN ASPART SUPPLEMENTAL SCALE SQ SCH ×4 (06:09→22:58)
[2017-06-16 06:16] LABS: AUTOMATED NEUTROPHIL # 8.5 TH/MM3 (1.8-7.7); BASOPHIL % 0.4 % (0.0-2.0); EOSINOPHIL # 0.1 TH/MM3 (0-0.4); EOSINOPHIL % 0.7 % (0.0-4.0); HEMATOCRIT 25.7 % (35.0-46.0); HEMO FLAGS DIFF FINAL; LYMPH % 11.6 % (9.0-44.0); LYMPHOCYTE # 1.3 TH/MM3 (1.0-4.8); MEAN CELL VOLUME 93.6 FL (80.0-100.0); MEAN CORPUSCULAR HEMOGLOBIN 30.9 PG (27.0-34.0); MONO % 10.3 % (0.0-8.0); PLATELET COUNT 129 TH/MM3 (150-450); RED BLOOD COUNT 2.74 MIL/MM3 (4.00-5.30); RED CELL DISTRIBUTION WIDTH 15.1 % (11.6-17.2); WHITE BLOOD COUNT 11.1 TH/MM3 (4.0-11.0)
[2017-06-16 06:36] LABS: ANION GAP 9 MEQ/L (5-15); BLOOD UREA NITROGEN 57 MG/DL (7-18); CHLORIDE 113 MEQ/L (98-107); GLOMERULAR FILTRATION RATE 43 ML/MIN (>89); POTASSIUM 4.4 MEQ/L (3.5-5.1); SODIUM (NA) 144 MEQ/L (136-145)
[2017-06-16 06:38] LABS: ALT (GPT) 38 U/L (10-53); AST (GOT) 144 U/L (15-37)
[2017-06-16 06:40] LABS: ALKALINE PHOSPHATASE 251 U/L (45-117); TOTAL BILIRUBIN ADULT 1.2 MG/DL (0.2-1.0)
--- NOTE | 2017-06-16 07:56 | HHI.PR ---
Subjective Remarks Follow up for anemia, JOHN in a patient with a history of stage IV breast cancer. Patient wakes up on verbal commands and denies any acute concerns. However, she does not say much. Objective Vitals Vital Signs Date Time Temp Pulse Resp B/P Pulse Ox O2 Delivery O2 Flow Rate FiO2 06/16/17 04:00 96.2 83 20 160/67 93 06/16/17 04:00 81 06/16/17 03:09 95 Nasal Cannula 6.00 06/16/17 00:00 96.6 88 20 175/75 93 06/16/17 00:00 92 06/15/17 20:00 87 06/15/17 20:00 97.1 87 18 154/68 94 06/15/17 17:05 94 Nasal Cannula 6.00 06/15/17 16:00 97.2 98 18 129/58 94 06/15/17 12:00 98.2 98 18 157/70 92 06/15/17 08:04 92 Nasal Cannula 6.00 06/15/17 08:00 98.3 87 18 147/72 93 I/O 06/15/17 06/15/17 06/15/17 06/16/17 06/16/17 06/16/17 07:00 15:00 23:00 07:00 15:00 23:00 Intake Total 250 ml 240 ml 150 ml 100 ml Output Total 750 ml 800 ml 300 ml 400 ml Balance -500 ml -560 ml -150 ml -300 ml Intake Oral 250 ml 240 ml 150 ml 100 ml Output Urine Total 750 ml 800 ml 300 ml 400 ml # Bowel Movements 0 0 0 Result Diagram: 06/16/17 0555 06/16/17 0555 Imaging Last Impressions Chest CT 06/15/17 0000 Signed Impressions: Service Date/Time: Thursday, June 15, 2017 13:18 - CONCLUSION: 1. Bilateral air space consolidation involving both the upper and lower lobes. Multiple nodules are present the right middle lobe. Suggest followup to confirm resolution. 2. Small bilateral pleural effusions. 3. Mildly enlarged AP window and precarinal lymph nodes may be reactive secondary to the lung disease. Jd Alexander MD Abdomen/Pelvis CT 06/15/17 0000 Signed Impressions: Service Date/Time: Thursday, June 15, 2017 13:20 - CONCLUSION: 1. Hepatomegaly. Liver has a nodular contour with possible hypodense masses. This appearance could be related to cirrhosis or a liver containing innumerable masses. The liver has significantly increased in size from the prior study. 2. Trace free fluid in the pelvis. 3. Severe atherosclerotic disease. Jd Alexander MD Chest X-Ray 06/14/17 0000 Signed Impressions: Service Date/Time: Wednesday, June 14, 2017 00:01 - CONCLUSION: New bilateral pulmonary infiltrates most characteristic of pulmonary edema. This may be cardiogenic or noncardiogenic in origin. Deepka Martin MD Objective Remarks GENERAL: Alert, NAD. SKIN: Warm and dry. HEAD: Normocephalic. EYES: No scleral icterus. No injection or drainage. NECK: Supple, trachea midline. No JVD or lymphadenopathy. CARDIOVASCULAR: Regular rate and rhythm without murmurs, gallops, or rubs. RESPIRATORY: Breath sounds equal bilaterally. No accessory muscle use. GASTROINTESTINAL: Abdomen soft, non-tender, nondistended. MUSCULOSKELETAL: No cyanosis, or edema. BACK: Nontender without obvious deformity. No CVA tenderness. Procedures None. A/P Problem List: (1) Symptomatic anemia ICD Code: D64.9 Status: Acute (2) JOHN (acute kidney injury) ICD Code: N17.9 Status: Acute (3) Hyperkalemia ICD Code: E87.5 Status: Acute (4) Diabetes ICD Code: E11.9 Status: Chronic Assessment and Plan 71-year-old female with past medical history of delusional disorder, breast cancer, DM, CAD, CVA who was sent from SNF for nosebleed and anemia Acute on Chronic anemia Patient with nosebleed, spontaneously resolved. Hemoglobin on admission 6.3. Hemoglobin as outpatient 5 days ago was 6.4. Hemoglobin previously 12.0 on 12/09/16. Aspirin discontinued. Hemoccult negative. Transfused 2 units PRBCs. M - Hemoglobin 6.3 --> 8.9 --> 8.1 --> 8.9. - Consulted GI. Appreciate GI input. At this point, H&H stable. No overt GI bleed. May not need any endoscopic study. - Continue Protonix 40mg Q12hrs. Probable bilateral pneumonia Bilateral pleural effusion History of metastatic right breast cancer, triple negative. - Per Oncology note from Dec 2016, patient was on palliative care. - CT chest images reviewed by me, shows extensive infiltrates and pleural effusion bilaterally. - Will start patient on Vancomycin and Zosyn. - Lasix 20mg IV BID - Lactic acid 1.1. CBC shows mild leukocytosis, Hgb 8.9 --> 8.5. - Will add DuoNeb breathing treatments. - Titrate O2 requirement to keep O2 sat > 90%. Acute kidney injury Hyperkalemia - Creatinine improved from 1.93 --> 1.16 --> 1.23 on 06/16/2017. - Patient received multiple potassium lowering medications including insulin , Albuterol, Kayexalate, Lasix - Currently corrected. K+ 4.4. Acute encephalopathy: Likely metabolic secondary to the above on top of chronic dementia. Appears to be improved. Hold Zyprexa. - UA shows WBC 1. No evidence of UTI. - Speech evaluated - recommends pureed food with thin liquid. Diabetes mellitus - Continue Levemir 10 units QHS and continue Sliding scale insulin. DNR. SCDs. Discussed with palliative care team. We will continue current treatment plan. If there is no significant improvement within 3-4 days, per son, hospice may be an option. Candice Velazco DO Jun 16, 2017 07:56
[2017-06-16] MEDS: PIPERACIL-TAZO 4.5 GM PREMIX 100 ML IV SCH ×2 (08:15→15:21)
[2017-06-16] MEDS: PANTOPRAZOLE SOD 40 MG DELAYED RELEASE TAB PO SCH ×2 (08:15→22:54)
[2017-06-16] MEDS: FUROSEMIDE 20 MG/2 ML VIAL IV PUSH SCH ×2 (08:16→17:06)
[2017-06-16] MEDS: SODIUM CHLORIDE 0.9% FLUSH 10 ML FLUSH IV FLUSH SCH ×2 (08:16→22:56)
[2017-06-16] MEDS: DOCUSATE SODIUM 50 MG/SENNA 8.6 MG TAB PO SCH ×2 (08:22→22:54)
[2017-06-16] MEDS: RESP: ALBUTEROL 2.5 MG/IPRATROPIUM 0.5 MG NEB (PRN) NEB (12:21)
--- NOTE | 2017-06-16 16:13 | HHI.GIFU ---
Subjective Remarks Pt sleeping, does not rouse to verbal or physical stimuli. Per RN she has had decreased LOC. (Tita Smith) Objective Vitals I&O Vital Signs Date Time Temp Pulse Resp B/P Pulse Ox O2 Delivery O2 Flow Rate FiO2 06/16/17 11:30 97.8 75 20 133/67 97 06/16/17 10:00 92 Nasal Cannula 6.00 06/16/17 07:50 96.6 79 20 147/67 93 06/16/17 04:00 96.2 83 20 160/67 93 06/16/17 04:00 81 06/16/17 03:09 95 Nasal Cannula 6.00 06/16/17 00:00 96.6 88 20 175/75 93 06/16/17 00:00 92 06/15/17 20:00 87 06/15/17 20:00 97.1 87 18 154/68 94 06/15/17 17:05 94 Nasal Cannula 6.00 I/O 06/15/17 06/15/17 06/15/17 06/16/17 06/16/17 06/16/17 07:00 15:00 23:00 07:00 15:00 23:00 Intake Total 250 ml 240 ml 150 ml 100 ml 113 ml Output Total 750 ml 800 ml 300 ml 400 ml Balance -500 ml -560 ml -150 ml -300 ml 113 ml Intake Oral 250 ml 240 ml 150 ml 100 ml IV Total 113 ml Output Urine Total 750 ml 800 ml 300 ml 400 ml # Bowel Movements 0 0 0 Laboratory Laboratory Tests Test 06/16/17 05:55 White Blood Count 11.1 Red Blood Count 2.74 Hemoglobin 8.5 Hematocrit 25.7 Mean Corpuscular Volume 93.6 Mean Corpuscular Hemoglobin 30.9 Mean Corpuscular Hemoglobin 33.0 Concent Red Cell Distribution Width 15.1 Platelet Count 129 Mean Platelet Volume 10.2 Neutrophils (%) (Auto) 77.0 Lymphocytes (%) (Auto) 11.6 Monocytes (%) (Auto) 10.3 Eosinophils (%) (Auto) 0.7 Basophils (%) (Auto) 0.4 Neutrophils # (Auto) 8.5 Lymphocytes # (Auto) 1.3 Monocytes # (Auto) 1.1 Eosinophils # (Auto) 0.1 Basophils # (Auto) 0.0 CBC Comment DIFF FINAL Differential Comment Sodium Level 144 Potassium Level 4.4 Chloride Level 113 Carbon Dioxide Level 22.0 Anion Gap 9 Blood Urea Nitrogen 57 Creatinine 1.23 Estimat Glomerular Filtration 43 Rate Random Glucose 177 Lactic Acid Level 1.1 Calcium Level 8.7 Total Bilirubin 1.2 Aspartate Amino Transf 144 (AST/SGOT) Alanine Aminotransferase 38 (ALT/SGPT) Alkaline Phosphatase 251 Total Protein 6.8 Albumin 3.0 Date/Time Procedure Status Source Growth 06/14/17 00:45 Urine Culture - Final Complete Urine Clean Catch NO GROWTH IN 48 HOURS. Imaging Last Impressions Chest CT 06/15/17 0000 Signed Impressions: Service Date/Time: Thursday, June 15, 2017 13:18 - CONCLUSION: 1. Bilateral air space consolidation involving both the upper and lower lobes. Multiple nodules are present the right middle lobe. Suggest followup to confirm resolution. 2. Small bilateral pleural effusions. 3. Mildly enlarged AP window and precarinal lymph nodes may be reactive secondary to the lung disease. Jd Alexander MD Abdomen/Pelvis CT 06/15/17 0000 Signed Impressions: Service Date/Time: Thursday, June 15, 2017 13:20 - CONCLUSION: 1. Hepatomegaly. Liver has a nodular contour with possible hypodense masses. This appearance could be related to cirrhosis or a liver containing innumerable masses. The liver has significantly increased in size from the prior study. 2. Trace free fluid in the pelvis. 3. Severe atherosclerotic disease. Jd Alexander MD Chest X-Ray 06/14/17 0000 Signed Impressions: Service Date/Time: Wednesday, June 14, 2017 00:01 - CONCLUSION: New bilateral pulmonary infiltrates most characteristic of pulmonary edema. This may be cardiogenic or noncardiogenic in origin. Deepak Martin MD Physical Exam HEENT: normocephalic; atraumatic; no jaundice. CHEST: wheezes CARDIAC: Regular rate and rhythm with no murmur gallop or rubs. ABDOMEN: Soft, nondistended, nontender; + hepatomegaly; bowel sounds are present in all four quadrants. EXTREMITIES: No clubbing, cyanosis, or edema. SKIN: Normal; no rash; no jaundice. GATE OPERATOR: somnolent/lethargic, does not rouse to verbal or gentle physical stimuli ( Tita Smith) Assessment and Plan Plan ASSESSMENT: - Severe anemia. Pt was brought from a local nursing facility for evaluation of epistaxis with anemia. Her nosebleed resolved on its own without intervention. She was noted to have a H/H of 6.3/18.8 on admission. She was transfused 2 units PRBC and her repeat H/H has remained stable. Per records, she had a colonoscopy in 1994. There is no signs of active bleeding. She is not stable for procedures at this time secondary to CHF/respiratory status and there is also some concern of metastatic cancer. CT 06-15-17--> increased hepatomegaly, poss masses- cirrhosis or innumerable masses - Massive hepatomegaly. Pt was noted to have massive hepatomegaly on exam. She cannot tell me if there is any history of liver disease. I called her son and he reports that at one point, there was some concern for liver cancer, but that "everything turned out okay." Review of records show that she had multiple liver masses in 2016. S/P liver biopsy in March of 2016 which revealed metastatic poorly differentiated carcinoma consistent with breast primary in needle core biopsy of fibrotic liver. - Elevated LFTs. Tbil increasing. Likely related to above. AFP 5.3, CEA 7.6H, CA 19-9 138.1H. - Epistaxis. Resolved without intervention. No further episodes. - Fluid overload, pulmonary infiltrates, hypoxia. On O2 6L via n/c. CXR with new bilateral pulmonary infiltrates most characteristic of pulmonary edema, s/p lasix yesterday- pt still with crackles. Nurse reports she went from R/A to O2 6L via n/c. Attending notified. - JOHN, improved. Creat 1.16. - Metastatic breast cancer with disease to the liver and lung. Dx with breast cancer in 2016. The last note by oncology in the EMR was with Dr. Ceron in November of 2016---> she was noted to have progression of the liver and lung while on Doxil and was on [place] at that time. At that time, she wanted to continue treatment, but was having a hard time emotionally and was referred to psychiatry at that time. It is unclear if she was seen by oncology after that appointment, as we do not have these records and the patient and son cannot tell me. Per palliative care, son opting for conservative mgmt and will reeval today - Dementia with delusional d/o, CAD, Hx Valvular heart dz (s/p avr), Hx CVA, DM , Gout, HTN per attending. PLAN: - await palliative care f/u, son to decide on hospice - Heart healthy puree diet with thin liquids (ST recommendations) - Protonix 40mg IV daily - Monitor HH - Transfuse as necessary - Supportive care - if aggressive treatment requested by family -will need ent consult,egd/ colonoscopy - Pt seen and examined by Dr. Ngo and myself and this note is written on her behalf (Tita Smith) Tita Smith Jun 16, 2017 16:13 Vicky Ngo MD Jun 16, 2017 16:50
--- NOTE | 2017-06-16 16:41 | HHI.HCPN ---
Reason for visit a. To assist with evaluation and management of symptoms including: Debility and shortness of breath. b. To assist medical decision maker(s) with: better understanding of current medical conditions; weighing benefits/burdens of medical treatment options; making medical treatment decisions. . Subjective/Interval History Mrs. Hernandes is a 71 -year-old female with a medical history significant for metastatic breast cancer, delusional disorder, diabetes mellitus 2, CAD, CVA who was sent on 06/13/17 from [facility] for evaluation of anemia, hgb 6.3. 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 Originally diagnosed in January,. Patient being followed by Dr. Ceron. Patient was found to have multiple liver masses in 2015 and subsequently underwent a liver biopsy in Mar, 2016 which revealed metastatic poorly differentiated carcinoma consistent with breast primary in needle core biopsy of fibrotic liver. Palliative care consulted for further clarifications of goals of care given progression of metastatic disease, multiple ongoing chronic comorbidities, profound physical deconditioning and acute events. Patient seen in oncology floor. Resting in bed in no acute distress. Eyes open , intermittently tracking. Mumbling a few words. Unable to tell me her name. Increased work of breathing noted, patient currently on 6 L nasal cannula. Oxygen saturation in the low 90s. Bilateral soft wrist restraints. Patient afebrile, stable hemodynamically. Patient with acute on chronic kidney failure , BUN/creatinine 57/1.23 today. Stable hemoglobin, 8.5 today from 8.9 yesterday. No signs of acute bleeding reported. Reviewed case with bedside RN Kelly, patient 100% of her breakfast. Did not eat lunch, she was very sleepy for a few hours around noon time, difficult to arouse. Follow-up telephone conversation with patient's son Lev. Medical update provided. Discussed that patient remains at a very high risk for further complications, continue decline and given her progressive metastatic disease, profound physical deconditioning -worsen since November 2016, suspected GI bleed, pneumonia and ongoing multiple chronic comorbidities. Discussed continuation of conservative management short of NO code given patient's known wishes vs transition patient to comfort-directed care with hospice. Son tells me that he is making arrangements to visit patient, hopefully over the weekend or early next week. Goal of therapy is to continue conservative management short of NO code and NO invasive procedures/interventions. Son would like to allow the weekend to see how patient's clinical condition continues to progress , he is very receptive to hospice services should patient's condition does not improve or continues to worsen. Case discussed with Dr. Velazco and bedside RN Kelly. . Family/friend interactions See interval note. . Advance Directives Advance Directive Specifics Health Care Surrogate(s): Patient's son does not note if AD completed. As per [place] law, proxy decision maker falls to patient's only son Lev. . Significant change in goals: No code. DNR/DNI. Continue conservative management short of no code and no invasive procedures/interventions. . Objective Vital Signs Date Time Temp Pulse Resp B/P Pulse Ox O2 Delivery O2 Flow Rate FiO2 06/16/17 11:30 97.8 75 20 133/67 97 06/16/17 10:00 92 Nasal Cannula 6.00 06/16/17 07:50 96.6 79 20 147/67 93 06/16/17 04:00 96.2 83 20 160/67 93 06/16/17 04:00 81 06/16/17 03:09 95 Nasal Cannula 6.00 06/16/17 00:00 96.6 88 20 175/75 93 06/16/17 00:00 92 06/15/17 20:00 87 06/15/17 20:00 97.1 87 18 154/68 94 06/15/17 17:05 94 Nasal Cannula 6.00 Intake & Output 06/16/17 06/16/17 07:00 19:00 Intake Total 250 ml 113 ml Output Total 700 ml Balance -450 ml 113 ml Intake Oral 250 ml IV Total 113 ml Output Urine Total 700 ml # Bowel Movements 0 Physical Exam CONSTITUTIONAL/GENERAL: This is an elderly, pale female in moderate distress secondary to increased work of breathing. TUBES/LINES/DRAINS: PIV's, left chest Mediport, Hopkins catheter, NC, bilateral soft wrist restraints. SKIN: Very pale. No jaundice, rashes, or lesions. Ecchymoses on upper extremities. No wounds seen anteriorly. Skin temperature appropriate. Not diaphoretic. HEAD: Atraumatic. Normocephalic. EYES: Pupils equal and round and reactive. icterus sclera. No injection or drainage. Fundi not examined. ENT: Hearing appears normal. Nose without bleeding or purulent drainage. Moist oral mucosa. NECK: Trachea midline. Supple. CARDIOVASCULAR: Regular rate and rhythm. Peripheral pulses symmetric. RESPIRATORY/CHEST: Symmetric, increased work of breathing -mildly labored. Nasal cannula at 6 L. Mild inspiratory wheezes bilaterally. GASTROINTESTINAL: Abdomen distended, tender. Hepatomegaly. Bowel sounds present. GENITOURINARY: Without palpable bladder distension. Hopkins catheter in place. MUSCULOSKELETAL: Extremities without clubbing, cyanosis, or edema. NEUROLOGICAL: briefly opening eyes to voice. Mumbling a few words. Unable to tell me her name. PSYCHIATRIC: Calm. . Diagnostic Tests Laboratory Laboratory Tests Test 06/13/17 06/14/17 06/14/17 06/14/17 22:40 00:45 05:10 23:30 Hemoglobin 8.9 GM/DL 8.1 GM/DL 8.9 GM/DL (11.6-15.3) (11.6-15.3) (11.6-15.3) Hematocrit 25.6 % 23.3 % 26.3 % (35.0-46.0) (35.0-46.0) (35.0-46.0) Sodium Level 143 MEQ/L 145 MEQ/L (136-145) (136-145) Potassium Level 5.4 MEQ/L 5.2 MEQ/L (3.5-5.1) (3.5-5.1) Chloride Level 112 MEQ/L 112 MEQ/L (98-107) (98-107) Carbon Dioxide Level 19.7 MEQ/L 19.7 MEQ/L (21.0-32.0) (21.0-32.0) Anion Gap 11 MEQ/L (5-15) 13 MEQ/L (5-15) Blood Urea Nitrogen 51 MG/DL (7-18) 53 MG/DL (7-18) Creatinine 1.81 MG/DL 1.58 MG/DL (0.50-1.00) (0.50-1.00) Estimat Glomerular Filtration 27 ML/MIN (>89) 32 ML/MIN (>89) Rate Random Glucose 192 MG/DL 191 MG/DL (74-106) (74-106) Calcium Level 8.9 MG/DL 8.8 MG/DL (8.5-10.1) (8.5-10.1) Urine Color YELLOW (YELLW/STRAW) Urine Turbidity HAZY (CLEAR) Urine pH 5.0 (5.0-8.5) Urine Specific Sherwood 1.019 (1.002-1.035) Urine Protein 100 mg/dL (NEG-TRACE) Urine Glucose (UA) NEG mg/dL (NEG) Urine Ketones NEG mg/dL (NEG) Urine Occult Blood NEG (NEG) Urine Nitrite NEG (NEG) Urine Bilirubin NEG (NEG) Urine Urobilinogen LESS THAN 2.0 MG/DL (LESS THAN 2.0) Urine Leukocyte Esterase NEG (NEG) Urine RBC LESS THAN 1 /hpf (0-3) Urine WBC 1 /hpf (0-5) Urine Amorphous Sediment RARE Urine Bacteria MOD /hpf (NONE) Urine Hyaline Casts 90 /lpf (RARE) Urine Mucus FEW /lpf (OCC) Microscopic Urinalysis Comment CULTURE INDICATED White Blood Count 9.3 TH/MM3 (4.0-11.0) Red Blood Count 2.56 MIL/MM3 (4.00-5.30) Mean Corpuscular Volume 91.0 FL (80.0-100.0) Mean Corpuscular Hemoglobin 31.8 PG (27.0-34.0) Mean Corpuscular Hemoglobin 34.9 % Concent (32.0-36.0) Red Cell Distribution Width 14.8 % (11.6-17.2) Platelet Count 107 TH/MM3 (150-450) Mean Platelet Volume 10.8 FL (7.0-11.0) Neutrophils (%) (Auto) 76.0 % (16.0-70.0) Lymphocytes (%) (Auto) 13.4 % (9.0-44.0) Monocytes (%) (Auto) 9.9 % (0.0-8.0) Eosinophils (%) (Auto) 0.4 % (0.0-4.0) Basophils (%) (Auto) 0.3 % (0.0-2.0) Neutrophils # (Auto) 7.1 TH/MM3 (1.8-7.7) Lymphocytes # (Auto) 1.3 TH/MM3 (1.0-4.8) Monocytes # (Auto) 0.9 TH/MM3 (0-0.9) Eosinophils # (Auto) 0.0 TH/MM3 (0-0.4) Basophils # (Auto) 0.0 TH/MM3 (0-0.2) CBC Comment DIFF FINAL Differential Comment Test 06/15/17 06/15/17 06/16/17 04:40 12:30 05:55 Sodium Level 145 MEQ/L 144 MEQ/L (136-145) (136-145) Potassium Level 4.6 MEQ/L 4.4 MEQ/L (3.5-5.1) (3.5-5.1) Chloride Level 113 MEQ/L 113 MEQ/L (98-107) (98-107) Carbon Dioxide Level 21.1 MEQ/L 22.0 MEQ/L (21.0-32.0) (21.0-32.0) Anion Gap 11 MEQ/L (5-15) 9 MEQ/L (5-15) Blood Urea Nitrogen 54 MG/DL (7-18) 57 MG/DL (7-18) Creatinine 1.16 MG/DL 1.23 MG/DL (0.50-1.00) (0.50-1.00) Estimat Glomerular Filtration 46 ML/MIN (>89) 43 ML/MIN (>89) Rate Random Glucose 176 MG/DL 177 MG/DL (74-106) (74-106) Calcium Level 8.9 MG/DL 8.7 MG/DL (8.5-10.1) (8.5-10.1) Tumor Marker Alpha Fetoprotein 5.3 NG/ML (0.5-8.0) Carcinoembryonic Antigen 7.6 NG/ML (0.2-5.0) CA 19-9 Antigen 138.1 U/ML (0.0-35.0) White Blood Count 11.1 TH/MM3 (4.0-11.0) Red Blood Count 2.74 MIL/MM3 (4.00-5.30) Hemoglobin 8.5 GM/DL (11.6-15.3) Hematocrit 25.7 % (35.0-46.0) Mean Corpuscular Volume 93.6 FL (80.0-100.0) Mean Corpuscular Hemoglobin 30.9 PG (27.0-34.0) Mean Corpuscular Hemoglobin 33.0 % Concent (32.0-36.0) Red Cell Distribution Width 15.1 % (11.6-17.2) Platelet Count 129 TH/MM3 (150-450) Mean Platelet Volume 10.2 FL (7.0-11.0) Neutrophils (%) (Auto) 77.0 % (16.0-70.0) Lymphocytes (%) (Auto) 11.6 % (9.0-44.0) Monocytes (%) (Auto) 10.3 % (0.0-8.0) Eosinophils (%) (Auto) 0.7 % (0.0-4.0) Basophils (%) (Auto) 0.4 % (0.0-2.0) Neutrophils # (Auto) 8.5 TH/MM3 (1.8-7.7) Lymphocytes # (Auto) 1.3 TH/MM3 (1.0-4.8) Monocytes # (Auto) 1.1 TH/MM3 (0-0.9) Eosinophils # (Auto) 0.1 TH/MM3 (0-0.4) Basophils # (Auto) 0.0 TH/MM3 (0-0.2) CBC Comment DIFF FINAL Differential Comment Lactic Acid Level 1.1 mmol/L (0.4-2.0) Total Bilirubin 1.2 MG/DL (0.2-1.0) Aspartate Amino Transf 144 U/L (15-37) (AST/SGOT) Alanine Aminotransferase 38 U/L (10-53) (ALT/SGPT) Alkaline Phosphatase 251 U/L (45-117) Total Protein 6.8 GM/DL (6.4-8.2) Albumin 3.0 GM/DL (3.4-5.0) Result Diagram: 06/16/17 0555 06/16/17 0555 Microbiology Microbiology Date/Time Procedure Status Source Growth 06/14/17 00:45 Urine Culture - Final Complete Urine Clean Catch NO GROWTH IN 48 HOURS. Imaging Last [address] 06/15/17 0000 Signed Impressions: Service Date/Time: Thursday, June 15, 2017 13:18 - CONCLUSION: 1. Bilateral air space consolidation involving both the upper and lower lobes. Multiple nodules are present the right middle lobe. Suggest followup to confirm resolution. 2. Small bilateral pleural effusions. 3. Mildly enlarged AP window and precarinal lymph nodes may be reactive secondary to the lung disease. Jd Alexander MD Abdomen/Pelvis CT 06/15/17 0000 Signed Impressions: Service Date/Time: Thursday, June 15, 2017 13:20 - CONCLUSION: 1. Hepatomegaly. Liver has a nodular contour with possible hypodense masses. This appearance could be related to cirrhosis or a liver containing innumerable masses. The liver has significantly increased in size from the prior study. 2. Trace free fluid in the pelvis. 3. Severe atherosclerotic disease. Jd Alexander MD Assessment and Plan Disease Oriented Problem List: (1) Respiratory distress (2) Anemia (3) JOHN (acute kidney injury) (4) Metastatic breast cancer (5) Hepatomegaly (6) Altered mental status Symptom Scale: (1) Shortness of breath 0-10 Scale: Unable to quantify Comment: Multifactorial, secondary to anemia, fluid overload, pulmonary infiltrates. Currently on 6 L nasal cannula. (2) Debility 0-10 Scale: Unable to quantify Comment: Progressive. Worsen since November 2016. Patient resident of long- term facility since December 2016. Pertinent Non-Medical Issues Psychosocial: Patient born and raised in [facility]. , has 1 son who resides in [place]. Patient lived independently prior to November 2016, resident of a long-term facility since December 2016 Spiritual: [employer] alcides. Legal: Unknown if AD completed. Ethical issues impacting care: Patient unable to participate in medical decision -making. Son Lev acting as HCP. . Important Contacts Benjamin Dockery . . Prognosis Mrs. Hernandes is a 71 -year-old female with a medical history significant for metastatic breast cancer, delusional disorder, diabetes mellitus 2, CAD, CVA who was sent on 06/13/17 from [facility] for evaluation of anemia. Patient with progression of metastatic breast cancer, involvement to right lung and liver. Patient with progressive physical and cognitive decline, resident of long-term facility since December 2016. Overall prognosis is poor given her progression of metastatic disease, profound physical deconditioning since November 2016, GI bleed and ongoing multiple chronic comorbidities. Patient currently with PPS of 30%, respiratory distress requiring 6 L O2 via nasal cannula. Patient at high risk for further complications, continue decline and . Patient appears appropriate for hospice services given the above. Life expectancy of days to weeks if illness run its natural course. . Code Status: No Code Plan * CODE STATUS: DNR/DNI. Community DNR signed by patient on 01/11/17 in chart. * HEALTHCARE DECISION-MAKING: Patient unable to participate in medical decision- making, AMS. Patient's son does not know if advance directives completed. As per [place] law, proxy decision maker falls to patient's only son Lev Dockery. * GOALS OF CARE: As per son Lev acting as HCP, goal of therapy is to continue with conservative management short of NO code and NO invasive procedures and/or interventions. Son would like to allow the weekend to see how patient's clinical condition continues to progress. Son is very receptive to hospice services should patient's condition does not improve or continues to worsen. * 06/16/17- Follow-up telephone conversation with patient's son Lev. Medical update provided. Discussed that patient remains at a very high risk for further complications, continue decline and given her progressive metastatic disease, profound physical deconditioning -worsen since November 2016, suspected GI bleed, pneumonia and ongoing multiple chronic comorbidities. Discussed continuation of conservative management short of NO code given patient's known wishes vs transition patient to comfort-directed care with hospice. Son tells me that he is making arrangements to visit patient, hopefully over the weekend or early next week. * SYMPTOMS: = Shortness of breath, Multifactorial, secondary to anemia, fluid overload, pulmonary infiltrates. Currently on 6 L nasal cannula. = Debility, Progressive. Worsen since November 2016. Patient resident of long-term facility since December 2016. * Case discussed with Dr. Velazco and bedside RN Kelly. * Palliative care contact information has been provided to patient's son. * Palliative care will continue to follow-up for further clarifications of goals of care as patient's clinical course continues to evolve. . Time Spent Total Floor Time (mins): 38 (Total time to include review medical records, physical exam, lengthy telephone conversation with patient's son to discuss goals of care, case discussion with Dr. Velazco and bedside RN Kelly.) >50% Counseling/Coord of Care: Yes Attestation To help prompt me to consider important information that might be impacting today's encounter and assessment, information from prior notes written by myself or my colleagues may have been "brought forward" into today's note. My signature on this note, however, is an attestation that I personally performed the exam, history, and/or decision-making noted today, and, unless otherwise indicated, the interactions with patient, family, and staff as well as the review of records all occurred today. I also attest that the listed assessment and stated plan reflect my best clinical judgment today based on the combination of historical information, prior notes, and today's exam/ interactions. When time spent is documented, it refers only to time spent today by the signer, or if indicated, combined time spent today by collaborating physician/nurse practitioner. Wendy Chamorro Jun 16, 2017 16:41
[2017-06-16] MEDS: INSULIN DETEMIR 100 UNITS/ML VIAL SQ SCH (22:57)
[2017-06-17] VITALS (9 sets, daily range): BP systolic 86–168; BP diastolic 52–73; PULSE 75–105; RESP 18–22; TEMP 96–97.8; O2SAT 92–97
[2017-06-17] MEDS: PIPERACIL-TAZO 4.5 GM PREMIX 100 ML IV SCH ×3 (01:13→17:21)
[2017-06-17] MEDS: VANCOMYCIN INJ 1,500 MG in SODIUM CHLORID 0.9% 500 ML INJ 500 ML IV SCH (06:00)
[2017-06-17] MEDS: INSULIN ASPART SUPPLEMENTAL SCALE SQ SCH ×4 (06:28→20:49)
[2017-06-17] MEDS: PANTOPRAZOLE SOD 40 MG DELAYED RELEASE TAB PO SCH ×2 (09:00→21:00)
[2017-06-17] MEDS: DOCUSATE SODIUM 50 MG/SENNA 8.6 MG TAB PO SCH ×2 (09:00→21:00)
[2017-06-17] MEDS: SODIUM CHLORIDE 0.9% FLUSH 10 ML FLUSH IV FLUSH SCH ×2 (09:16→22:46)
[2017-06-17] MEDS: FUROSEMIDE 20 MG/2 ML VIAL IV PUSH SCH ×2 (09:16→17:21)
--- NOTE | 2017-06-17 12:59 | HHI.PR ---
Subjective Remarks Follow up for anemia, JOHN in a patient with a history of stage IV breast cancer. Patient remains very sleepy. She wakes up on verbal commands and answers one or two questions. She denies any acute concerns. She remains on 6L of O2 via NC. Objective Vitals Vital Signs Date Time Temp Pulse Resp B/P Pulse Ox O2 Delivery O2 Flow Rate FiO2 06/17/17 12:00 97.8 82 22 141/62 95 06/17/17 11:38 Blow By 6.00 06/17/17 10:45 94 Nasal Cannula 6.00 06/17/17 07:50 96.3 77 20 162/70 93 06/17/17 04:00 97.2 80 18 155/67 97 06/17/17 03:12 93 Nasal Cannula 6.00 06/17/17 00:00 97.0 78 18 142/66 96 06/16/17 20:00 97.1 99 18 170/77 94 06/16/17 18:04 Nasal Cannula 6.00 06/16/17 15:30 96.7 83 20 156/67 94 I/O 06/16/17 06/16/17 06/16/17 06/17/17 06/17/17 06/17/17 07:00 15:00 23:00 07:00 15:00 23:00 Intake Total 100 ml 173 ml 150 ml Output Total 400 ml 400 ml 800 ml Balance -300 ml -227 ml -650 ml Intake Oral 100 ml 60 ml 150 ml IV Total 113 ml Output Urine Total 400 ml 400 ml 800 ml # Bowel Movements 0 0 0 Result Diagram: 06/16/17 0555 06/16/17 0555 Imaging Last Impressions Chest X-Ray 06/17/17 0000 Signed Impressions: Service Date/Time: June 13:19 - CONCLUSION: 1. Postoperative median sternotomy with aortic valve replacement. Mild edema pattern slightly improved. Probable trace pleural fluid. Jono Hess MD Chest CT 06/15/17 0000 Signed Impressions: Service Date/Time: Thursday, June 15, 2017 13:18 - CONCLUSION: 1. Bilateral air space consolidation involving both the upper and lower lobes. Multiple nodules are present the right middle lobe. Suggest followup to confirm resolution. 2. Small bilateral pleural effusions. 3. Mildly enlarged AP window and precarinal lymph nodes may be reactive secondary to the lung disease. Jd Alexander MD Abdomen/Pelvis CT 06/15/17 0000 Signed Impressions: Service Date/Time: Thursday, June 15, 2017 13:20 - CONCLUSION: 1. Hepatomegaly. Liver has a nodular contour with possible hypodense masses. This appearance could be related to cirrhosis or a liver containing innumerable masses. The liver has significantly increased in size from the prior study. 2. Trace free fluid in the pelvis. 3. Severe atherosclerotic disease. Jd Alexander MD Objective Remarks GENERAL: Alert, NAD. SKIN: Warm and dry. HEAD: Normocephalic. EYES: No scleral icterus. No injection or drainage. NECK: Supple, trachea midline. No JVD or lymphadenopathy. CARDIOVASCULAR: Regular rate and rhythm without murmurs, gallops, or rubs. RESPIRATORY: Breath sounds equal bilaterally. No accessory muscle use. GASTROINTESTINAL: Abdomen soft, non-tender, nondistended. MUSCULOSKELETAL: No cyanosis, or edema. BACK: Nontender without obvious deformity. No CVA tenderness. Procedures None. A/P Problem List: (1) Symptomatic anemia ICD Code: D64.9 Status: Acute (2) JOHN (acute kidney injury) ICD Code: N17.9 Status: Acute (3) Hyperkalemia ICD Code: E87.5 Status: Acute (4) Diabetes ICD Code: E11.9 Status: Chronic Assessment and Plan 71-year-old female with past medical history of delusional disorder, breast cancer, DM, CAD, CVA who was sent from SNF for nosebleed and anemia Acute on Chronic anemia Patient with nosebleed, spontaneously resolved. Hemoglobin on admission 6.3. Hemoglobin as outpatient 5 days ago was 6.4. Hemoglobin previously 12.0 on 12/09/16. Aspirin discontinued. Hemoccult negative. Transfused 2 units PRBCs. M - Hemoglobin 6.3 --> 8.9 --> 8.1 --> 8.9 --> 8.5. - Consulted GI. Appreciate GI input. At this point, H&H stable. No overt GI bleed. May not need any endoscopic study. - Continue Protonix 40mg Q12hrs. Probable bilateral pneumonia Bilateral pleural effusion History of metastatic right breast cancer, triple negative. - Per Oncology note from Dec 2016, patient was on palliative care. - CT chest images reviewed by me, shows extensive infiltrates and pleural effusion bilaterally. - Will start patient on Vancomycin and Zosyn. - Lasix 20mg IV BID - Lactic acid 1.1. CBC shows mild leukocytosis, Hgb 8.9 --> 8.5. - Will add DuoNeb breathing treatments. - Titrate O2 requirement to keep O2 sat > 90%. Acute kidney injury Hyperkalemia - Creatinine improved from 1.93 --> 1.16 --> 1.23 on 06/16/2017. - Patient received multiple potassium lowering medications including insulin , Albuterol, Kayexalate, Lasix - Currently corrected. K+ 4.4. Acute encephalopathy: Likely metabolic secondary to the above on top of chronic dementia. Appears to be improved. Hold Zyprexa. - UA shows WBC 1. No evidence of UTI. - Speech evaluated - recommends pureed food with thin liquid. Diabetes mellitus - Continue Levemir 10 units QHS and continue Sliding scale insulin. DNR. SCDs. Discussed with palliative care team. We will continue current treatment plan. If there is no significant improvement within 3-4 days, per son, hospice may be an option. Candice Velazco DO Jun 17, 2017 12:59
--- NOTE | 2017-06-17 14:14 | HHI.GIFU ---
Subjective Remarks Pt resting in bed, in no distress. Offers no complaint. (Tita Smith) Objective Vitals I&O Vital Signs Date Time Temp Pulse Resp B/P Pulse Ox O2 Delivery O2 Flow Rate FiO2 06/17/17 12:00 97.8 82 22 141/62 95 06/17/17 11:38 Blow By 6.00 06/17/17 11:30 97.0 82 20 168/73 95 06/17/17 10:45 94 Nasal Cannula 6.00 06/17/17 07:50 96.3 77 20 162/70 93 06/17/17 04:00 97.2 80 18 155/67 97 06/17/17 03:12 93 Nasal Cannula 6.00 06/17/17 00:00 97.0 78 18 142/66 96 06/16/17 20:00 97.1 99 18 170/77 94 06/16/17 18:04 Nasal Cannula 6.00 06/16/17 15:30 96.7 83 20 156/67 94 I/O 06/16/17 06/16/17 06/16/17 06/17/17 06/17/17 06/17/17 07:00 15:00 23:00 07:00 15:00 23:00 Intake Total 100 ml 173 ml 150 ml Output Total 400 ml 400 ml 800 ml Balance -300 ml -227 ml -650 ml Intake Oral 100 ml 60 ml 150 ml IV Total 113 ml Output Urine Total 400 ml 400 ml 800 ml # Bowel Movements 0 0 0 Laboratory Date/Time Procedure Status Source Growth 06/14/17 00:45 Urine Culture - Final Complete Urine Clean Catch NO GROWTH IN 48 HOURS. Imaging Last Impressions Chest CT 06/15/17 0000 Signed Impressions: Service Date/Time: Thursday, June 15, 2017 13:18 - CONCLUSION: 1. Bilateral air space consolidation involving both the upper and lower lobes. Multiple nodules are present the right middle lobe. Suggest followup to confirm resolution. 2. Small bilateral pleural effusions. 3. Mildly enlarged AP window and precarinal lymph nodes may be reactive secondary to the lung disease. Jd Alexander MD Abdomen/Pelvis CT 06/15/17 0000 Signed Impressions: Service Date/Time: Thursday, June 15, 2017 13:20 - CONCLUSION: 1. Hepatomegaly. Liver has a nodular contour with possible hypodense masses. This appearance could be related to cirrhosis or a liver containing innumerable masses. The liver has significantly increased in size from the prior study. 2. Trace free fluid in the pelvis. 3. Severe atherosclerotic disease. Jd Alexander MD Chest X-Ray 06/14/17 0000 Signed Impressions: Service Date/Time: Wednesday, June 14, 2017 00:01 - CONCLUSION: New bilateral pulmonary infiltrates most characteristic of pulmonary edema. This may be cardiogenic or noncardiogenic in origin. Deepak Martin MD Physical Exam HEENT: normocephalic; atraumatic; no jaundice. CHEST: wheezes CARDIAC: Regular rate and rhythm with no murmur gallop or rubs. ABDOMEN: Soft, nondistended, nontender; + hepatomegaly; bowel sounds are present in all four quadrants. EXTREMITIES: No clubbing, cyanosis, or edema. SKIN: Normal; no rash; no jaundice. [employer]: somnolent/lethargic (Tita Smith) Assessment and Plan Plan ASSESSMENT: - Severe anemia. HH relatively stable. Pt was brought from a local nursing facility for evaluation of epistaxis with anemia. Her nosebleed resolved on its own without intervention. She was noted to have a H/H of 6.3/18.8 on admission. She was transfused 2 units PRBC and her repeat H/H has remained stable. Per records, she had a colonoscopy in 1994. There is no signs of active bleeding. She is not stable for procedures at this time secondary to CHF/respiratory status and there is also some concern of metastatic cancer. CT 06-15-17--> increased hepatomegaly, poss masses- cirrhosis or innumerable masses Family does not want invasive procedures. - Massive hepatomegaly. Pt was noted to have massive hepatomegaly on exam. She cannot tell me if there is any history of liver disease. I called her son and he reports that at one point, there was some concern for liver cancer, but that "everything turned out okay." Review of records show that she had multiple liver masses in 2016. S/P liver biopsy in March of 2016 which revealed metastatic poorly differentiated carcinoma consistent with breast primary in needle core biopsy of fibrotic liver. - Elevated LFTs. Tbil increasing. Likely related to above. AFP 5.3, CEA 7.6H, CA 19-9 138.1H. - Epistaxis. Resolved without intervention. No further episodes. - Fluid overload, pulmonary infiltrates, hypoxia. On O2 6L via n/c. CXR with new bilateral pulmonary infiltrates most characteristic of pulmonary edema, s/p lasix yesterday- pt still with crackles. Nurse reports she went from R/A to O2 6L via n/c. Attending notified. - JOHN, improved. Creat 1.16. - Metastatic breast cancer with disease to the liver and lung. Dx with breast cancer in 2016. The last note by oncology in the EMR was with Dr. Ceron in November of 2016---> she was noted to have progression of the liver and lung while on Doxil and was on [place] at that time. At that time, she wanted to continue treatment, but was having a hard time emotionally and was referred to psychiatry at that time. It is unclear if she was seen by oncology after that appointment, as we do not have these records and the patient and son cannot tell me. Per palliative care, son opting for conservative mgmt and will reeval today - Dementia with delusional d/o, CAD, Hx Valvular heart dz (s/p avr), Hx CVA, DM , Gout, HTN per attending. PLAN: - family does not want invasive procedures. - Heart healthy puree diet with thin liquids (ST recommendations) - Protonix 40mg IV daily - Monitor HH - Transfuse as necessary - Supportive care - Pt seen and examined by Dr. Ngo and myself and this note is written on her behalf (Tita Smith) Tita Smith Jun 17, 2017 14:14 Vicky Ngo MD Jun 17, 2017 19:56
--- NOTE | 2017-06-17 14:15 | RADRPT ---
EXAM DATE/TIME: 06/17/2017 13:19 [facility] COMPARISON: CHEST SINGLE AP, June 14, 2017, 0:01. INDICATIONS : Pleural fluid. MEDICAL HISTORY : Carcinoma, breast. SURGICAL HISTORY : CABG. Mastectomy, bilateral. Port placement ENCOUNTER: Subsequent ACUITY: 4 - 6 days PAIN SCORE: Non-responsive. LOCATION: Bilateral chest FINDINGS: A single view of the chest demonstrates postoperative median sternotomy. Heart size enlarged. Left In fuse-a-Port in superior vena cava. Mild edema pattern slightly improved from June 14. No pneumothorax . CONCLUSION: 1. Postoperative median sternotomy with aortic valve replacement. Mild edema pattern slightly improve d. Probable trace pleural fluid. Jono Hess MD on June 17, 2017 at 14:13 Board Certified Radiologist. This report was verified electronically.
--- NOTE | 2017-06-17 16:09 | HHI.HCPN ---
Reason for visit a. To assist with evaluation and management of symptoms including: Debility and shortness of breath. b. To assist medical decision maker(s) with: better understanding of current medical conditions; weighing benefits/burdens of medical treatment options; making medical treatment decisions. . Subjective/Interval History Mrs. Hernandes is a 71 -year-old female with a medical history significant for metastatic breast cancer, delusional disorder, diabetes mellitus 2, CAD, CVA who was sent on 06/13/17 from [facility] for evaluation of anemia, hgb 6.3. 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 Originally diagnosed in January,. Patient being followed by Dr. Ceron. Patient was found to have multiple liver masses in 2015 and subsequently underwent a liver biopsy in Mar, 2016 which revealed metastatic poorly differentiated carcinoma consistent with breast primary in needle core biopsy of fibrotic liver. Palliative care consulted for further clarifications of goals of care given progression of metastatic disease, multiple ongoing chronic comorbidities, profound physical deconditioning and acute events. Patient seen in oncology floor. Resting in bed in no acute distress. Patient lethargic during my visit, briefly opening eyes to tactile stimuli. Not answering any questions or following commands. Remains on 6 L O2 via nasal cannula, oxygen saturation in the mid 90s. Remains afebrile, stable hemodynamically. Chest x-ray today revealing mild edema slightly improved. No new laboratory for review. No reports of acute bleeding. Patient currently on pured diet with thin liquids, ate some of her breakfast. Do not eat lunch secondary to lethargy. Follow-up telephone conversation with patient's son Lev. Medical update provided. Discussed patient remains requiring 6 L O2 via nasal cannula, decreased alertness today. Discussed that patient remains at a very high risk for further complications, continue decline and given her progressive metastatic disease, profound physical deconditioning -worsen since November 2016 , suspected GI bleed, pneumonia and ongoing multiple chronic comorbidities. Son resides in [place], he tells me that he is planning to visit patient next week, likely Wednesday. Patient's sister sister will be visiting the Wednesday. Goal of therapy remain unchanged, allow the weekend to see how patient's clinical condition continued to progress. likely to transition to comfort- directed care with hospice should her clinical condition does not improve or in the setting of additional decline. Case discussed with Dr. Velazco and bedside RN Lyn. . Family/friend interactions See interval note. . Advance Directives Advance Directive Specifics Health Care Surrogate(s): Patient's son does not know if AD completed. As per [place] law, proxy decision maker falls to patient's only son Lev. . Significant change in goals: Code. DNR/DNI. Continue conservative management short of no code. Son considering hospice. . Objective Vital Signs Date Time Temp Pulse Resp B/P Pulse Ox O2 Delivery O2 Flow Rate FiO2 06/17/17 12:00 97.8 82 22 141/62 95 06/17/17 11:38 Blow By 6.00 06/17/17 11:30 97.0 82 20 168/73 95 06/17/17 10:45 94 Nasal Cannula 6.00 06/17/17 07:50 96.3 77 20 162/70 93 06/17/17 04:00 97.2 80 18 155/67 97 06/17/17 03:12 93 Nasal Cannula 6.00 06/17/17 00:00 97.0 78 18 142/66 96 06/16/17 20:00 97.1 99 18 170/77 94 06/16/17 18:04 Nasal Cannula 6.00 Intake & Output 06/17/17 06/17/17 06:59 18:59 Intake Total 150 ml Output Total 800 ml Balance -650 ml Intake Oral 150 ml Output Urine Total 800 ml # Bowel Movements 0 Physical Exam CONSTITUTIONAL/GENERAL: This is an elderly, pale female in no acute distress. TUBES/LINES/DRAINS: PIV's, left chest Mediport, Hopkins catheter, NC, bilateral soft wrist restraints. SKIN: Very pale. No jaundice, rashes, or lesions. Ecchymoses on upper extremities. No wounds seen anteriorly. Skin temperature appropriate. Not diaphoretic. HEAD: Atraumatic. Normocephalic. EYES: Pupils equal and round and reactive. icterus sclera. No injection or drainage. Fundi not examined. ENT: Hearing appears normal. Nose without bleeding or purulent drainage. Moist oral mucosa. NECK: Trachea midline. Supple. CARDIOVASCULAR: Regular rate and rhythm. Peripheral pulses symmetric. RESPIRATORY/CHEST: Symmetric, mildly labored. Nasal cannula at 6 L. Mild inspiratory wheezes bilaterally. GASTROINTESTINAL: Abdomen distended, tender. Hepatomegaly. Bowel sounds present. GENITOURINARY: Without palpable bladder distension. Hopkins catheter in place. MUSCULOSKELETAL: Extremities without clubbing, cyanosis, or edema. NEUROLOGICAL: Lethargic, briefly opening eyes to voice. Not following commands. PSYCHIATRIC: Appears calm. . Diagnostic Tests Laboratory Laboratory Tests Test 06/14/17 06/15/17 06/15/17 06/16/17 23:30 04:40 12:30 05:55 Hemoglobin 8.9 GM/DL 8.5 GM/DL (11.6-15.3) (11.6-15.3) Hematocrit 26.3 % 25.7 % (35.0-46.0) (35.0-46.0) Sodium Level 145 MEQ/L 144 MEQ/L (136-145) (136-145) Potassium Level 4.6 MEQ/L 4.4 MEQ/L (3.5-5.1) (3.5-5.1) Chloride Level 113 MEQ/L 113 MEQ/L (98-107) (98-107) Carbon Dioxide Level 21.1 MEQ/L 22.0 MEQ/L (21.0-32.0) (21.0-32.0) Anion Gap 11 MEQ/L (5-15) 9 MEQ/L (5-15) Blood Urea Nitrogen 54 MG/DL (7-18) 57 MG/DL (7-18) Creatinine 1.16 MG/DL 1.23 MG/DL (0.50-1.00) (0.50-1.00) Estimat Glomerular Filtration 46 ML/MIN (>89) 43 ML/MIN (>89) Rate Random Glucose 176 MG/DL 177 MG/DL (74-106) (74-106) Calcium Level 8.9 MG/DL 8.7 MG/DL (8.5-10.1) (8.5-10.1) Tumor Marker Alpha Fetoprotein 5.3 NG/ML (0.5-8.0) Carcinoembryonic Antigen 7.6 NG/ML (0.2-5.0) CA 19-9 Antigen 138.1 U/ML (0.0-35.0) White Blood Count 11.1 TH/MM3 (4.0-11.0) Red Blood Count 2.74 MIL/MM3 (4.00-5.30) Mean Corpuscular Volume 93.6 FL (80.0-100.0) Mean Corpuscular Hemoglobin 30.9 PG (27.0-34.0) Mean Corpuscular Hemoglobin 33.0 % Concent (32.0-36.0) Red Cell Distribution Width 15.1 % (11.6-17.2) Platelet Count 129 TH/MM3 (150-450) Mean Platelet Volume 10.2 FL (7.0-11.0) Neutrophils (%) (Auto) 77.0 % (16.0-70.0) Lymphocytes (%) (Auto) 11.6 % (9.0-44.0) Monocytes (%) (Auto) 10.3 % (0.0-8.0) Eosinophils (%) (Auto) 0.7 % (0.0-4.0) Basophils (%) (Auto) 0.4 % (0.0-2.0) Neutrophils # (Auto) 8.5 TH/MM3 (1.8-7.7) Lymphocytes # (Auto) 1.3 TH/MM3 (1.0-4.8) Monocytes # (Auto) 1.1 TH/MM3 (0-0.9) Eosinophils # (Auto) 0.1 TH/MM3 (0-0.4) Basophils # (Auto) 0.0 TH/MM3 (0-0.2) CBC Comment DIFF FINAL Differential Comment Lactic Acid Level 1.1 mmol/L (0.4-2.0) Total Bilirubin 1.2 MG/DL (0.2-1.0) Aspartate Amino Transf 144 U/L (15-37) (AST/SGOT) Alanine Aminotransferase 38 U/L (10-53) (ALT/SGPT) Alkaline Phosphatase 251 U/L (45-117) Total Protein 6.8 GM/DL (6.4-8.2) Albumin 3.0 GM/DL (3.4-5.0) Result Diagram: 06/16/17 0555 06/16/17 0555 Imaging Last 48 hours Impressions Chest X-Ray 06/17/17 0000 Signed Impressions: Service Date/Time: June 13:19 - CONCLUSION: 1. Postoperative median sternotomy with aortic valve replacement. Mild edema pattern slightly improved. Probable trace pleural fluid. Jono Hess MD Assessment and Plan Disease Oriented Problem List: (1) Respiratory distress (2) Anemia (3) JOHN (acute kidney injury) (4) Metastatic breast cancer (5) Hepatomegaly (6) Altered mental status Symptom Scale: (1) Shortness of breath 0-10 Scale: Unable to quantify Comment: Multifactorial, secondary to anemia, fluid overload, pulmonary infiltrates. Currently on 6 L nasal cannula. (2) Debility 0-10 Scale: Unable to quantify Comment: Progressive. Worsen since November 2016. Patient resident of long- term facility since December 2016. Pertinent Non-Medical Issues Psychosocial: Patient born and raised in [place] [facility]. , has 1 son who resides in [place]. Patient lived independently prior to November 2016, resident of a long-term facility since December 2016 Spiritual: [employer]. Legal: Unknown if AD completed. Ethical issues impacting care: Patient unable to participate in medical decision -making. Benjamin Ohara acting as HCP. . Important Contacts Benjamin Devivin . . Prognosis Mrs. Hernandes is a 71 -year-old female with a medical history significant for metastatic breast cancer, delusional disorder, diabetes mellitus 2, CAD, CVA who was sent on 06/13/17 from [facility] for evaluation of anemia. Patient with progression of metastatic breast cancer, involvement to right lung and liver. Patient with progressive physical and cognitive decline, resident of long-term facility since December 2016. Overall prognosis is poor given her progression of metastatic disease, profound physical deconditioning since November 2016, GI bleed and ongoing multiple chronic comorbidities. Patient currently with PPS of 30%, respiratory distress requiring 6 L O2 via nasal cannula. Patient at high risk for further complications, continue decline and . Patient appears appropriate for hospice services given the above. Life expectancy of days to weeks if illness run its natural course. . Code Status: No Code Plan * CODE STATUS: DNR/DNI. Community DNR signed by patient on 01/11/17 in chart. * HEALTHCARE DECISION-MAKING: Patient unable to participate in medical decision- making, AMS. Patient's son does not know if advance directives completed. As per [place] law, proxy decision maker falls to patient's only son Lev Dockery. * GOALS OF CARE: As per benjamin Ohara acting as HCP, goal of therapy is to continue with conservative management short of NO code and NO invasive procedures and/or interventions. Son would like to allow the weekend to see how patient's clinical condition continues to progress. Son is very receptive to hospice services should patient's condition does not improve or continues to worsen. * Son resides in [place]. Will be visiting patient next week, likely Wednesday06/23/17. Patient's sister to visit over the weekend. * SYMPTOMS: = Shortness of breath, Multifactorial, secondary to anemia, fluid overload, pulmonary infiltrates. Currently on 6 L nasal cannula. = Debility, Progressive. Worsen since November 2016. Patient resident of long-term facility since December 2016. * Case discussed with Dr. Velazco and bedside RN Lyn. * Palliative care contact information has been provided to patient's son. * Palliative care will continue to follow-up for further clarifications of goals of care as patient's clinical course continues to evolve. . Time Spent Total Floor Time (mins): 25 (Total time to include review medical records, physical exam, telephone conversation with patient's son, case discussion with Dr. Hensley and bedside DAVID Lara.) >50% Counseling/Coord of Care: Yes Attestation To help prompt me to consider important information that might be impacting today's encounter and assessment, information from prior notes written by myself or my colleagues may have been "brought forward" into today's note. My signature on this note, however, is an attestation that I personally performed the exam, history, and/or decision-making noted today, and, unless otherwise indicated, the interactions with patient, family, and staff as well as the review of records all occurred today. I also attest that the listed assessment and stated plan reflect my best clinical judgment today based on the combination of historical information, prior notes, and today's exam/ interactions. When time spent is documented, it refers only to time spent today by the signer, or if indicated, combined time spent today by collaborating physician/nurse practitioner. Wendy Chamorro Jun 17, 2017 16:09
[2017-06-17] MEDS: INSULIN DETEMIR 100 UNITS/ML VIAL SQ SCH (21:00)
[2017-06-18] VITALS (7 sets, daily range): BP systolic 102–162; BP diastolic 54–65; PULSE 74–89; RESP 16–20; TEMP 95.6–98; O2SAT 92–96
[2017-06-18] MEDS: PIPERACIL-TAZO 4.5 GM PREMIX 100 ML IV SCH ×3 (00:22→18:10)
[2017-06-18] MEDS: VANCOMYCIN INJ 1,500 MG in SODIUM CHLORID 0.9% 500 ML INJ 500 ML IV SCH (05:39)
[2017-06-18] MEDS: INSULIN ASPART SUPPLEMENTAL SCALE SQ SCH ×4 (05:43→20:39)
[2017-06-18] MEDS: PANTOPRAZOLE SOD 40 MG DELAYED RELEASE TAB PO SCH ×2 (08:38→20:38)
[2017-06-18] MEDS: FUROSEMIDE 20 MG/2 ML VIAL IV PUSH SCH ×2 (08:38→18:10)
[2017-06-18] MEDS: DOCUSATE SODIUM 50 MG/SENNA 8.6 MG TAB PO SCH ×2 (08:38→20:37)
[2017-06-18] MEDS: SODIUM CHLORIDE 0.9% FLUSH 10 ML FLUSH IV FLUSH SCH ×2 (08:41→20:35)
--- NOTE | 2017-06-18 08:42 | HHI.PR ---
Subjective Remarks Follow up for anemia, JOHN in a patient with a history of stage IV breast cancer. Patient resting in bed, wakes up on verbal commands. Denies any acute concerns. Objective Vitals Vital Signs Date Time Temp Pulse Resp B/P Pulse Ox O2 Delivery O2 Flow Rate FiO2 06/18/17 04:47 98.0 74 18 118/59 96 06/18/17 00:59 97.9 77 18 139/65 95 06/17/17 23:08 94 Nasal Cannula 6.00 Humidified 06/17/17 21:39 96.0 105 18 86/52 92 06/17/17 19:59 93 Nasal Cannula 6.00 06/17/17 15:30 96.9 75 20 139/62 95 06/17/17 12:00 97.8 82 22 141/62 95 06/17/17 11:38 Blow By 6.00 06/17/17 11:30 97.0 82 20 168/73 95 06/17/17 10:45 94 Nasal Cannula 6.00 I/O 06/17/17 06/17/17 06/17/17 06/18/17 06/18/17 06/18/17 07:00 15:00 23:00 07:00 15:00 23:00 Intake Total 150 ml 60 ml 200 ml Output Total 800 ml 550 ml Balance -650 ml -490 ml 200 ml Intake Oral 150 ml 60 ml IV Total 200 ml Output Urine Total 800 ml 550 ml # Bowel Movements 0 0 Result Diagram: 06/16/17 0555 06/16/17 0555 Imaging Last Impressions Chest X-Ray 06/17/17 0000 Signed Impressions: Service Date/Time: June 13:19 - CONCLUSION: 1. Postoperative median sternotomy with aortic valve replacement. Mild edema pattern slightly improved. Probable trace pleural fluid. Jono Hess MD Chest CT 06/15/17 0000 Signed Impressions: Service Date/Time: Thursday, June 15, 2017 13:18 - CONCLUSION: 1. Bilateral air space consolidation involving both the upper and lower lobes. Multiple nodules are present the right middle lobe. Suggest followup to confirm resolution. 2. Small bilateral pleural effusions. 3. Mildly enlarged AP window and precarinal lymph nodes may be reactive secondary to the lung disease. Jd Alexander MD Abdomen/Pelvis CT 06/15/17 0000 Signed Impressions: Service Date/Time: Thursday, June 15, 2017 13:20 - CONCLUSION: 1. Hepatomegaly. Liver has a nodular contour with possible hypodense masses. This appearance could be related to cirrhosis or a liver containing innumerable masses. The liver has significantly increased in size from the prior study. 2. Trace free fluid in the pelvis. 3. Severe atherosclerotic disease. Jd Alexander MD Objective Remarks GENERAL: Alert, NAD. SKIN: Warm and dry. HEAD: Normocephalic. EYES: No scleral icterus. No injection or drainage. NECK: Supple, trachea midline. No JVD or lymphadenopathy. CARDIOVASCULAR: Regular rate and rhythm without murmurs, gallops, or rubs. RESPIRATORY: Breath sounds equal bilaterally. No accessory muscle use. GASTROINTESTINAL: Abdomen soft, non-tender, nondistended. MUSCULOSKELETAL: No cyanosis, or edema. BACK: Nontender without obvious deformity. No CVA tenderness. Procedures None. A/P Problem List: (1) Symptomatic anemia ICD Code: D64.9 Status: Acute (2) JOHN (acute kidney injury) ICD Code: N17.9 Status: Acute (3) Hyperkalemia ICD Code: E87.5 Status: Acute (4) Diabetes ICD Code: E11.9 Status: Chronic Assessment and Plan 71-year-old female with past medical history of delusional disorder, breast cancer, DM, CAD, CVA who was sent from SNF for nosebleed and anemia Acute on Chronic anemia Patient with nosebleed, spontaneously resolved. Hemoglobin on admission 6.3. Hemoglobin as outpatient 5 days ago was 6.4. Hemoglobin previously 12.0 on 12/09/16. Aspirin discontinued. Hemoccult negative. Transfused 2 units PRBCs. M - Hemoglobin 6.3 --> 8.9 --> 8.1 --> 8.9 --> 8.5. - Consulted GI. Appreciate GI input. At this point, H&H stable. No overt GI bleed. May not need any endoscopic study. - Continue Protonix 40mg Q12hrs. Probable bilateral pneumonia Bilateral pleural effusion History of metastatic right breast cancer, triple negative. - Per Oncology note from Dec 2016, patient was on palliative care. - CT chest images reviewed by me, shows extensive infiltrates and pleural effusion bilaterally. - Will start patient on Vancomycin and Zosyn. - Lasix 20mg IV BID - Lactic acid 1.1. CBC shows mild leukocytosis, Hgb 8.9 --> 8.5. - Will add DuoNeb breathing treatments. - Titrate O2 requirement to keep O2 sat > 90%. Dialed O2 to 3L, patient continues to remain in >90% saturation. - We obtained ABG this morning. ABG shows no evidence of CO2 narcosis. Acute kidney injury Hyperkalemia - Creatinine improved from 1.93 --> 1.16 --> 1.23 on 06/16/2017. - Patient received multiple potassium lowering medications including insulin , Albuterol, Kayexalate, Lasix - Currently corrected. K+ 4.4. Acute encephalopathy: Likely metabolic secondary to the above on top of chronic dementia. Appears to be improved. Hold Zyprexa. - UA shows WBC 1. No evidence of UTI. - Speech evaluated - recommends pureed food with thin liquid. Diabetes mellitus - Continue Levemir 10 units QHS and continue Sliding scale insulin. DNR. SCDs. Discussed with palliative care team. We will continue current treatment plan. Patient is hospice appropriate. Candice Velazco DO Jun 18, 2017 08:42
[2017-06-18 09:42] LABS: BLOOD GAS BASE EXCESS -5.1 mmol/L (-2-2); BLOOD GAS CARBOXYHEMOGLOBIN 1.4 % (0-4); BLOOD GAS HCO3 19 mmol/L (22-26); BLOOD GAS O2 HGB SATURATION 90 % (90-100); BLOOD GAS OXYGEN CONTENT 16.2 Vol % (12.0-20.0); BLOOD GAS PCO2 33 mmHg (38-42); BLOOD GAS PO2 66 mmHg (61-120); BLOOD GAS TOTAL HGB 12.8 G/DL (12.0-16.0); TEMP CORR TO 98.6
[2017-06-18 09:43] LABS: CRITICAL VALUE NO; DRAW SITE LT RADIAL; LITER FLOW 3 L/M; NUMBER OF ARTERIAL PUNCTURES 2; OXYGEN DEVICE NASAL CANNULA
[2017-06-18 09:44] LABS: STAT YES; ULNAR PULSE PRESENT
--- NOTE | 2017-06-18 15:52 | HHI.GIFU ---
Subjective Remarks Pt sleeping, does not rouse to verbal or gentle physical stimuli. Not eating much. (Tita Smith) Objective Vitals I&O Vital Signs Date Time Temp Pulse Resp B/P Pulse Ox O2 Delivery O2 Flow Rate FiO2 06/18/17 12:00 97.5 89 20 146/61 92 06/18/17 10:00 95.6 86 18 162/61 94 06/18/17 09:01 93 Nasal Cannula 3.00 06/18/17 09:00 89 95 06/18/17 04:47 98.0 74 18 118/59 96 06/18/17 00:59 97.9 77 18 139/65 95 06/17/17 23:08 94 Nasal Cannula 6.00 Humidified 06/17/17 21:39 96.0 105 18 86/52 92 06/17/17 19:59 93 Nasal Cannula 6.00 I/O 06/17/17 06/17/17 06/17/17 06/18/17 06/18/17 06/18/17 06:59 14:59 22:59 06:59 14:59 22:59 Intake Total 150 ml 60 ml 200 ml Output Total 800 ml 550 ml 1150 ml Balance -650 ml -490 ml 200 ml -1150 ml Intake Oral 150 ml 60 ml IV Total 200 ml Output Urine Total 800 ml 550 ml 1150 ml # Bowel Movements 0 0 Laboratory Laboratory Tests Test 06/18/17 09:25 Blood Gas Puncture Site LT RADIAL Blood Gas Patient Temperature 98.6 Blood Gas HCO3 19 Blood Gas Base Excess -5.1 Blood Gas Oxygen Saturation 90 Arterial Blood pH 7.38 Arterial Blood Partial 33 Pressure CO2 Arterial Blood Partial 66 Pressure O2 Arterial Blood Oxygen Content 16.2 Arterial Blood 1.4 Carboxyhemoglobin Arterial Blood Methemoglobin 1.0 Blood Gas Hemoglobin 12.8 Oxygen Delivery Device NASAL CANNULA Blood Gas Liter Flow 3 Date/Time Procedure Status Source Growth 06/14/17 00:45 Urine Culture - Final Complete Urine Clean Catch NO GROWTH IN 48 HOURS. Physical Exam HEENT: normocephalic; atraumatic; no jaundice. CHEST: wheezes/crackles CARDIAC: irr HR ABDOMEN: Soft, nondistended, nontender; + hepatomegaly; bowel sounds are present in all four quadrants. EXTREMITIES: No clubbing, cyanosis, or edema. SKIN: Normal; no rash; no jaundice. WOMEN'S SWIM COACH: somnolent/lethargic (Tita Smith) Assessment and Plan Plan ASSESSMENT: - Severe anemia. HH relatively stable. Pt was brought from a local nursing facility for evaluation of epistaxis with anemia. Her nosebleed resolved on its own without intervention. She was noted to have a H/H of 6.3/18.8 on admission. She was transfused 2 units PRBC and her repeat H/H has remained stable. Per records, she had a colonoscopy in 1994. There is no signs of active bleeding. She is not stable for procedures at this time secondary to CHF/respiratory status and there is also some concern of metastatic cancer. CT 06-15-17--> increased hepatomegaly, poss masses- cirrhosis or innumerable masses Family does not want invasive procedures. - Massive hepatomegaly. Pt was noted to have massive hepatomegaly on exam. She cannot tell me if there is any history of liver disease. I called her son and he reports that at one point, there was some concern for liver cancer, but that "everything turned out okay." Review of records show that she had multiple liver masses in 2016. S/P liver biopsy in March of 2016 which revealed metastatic poorly differentiated carcinoma consistent with breast primary in needle core biopsy of fibrotic liver. - Elevated LFTs. Likely related to above. AFP 5.3, CEA 7.6H, CA 19-9 138.1H. - Epistaxis. Resolved without intervention. No further episodes. - Fluid overload, pulmonary infiltrates, hypoxia. On O2 6L via n/c. CXR with new bilateral pulmonary infiltrates most characteristic of pulmonary edema, s/p lasix yesterday- pt still with crackles. Nurse reports she went from R/A to O2 6L via n/c. Attending notified. - JOHN, improved. Creat 1.16. - Metastatic breast cancer with disease to the liver and lung. Dx with breast cancer in 2016. The last note by oncology in the EMR was with Dr. Ceron in November of 2016---> she was noted to have progression of the liver and lung while on Doxil and was on [place] at that time. At that time, she wanted to continue treatment, but was having a hard time emotionally and was referred to psychiatry at that time. It is unclear if she was seen by oncology after that appointment, as we do not have these records and the patient and son cannot tell me. Per palliative care, son opting for conservative mgmt and will reeval today - Dementia with delusional d/o, CAD, Hx Valvular heart dz (s/p avr), Hx CVA, DM , Gout, HTN per attending. PLAN: - family does not want invasive procedures at this time - hospice following - Heart healthy puree diet with thin liquids (ST recommendations) - Protonix 40mg IV daily - Monitor HH - Transfuse as necessary - Supportive care - Pt seen and examined by Dr. Ngo and myself and this note is written on her behalf (Tita Smith) Plan gi will sign off call us as needed or if aggressive treatment requested by family (Vicky Ngo MD) Tita Smith Jun 18, 2017 15:52 Vicky Ngo MD Jun 18, 2017 20:22
[2017-06-18] MEDS: INSULIN DETEMIR 100 UNITS/ML VIAL SQ SCH (20:39)
[2017-06-19] VITALS (8 sets, daily range): BP systolic 114–125; BP diastolic 51–64; PULSE 72–99; RESP 16–20; TEMP 96.3–97.4; O2SAT 92–96
[2017-06-19] MEDS: PIPERACIL-TAZO 4.5 GM PREMIX 100 ML IV SCH ×3 (00:30→21:12)
[2017-06-19] MEDS ORDERED: PHARMACY ORDERED LAB ONE (05:45)
[2017-06-19] MEDS: VANCOMYCIN INJ 1,500 MG in SODIUM CHLORID 0.9% 500 ML INJ 500 ML IV SCH (06:00)
[2017-06-19] MEDS: INSULIN ASPART SUPPLEMENTAL SCALE SQ SCH ×4 (06:44→21:20)
[2017-06-19] MEDS: DOCUSATE SODIUM 50 MG/SENNA 8.6 MG TAB PO SCH ×2 (09:00→21:00)
[2017-06-19] MEDS: PANTOPRAZOLE SOD 40 MG DELAYED RELEASE TAB PO SCH ×2 (09:00→21:00)
--- NOTE | 2017-06-19 09:24 | HHI.PR ---
Subjective Remarks In bed. Nonverbal. Sleepy. Appears at baseline. Per nurse she was fed in the morning and she was eating. Objective Vitals Vital Signs Date Time Temp Pulse Resp B/P Pulse Ox O2 Delivery O2 Flow Rate FiO2 06/19/17 08:00 97.4 87 16 118/53 92 06/19/17 05:51 93 Nasal Cannula 6.00 06/19/17 04:00 96.3 98 17 125/58 95 06/19/17 00:00 97.1 72 20 114/51 96 06/18/17 20:50 95 Nasal Cannula 5.00 Humidified 06/18/17 20:00 96.7 80 16 102/56 93 06/18/17 17:00 97.2 88 18 131/54 95 06/18/17 12:00 97.5 89 20 146/61 92 06/18/17 10:00 95.6 86 18 162/61 94 I/O 06/18/17 06/18/17 06/18/17 06/19/17 06/19/17 06/19/17 07:00 15:00 23:00 07:00 15:00 23:00 Intake Total 620 ml 100 ml Output Total 1650 ml 450 ml Balance -1030 ml -350 ml Intake Oral 620 ml 100 ml Output Urine Total 1650 ml 450 ml Result Diagram: 06/16/17 0555 06/16/17 0555 Imaging Last Impressions Chest X-Ray 06/17/17 0000 Signed Impressions: Service Date/Time: June 13:19 - CONCLUSION: 1. Postoperative median sternotomy with aortic valve replacement. Mild edema pattern slightly improved. Probable trace pleural fluid. Jono Hess MD Chest CT 06/15/17 0000 Signed Impressions: Service Date/Time: Thursday, June 15, 2017 13:18 - CONCLUSION: 1. Bilateral air space consolidation involving both the upper and lower lobes. Multiple nodules are present the right middle lobe. Suggest followup to confirm resolution. 2. Small bilateral pleural effusions. 3. Mildly enlarged AP window and precarinal lymph nodes may be reactive secondary to the lung disease. Jd Alexander MD Abdomen/Pelvis CT 06/15/17 0000 Signed Impressions: Service Date/Time: Thursday, June 15, 2017 13:20 - CONCLUSION: 1. Hepatomegaly. Liver has a nodular contour with possible hypodense masses. This appearance could be related to cirrhosis or a liver containing innumerable masses. The liver has significantly increased in size from the prior study. 2. Trace free fluid in the pelvis. 3. Severe atherosclerotic disease. Jd Alexander MD Objective Remarks GENERAL: 71 yo frail F, well nourished, well developed patient, alert and oriented, appears in NAD. NECK: Supple, trachea midline. No JVD or lymphadenopathy. CARDIOVASCULAR: Regular rate and rhythm without murmurs, gallops, or rubs. RESPIRATORY: Breath sounds equal bilaterally. No accessory muscle use. GASTROINTESTINAL: Abdomen soft, non-tender, nondistended. MUSCULOSKELETAL: No cyanosis, or edema. BACK: Nontender without obvious deformity. No CVA tenderness. Procedures None. A/P Problem List: (1) Symptomatic anemia ICD Code: D64.9 Status: Acute (2) JOHN (acute kidney injury) ICD Code: N17.9 Status: Acute (3) Hyperkalemia ICD Code: E87.5 Status: Acute (4) Diabetes ICD Code: E11.9 Status: Chronic Assessment and Plan 71-year-old female with past medical history of delusional disorder, breast cancer, DM, CAD, CVA who was sent from SNF for nosebleed and anemia Acute on Chronic anemia Patient with nosebleed, spontaneously resolved. Hemoglobin on admission 6.3. Hemoglobin as outpatient 5 days ago was 6.4. Hemoglobin previously 12.0 on 12/09/16. Aspirin discontinued. Hemoccult negative. Transfused 2 units PRBCs. M Hemoglobin 6.3 --> 8.9 --> 8.1 --> 8.9 --> 8.5. H/H stable Consulted GI. Appreciate GI input. At this point, H&H stable. No overt GI bleed. May not need any endoscopic study. Continue Protonix 40mg Q12hrs. Probable bilateral pneumonia Bilateral pleural effusion History of metastatic right breast cancer, triple negative Per Oncology note from Dec 2016, patient was on palliative care. CT chest images reviewed by me, shows extensive infiltrates and pleural effusion bilaterally. Will start patient on Vancomycin and Zosyn. Lasix 20mg IV BID Lactic acid 1.1. CBC shows mild leukocytosis, Hgb 8.9 --> 8.5. Will add DuoNeb breathing treatments. Titrate O2 requirement to keep O2 sat > 90%. Dialed O2 to 3L, patient continues to remain in >90% saturation. We obtained ABG this morning. ABG shows no evidence of CO2 narcosis. Acute kidney injury Hyperkalemia Creatinine improved from 1.93 --> 1.16 --> 1.23 on 06/16/2017. Patient received multiple potassium lowering medications including insulin, Albuterol, Kayexalate, Lasix Currently corrected. K+ 4.4. Acute encephalopathy: Likely metabolic secondary to the above on top of chronic dementia. Appears to be improved. Hold Zyprexa UA shows WBC 1. No evidence of UTI. Speech evaluated - recommends pureed food with thin liquid. Diabetes mellitus 2 - Continue Levemir 10 units QHS and continue Sliding scale insulin. DNR. SCDs. Palliative care team ff. Continue current treatment plan. Patient is hospice appropriate. Lillie Morales MD Jun 19, 2017 09:24
[2017-06-19] MEDS: FUROSEMIDE 20 MG/2 ML VIAL IV PUSH SCH ×2 (11:09→17:57)
[2017-06-19] MEDS: SODIUM CHLORIDE 0.9% FLUSH 10 ML FLUSH IV FLUSH SCH ×2 (11:24→21:12)
[2017-06-19] MEDS: INSULIN DETEMIR 100 UNITS/ML VIAL SQ SCH (21:20)
[2017-06-20] VITALS (10 sets, daily range): BP systolic 134–170; BP diastolic 57–83; PULSE 26–100; RESP 14–26; TEMP 96.5–100.4; O2SAT 88–94
[2017-06-20] MEDS: PIPERACIL-TAZO 4.5 GM PREMIX 100 ML IV SCH (04:35)
[2017-06-20 05:52] LABS: AUTOMATED NEUTROPHIL # 8.2 TH/MM3 (1.8-7.7); BASOPHIL # 0.1 TH/MM3 (0-0.2); BASOPHIL % 0.7 % (0.0-2.0); EOSINOPHIL # 0.3 TH/MM3 (0-0.4); EOSINOPHIL % 2.3 % (0.0-4.0); HEMATOCRIT 24.7 % (35.0-46.0); HEMO FLAGS DIFF FINAL; LYMPH % 14.2 % (9.0-44.0); LYMPHOCYTE # 1.6 TH/MM3 (1.0-4.8); MEAN CELL VOLUME 93.1 FL (80.0-100.0); MEAN CORPUSCULAR HEMOGLOBIN 31.5 PG (27.0-34.0); MEAN CORPUSCULAR HGB CONC 33.9 % (32.0-36.0); MONO % 11.6 % (0.0-8.0); NEUT % 71.2 % (16.0-70.0); PLATELET COUNT 113 TH/MM3 (150-450); RED BLOOD COUNT 2.66 MIL/MM3 (4.00-5.30); RED CELL DISTRIBUTION WIDTH 15.4 % (11.6-17.2); WHITE BLOOD COUNT 11.5 TH/MM3 (4.0-11.0)
[2017-06-20 06:02] LABS: BICARBONATE 24.9 MEQ/L (21.0-32.0); POTASSIUM 3.2 MEQ/L (3.5-5.1)
[2017-06-20] MEDS: INSULIN ASPART SUPPLEMENTAL SCALE SQ SCH ×4 (06:03→20:30)
[2017-06-20] MEDS: RESP: ALBUTEROL 2.5 MG/IPRATROPIUM 0.5 MG NEB (PRN) NEB (08:42)
--- NOTE | 2017-06-20 09:18 | HHI.PR ---
Subjective Remarks Vital signs stable. Patient requiring 6 L nasal cannula with an oxygen saturation of 94%. Nonresponsive at this time. Objective Vitals Vital Signs Date Time Temp Pulse Resp B/P Pulse Ox O2 Delivery O2 Flow Rate FiO2 06/20/17 08:48 94 Nasal Cannula 5.00 06/20/17 07:52 Nasal Cannula 5.00 06/20/17 04:00 96.9 100 16 138/57 94 06/20/17 00:00 96.5 98 16 134/58 94 06/19/17 21:20 Nasal Cannula 5.00 06/19/17 20:09 94 Nasal Cannula 5.00 06/19/17 20:00 96.9 99 16 120/56 94 06/19/17 13:00 97.0 76 18 121/64 94 06/19/17 12:48 94 Nasal Cannula 5.00 06/19/17 09:55 94 Nasal Cannula 5.00 I/O 06/19/17 06/19/17 06/19/17 06/20/17 06/20/17 06/20/17 07:00 15:00 23:00 07:00 15:00 23:00 Intake Total 346 ml 160 ml 40 ml Output Total 300 ml 175 ml 250 ml Balance 46 ml -15 ml -210 ml Intake Oral 240 ml 160 ml 40 ml IV Total 106 ml Output Urine Total 300 ml 175 ml 250 ml # Bowel Movements 1 Result Diagram: 06/20/17 0510 06/20/17 0510 Objective Remarks GENERAL: 71 yo frail F, well nourished, well developed patient, alert and oriented, appears in NAD. NECK: Supple, trachea midline. No JVD or lymphadenopathy. CARDIOVASCULAR: Regular rate and rhythm without murmurs, gallops, or rubs. RESPIRATORY: Positive accessory muscle use. Bilateral wheezes and rhonchi. GASTROINTESTINAL: Abdomen soft, non-tender, nondistended. MUSCULOSKELETAL: No cyanosis, or edema. BACK: Nontender without obvious deformity. No CVA tenderness. Procedures None. A/P Problem List: (1) Symptomatic anemia ICD Code: D64.9 Status: Acute (2) JOHN (acute kidney injury) ICD Code: N17.9 Status: Acute (3) Hyperkalemia ICD Code: E87.5 Status: Acute (4) Diabetes ICD Code: E11.9 Status: Chronic Assessment and Plan 71-year-old female with past medical history of delusional disorder, breast cancer, DM, CAD, CVA who was sent from SNF for nosebleed and anemia Acute on Chronic anemia Patient with nosebleed, spontaneously resolved. Hemoglobin on admission 6.3. Hemoglobin as outpatient 5 days ago was 6.4. Hemoglobin previously 12.0 on 12/09/16. Aspirin discontinued. Hemoccult negative. Transfused 2 units PRBCs. Hemoglobin 6.3 --> 8.9 --> 8.1 --> 8.9 --> 8.5. H/H stable Consulted GI. Family does not desire invasive procedures at this time, trend H/ H. Continue Protonix 40mg Q12hrs. Probable bilateral pneumonia Bilateral pleural effusion History of metastatic right breast cancer, triple negative Per Oncology note from Dec 2016, patient was on palliative care. CT chest images reviewed by me, shows extensive infiltrates and pleural effusion bilaterally. Continue Vancomycin and Zosyn. Lactic acid 1.1. Patient continues to have leukocytosis. DuoNeb's when necessary Patient's oxygen requirement increasing, spoke with son who agrees to BiPAP if necessary. Patient to remain DNI/DNR. Acute kidney injury Hyperkalemia Creatinine initially improved, now 1.97. Patient with poor by mouth intake. Will hydrate with IV fluids. Patient received multiple potassium lowering medications including insulin, Albuterol, Kayexalate, Lasix. Potassium now 3.2. Holding Lasix. Discontinue Kayexalate. Patient given 20 mEq of potassium 1. Repeat in the a.m. Acute encephalopathy: Likely metabolic secondary to the above on top of chronic dementia. Appears to be improved. Hold Zyprexa UA shows WBC 1. No evidence of UTI. Speech evaluated - recommends pureed food with thin liquid. Diabetes mellitus 2 - Continue Levemir 10 units QHS and continue Sliding scale insulin. DNR. SCDs. Palliative care team ff. Continue current treatment plan. Patient is hospice appropriate. Spoke with son who plans to be here as early as tomorrow. Upon his arrival, he will likely transition his mother to hospice. Discharge Planning Likely with hospice, pending son's arrival potentially as soon as tomorrow. Day Perales MD R3 Jun 20, 2017 09:18
[2017-06-20] MEDS: SODIUM CHLOR 0.9% 1000 ML INJ 1,000 ML IV SCH ×2 (09:48→21:00)
[2017-06-20] MEDS: SODIUM CHLORIDE 0.9% FLUSH 10 ML FLUSH IV FLUSH SCH ×2 (09:54→20:29)
[2017-06-20] MEDS: DOCUSATE SODIUM 50 MG/SENNA 8.6 MG TAB PO SCH ×2 (09:54→20:30)
[2017-06-20] MEDS: PANTOPRAZOLE SOD 40 MG DELAYED RELEASE TAB PO SCH ×2 (09:54→20:30)
[2017-06-20] MEDS: PIPERACIL-TAZO 2.25 GM PREMIX 50 ML IV SCH ×3 (10:40→21:00)
[2017-06-20] MEDS: POTASSIUM CHLOR 20 MEQ PREMIX 100 ML IV SCH ×2 (12:11→14:04)
[2017-06-20] MEDS: INSULIN DETEMIR 100 UNITS/ML VIAL SQ SCH (20:30)
[2017-06-21] VITALS: BP 164/73; PULSE 98; RESP 20; TEMP 96.2; O2SAT 90
[2017-06-21] MEDS: RESP: ALBUTEROL 2.5 MG/IPRATROPIUM 0.5 MG NEB (PRN) NEB (00:35)
[2017-06-21 00:40] VITALS: O2SAT 90
[2017-06-21] MEDS: PIPERACIL-TAZO 2.25 GM PREMIX 50 ML IV SCH ×3 (03:41→16:00)
[2017-06-21 04:00] VITALS: BP 126/58; PULSE 89; RESP 20; TEMP 96.1; O2SAT 91
[2017-06-21 05:45] LABS: AUTOMATED NEUTROPHIL # 8.2 TH/MM3 (1.8-7.7); BASOPHIL # 0.1 TH/MM3 (0-0.2); BASOPHIL % 0.7 % (0.0-2.0); EOSINOPHIL # 0.2 TH/MM3 (0-0.4); HEMATOCRIT 25.1 % (35.0-46.0); HEMO FLAGS DIFF FINAL; LYMPH % 11.5 % (9.0-44.0); LYMPHOCYTE # 1.2 TH/MM3 (1.0-4.8); MEAN CELL VOLUME 94.7 FL (80.0-100.0); MEAN CORPUSCULAR HEMOGLOBIN 31.1 PG (27.0-34.0); MEAN CORPUSCULAR HGB CONC 32.8 % (32.0-36.0); MONO % 9.3 % (0.0-8.0); NEUT % 76.5 % (16.0-70.0); PLATELET COUNT 116 TH/MM3 (150-450); RED BLOOD COUNT 2.65 MIL/MM3 (4.00-5.30); RED CELL DISTRIBUTION WIDTH 15.8 % (11.6-17.2); WHITE BLOOD COUNT 10.7 TH/MM3 (4.0-11.0)
[2017-06-21 06:00] LABS: BICARBONATE 22.4 MEQ/L (21.0-32.0); POTASSIUM 3.5 MEQ/L (3.5-5.1)
[2017-06-21] MEDS: INSULIN ASPART SUPPLEMENTAL SCALE SQ SCH ×3 (06:08→16:05)
[2017-06-21 08:00] VITALS: BP 144/60; PULSE 90; RESP 20; TEMP 97.6; O2SAT 92
[2017-06-21] MEDS: SODIUM CHLORIDE 0.9% FLUSH 10 ML FLUSH IV FLUSH SCH (08:30)
[2017-06-21] MEDS: DOCUSATE SODIUM 50 MG/SENNA 8.6 MG TAB PO SCH (09:00)
[2017-06-21] MEDS: PANTOPRAZOLE SOD 40 MG DELAYED RELEASE TAB PO SCH (09:00)
[2017-06-21] MEDS: SODIUM CHLOR 0.9% 1000 ML INJ 1,000 ML IV SCH (11:43)
[2017-06-21 12:00] VITALS: BP 150/70; PULSE 98; RESP 18; TEMP 97; O2SAT 93
[2017-06-21 13:26] VITALS: O2SAT 92
--- NOTE | 2017-06-21 14:44 | HHI.HCPN ---
Reason for visit a. To assist with evaluation and management of symptoms including: Debility and shortness of breath. b. To assist medical decision maker(s) with: better understanding of current medical conditions; weighing benefits/burdens of medical treatment options; making medical treatment decisions. . Subjective/Interval History Mrs. Hernandes is a 71 -year-old female with a medical history significant for metastatic breast cancer, delusional disorder, diabetes mellitus 2, CAD, CVA who was sent on 06/13/17 from [facility] for evaluation of anemia, hgb 6.3. 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 Originally diagnosed in January,. Patient being followed by Dr. Ceron. Patient was found to have multiple liver masses in 2015 and subsequently underwent a liver biopsy in Mar, 2016 which revealed metastatic poorly differentiated carcinoma consistent with breast primary in needle core biopsy of fibrotic liver. Palliative care consulted for further clarifications of goals of care given progression of metastatic disease, multiple ongoing chronic comorbidities, profound physical deconditioning and acute events. Patient seen in oncology floor. Resting in bed in no acute distress. Remains minimally interactive, briefly opening eyes to tactile stimuli. Not answering any questions or following commands. Remains on 6 L O2 via nasal cannula, oxygen saturation in the low 90s. Remains afebrile, stable hemodynamically. No new imaging for review. Laboratory workup today revealing stable hgb at 8.2 , WBC 10.7, platelet count 116. BUN/creatinine 64/1.89. Met with patient's son Lev at bedside. He just arrived from [place] given patient's worsening clinical condition. He tells me that he has been in contact with attending and nurses over the weekend. Medical update provided. Discussed patient remains requiring 5-6 L O2 via nasal cannula, decreased alertness for the past few days, limited by mouth intake. Discussed that patient remains at a very high risk for further complications, continue decline and given her progressive metastatic disease, profound physical deconditioning -worsen since November 2016, suspected GI bleed, pneumonia and ongoing multiple chronic comorbidities. Reviewed her poor prognosis given the above. Reviewed continuation of conservative management vs comfort directed care with hospice. Reviewed hospice philosophy and benefits. Son electing to transition patient to comfort-directed care with hospice, discharge to hospice care center for symptom management and end-of-life care. Case discussed with Magdi HERNANDEZ. . Family/friend interactions See interval note. . Advance Directives Living Will: Never completed Health Care Surrogate: Never completed Durable Power of Development Engineer: Never completed Advance Directive Specifics Health Care Surrogate(s): Son reports that no AD completed. As per [place] law, proxy decision maker falls to patient's only son Lev. . Significant change in goals: No code. DNR/DNI. Son electing to transition patient to comfortdirected care with hospice. . Objective Vital Signs Date Time Temp Pulse Resp B/P Pulse Ox O2 Delivery O2 Flow Rate FiO2 06/21/17 13:26 92 Nasal Cannula 5.00 06/21/17 12:00 97.0 98 18 150/70 93 06/21/17 08:39 Nasal Cannula 5.00 06/21/17 08:00 97.6 90 20 144/60 92 06/21/17 04:00 96.1 89 20 126/58 91 06/21/17 00:40 90 Nasal Cannula 6.00 06/21/17 00:00 96.2 98 20 164/73 90 06/20/17 21:00 Nasal Cannula 5.00 06/20/17 20:00 96.7 96 21 162/70 93 06/20/17 16:43 98.3 81 26 170/73 90 06/20/17 16:00 Intake & Output 06/21/17 06/21/17 07:00 19:00 Intake Total 0 ml 2042 ml Output Total 300 ml Balance -300 ml 2042 ml Intake Oral 0 ml IV Total 2042 ml Output Urine Total 300 ml Physical Exam CONSTITUTIONAL/GENERAL: This is an elderly, pale female in no acute distress. Obtunded. TUBES/LINES/DRAINS: PIV's, left chest Mediport, Hopkins catheter, NC, bilateral soft wrist restraints. SKIN: Very pale. No jaundice, rashes, or lesions. Ecchymoses on upper extremities. No wounds seen anteriorly. Skin temperature appropriate. Not diaphoretic. HEAD: Atraumatic. Normocephalic. EYES: Pupils equal and round and reactive. icterus sclera. No injection or drainage. Fundi not examined. ENT: Hearing appears normal. Nose without bleeding or purulent drainage. Moist oral mucosa. NECK: Trachea midline. Supple. CARDIOVASCULAR: Regular rate and rhythm. Peripheral pulses symmetric. RESPIRATORY/CHEST: Symmetric, mildly labored. Nasal cannula at 6 L. Mild inspiratory wheezes bilaterally. GASTROINTESTINAL: Abdomen distended, tender. Hepatomegaly. Bowel sounds present. GENITOURINARY: Without palpable bladder distension. Hopkins catheter in place. MUSCULOSKELETAL: Extremities without clubbing, cyanosis, or edema. NEUROLOGICAL: Obtunded, briefly opening eyes to tactile stimuli. Not following commands. PSYCHIATRIC: Appears calm. . Diagnostic Tests Laboratory Laboratory Tests Test 06/19/17 06/20/17 06/21/17 05:42 05:10 05:20 Vancomycin Level Trough 28.3 MCG/ML (5.0-10.0) White Blood Count 11.5 TH/MM3 10.7 TH/MM3 (4.0-11.0) (4.0-11.0) Red Blood Count 2.66 MIL/MM3 2.65 MIL/MM3 (4.00-5.30) (4.00-5.30) Hemoglobin 8.4 GM/DL 8.2 GM/DL (11.6-15.3) (11.6-15.3) Hematocrit 24.7 % 25.1 % (35.0-46.0) (35.0-46.0) Mean Corpuscular Volume 93.1 FL 94.7 FL (80.0-100.0) (80.0-100.0) Mean Corpuscular Hemoglobin 31.5 PG 31.1 PG (27.0-34.0) (27.0-34.0) Mean Corpuscular Hemoglobin 33.9 % 32.8 % Concent (32.0-36.0) (32.0-36.0) Red Cell Distribution Width 15.4 % 15.8 % (11.6-17.2) (11.6-17.2) Platelet Count 113 TH/MM3 116 TH/MM3 (150-450) (150-450) Mean Platelet Volume 11.0 FL 11.0 FL (7.0-11.0) (7.0-11.0) Neutrophils (%) (Auto) 71.2 % 76.5 % (16.0-70.0) (16.0-70.0) Lymphocytes (%) (Auto) 14.2 % 11.5 % (9.0-44.0) (9.0-44.0) Monocytes (%) (Auto) 11.6 % 9.3 % (0.0-8.0) (0.0-8.0) Eosinophils (%) (Auto) 2.3 % (0.0-4.0) 2.0 % (0.0-4.0) Basophils (%) (Auto) 0.7 % (0.0-2.0) 0.7 % (0.0-2.0) Neutrophils # (Auto) 8.2 TH/MM3 8.2 TH/MM3 (1.8-7.7) (1.8-7.7) Lymphocytes # (Auto) 1.6 TH/MM3 1.2 TH/MM3 (1.0-4.8) (1.0-4.8) Monocytes # (Auto) 1.3 TH/MM3 1.0 TH/MM3 (0-0.9) (0-0.9) Eosinophils # (Auto) 0.3 TH/MM3 0.2 TH/MM3 (0-0.4) (0-0.4) Basophils # (Auto) 0.1 TH/MM3 0.1 TH/MM3 (0-0.2) (0-0.2) CBC Comment DIFF FINAL DIFF FINAL Differential Comment Sodium Level 154 MEQ/L 155 MEQ/L (136-145) (136-145) Potassium Level 3.2 MEQ/L 3.5 MEQ/L (3.5-5.1) (3.5-5.1) Chloride Level 118 MEQ/L 122 MEQ/L (98-107) (98-107) Carbon Dioxide Level 24.9 MEQ/L 22.4 MEQ/L (21.0-32.0) (21.0-32.0) Anion Gap 11 MEQ/L (5-15) 11 MEQ/L (5-15) Blood Urea Nitrogen 65 MG/DL (7-18) 64 MG/DL (7-18) Creatinine 1.97 MG/DL 1.89 MG/DL (0.50-1.00) (0.50-1.00) Estimat Glomerular Filtration 25 ML/MIN (>89) 26 ML/MIN (>89) Rate Random Glucose 172 MG/DL 181 MG/DL (74-106) (74-106) Calcium Level 8.4 MG/DL 8.2 MG/DL (8.5-10.1) (8.5-10.1) Random Vancomycin Level 22.8 COMMENT 17.8 COMMENT Result Diagram: 06/21/17 0520 06/21/17 0520 Assessment and Plan Disease Oriented Problem List: (1) Respiratory distress (2) Anemia (3) JOHN (acute kidney injury) (4) Metastatic breast cancer (5) Hepatomegaly (6) Altered mental status Symptom Scale: (1) Shortness of breath 0-10 Scale: Unable to quantify Comment: Multifactorial, secondary to anemia, fluid overload, pulmonary infiltrates. Currently on 6 L nasal cannula. (2) Debility 0-10 Scale: Unable to quantify Comment: Progressive. Worsen since November 2016. Patient resident of long- term facility since December 2016. Pertinent Non-Medical Issues Psychosocial: Patient born and raised in [place] , has 1 son who resides in [place]. Patient lived independently prior to November 2016, resident of a long-term facility since December 2016 Spiritual: [facility]. Legal: Unknown if AD completed. Ethical issues impacting care: Patient unable to participate in medical decision -making. Son Lev acting as HCP. . Important Contacts Benjamin Dockery . . Prognosis Mrs. Hernandes is a 71 -year-old female with a medical history significant for metastatic breast cancer, delusional disorder, diabetes mellitus 2, CAD, CVA who was sent on 06/13/17 from [facility] for evaluation of anemia. Patient with progression of metastatic breast cancer, involvement to right lung and liver. Patient with progressive physical and cognitive decline, resident of long-term facility since December 2016. Overall prognosis is poor given her progression of metastatic disease, profound physical deconditioning since November 2016, GI bleed and ongoing multiple chronic comorbidities. Patient currently with PPS of 30%, respiratory distress requiring 6 L O2 via nasal cannula. Patient at high risk for further complications, continue decline and . Patient appears appropriate for hospice services given the above. Life expectancy of days to weeks if illness run its natural course. . Code Status: No Code Plan * CODE STATUS: DNR/DNI. Community DNR signed by patient on 01/11/17 in chart. * HEALTHCARE DECISION-MAKING: Patient unable to participate in medical decision- making, obtunded. Son reports that no advance directives completed. As per [place] law, proxy decision maker falls to patient's only son Lev Dockery. * GOALS OF CARE: Patient's son electing to transition patient to comfort directed care with hospice given her progressive metastatic disease, multiple ongoing acute on chronic comorbidities, acute events and profound physical deconditioning. Goal is to discharge to hospice care center for symptom management of dyspnea and end-of-life care. Patient appears to be actively dying at this time, life expectancy of hours to days if illness run its natural course. * SYMPTOMS: = Shortness of breath, Multifactorial, secondary to anemia, fluid overload, pulmonary infiltrates. Currently on 6 L nasal cannula. = Debility, Progressive. Worsen since November 2016. Patient resident of long-term facility since December 2016. * Case discussed with DAVID Fairbanks. * Palliative care contact information has been provided to patient's son. * Palliative care will continue to follow-up for further clarifications of goals of care as patient's clinical course continues to evolve. . Time Spent Total Floor Time (mins): 47 (Total time to include review of medical records, physical exam, goals of care conversation with patient's son and case discussion with bedside RN and mapper.) >50% Counseling/Coord of Care: Yes Attestation To help prompt me to consider important information that might be impacting today's encounter and assessment, information from prior notes written by myself or my colleagues may have been "brought forward" into today's note. My signature on this note, however, is an attestation that I personally performed the exam, history, and/or decision-making noted today, and, unless otherwise indicated, the interactions with patient, family, and staff as well as the review of records all occurred today. I also attest that the listed assessment and stated plan reflect my best clinical judgment today based on the combination of historical information, prior notes, and today's exam/ interactions. When time spent is documented, it refers only to time spent today by the signer, or if indicated, combined time spent today by collaborating physician/nurse practitioner. Wendy Chamorro Jun 21, 2017 14:44
--- NOTE | 2017-06-21 15:18 | HHI.DS ---
Discharge Summary Admission Date Jun 13, 2017 at 11:19 Discharge Date: Jun 21, 2017 Admitting Diagnosis hyperkalemia,symptomatic anemia,azotemia (1) Symptomatic anemia ICD Code: D64.9 (2) JOHN (acute kidney injury) ICD Code: N17.9 Diagnosis: Principal (3) Hyperkalemia ICD Code: E87.5 Diagnosis: Principal (4) Diabetes ICD Code: E11.9 Diagnosis: Principal Procedures None. Brief History - From Admission Written by Rajesh Almodovar, acting as scribe for Dr. Velazco on 06/13/17 at 12:17. This note was transcribed by JUANIS Motta. I, Dr. Shiva Velazco personally performed the history, physical exam, and medical decision making; and confirmed the accuracy of the information in the transcribed note. Authenticated by Dr. Shiva Velazco on 06/13/17 at 20:51. 71-year-old female with past medical history of delusional disorder, breast cancer, DM, CAD, CVA who was sent from SNF for nosebleed and anemia. The patient is currently intermittently lethargic. She does wake upon entering the room, but went back to sleep. She does withdraw to painful stimuli. She does answer to her name, but can't say what her last name is. She doesn't answer regarding orientation questions. She follows some commands, will move extremities to command, but won't open her eyes. She only speaks incoherently. Thus, history is obtained from ED communication and the medical record. The patient had been noted to be anemic lately. She had outpatient labs 06/08 which showed a hemoglobin of 6.5. She was not sent for transfusion at the time. Reportedly she was recently on aspirin, but this is no longer on her med rec from [facility]. She began having nosebleed today which spontaneously resolved by the time she presented to the ED. Her hemoglobin was found to be 6.3. The ED physician spoke to her PCP at the SNF, and reportedly patient is at her baseline mental status which is demented. The patient was Hemoccult negative. The patient was admitted for blood transfusion. Blood pressure is 130/58 during evaluation. CBC/BMP: 06/21/17 0520 06/21/17 0520 Significant Findings Laboratory Tests Test 06/19/17 06/20/17 06/21/17 05:42 05:10 05:20 Vancomycin Level Trough 28.3 MCG/ML (5.0-10.0) White Blood Count 11.5 TH/MM3 (4.0-11.0) Red Blood Count 2.66 MIL/MM3 2.65 MIL/MM3 (4.00-5.30) (4.00-5.30) Hemoglobin 8.4 GM/DL 8.2 GM/DL (11.6-15.3) (11.6-15.3) Hematocrit 24.7 % 25.1 % (35.0-46.0) (35.0-46.0) Platelet Count 113 TH/MM3 116 TH/MM3 (150-450) (150-450) Neutrophils (%) (Auto) 71.2 % 76.5 % (16.0-70.0) (16.0-70.0) Monocytes (%) (Auto) 11.6 % 9.3 % (0.0-8.0) (0.0-8.0) Neutrophils # (Auto) 8.2 TH/MM3 8.2 TH/MM3 (1.8-7.7) (1.8-7.7) Monocytes # (Auto) 1.3 TH/MM3 1.0 TH/MM3 (0-0.9) (0-0.9) Sodium Level 154 MEQ/L 155 MEQ/L (136-145) (136-145) Potassium Level 3.2 MEQ/L (3.5-5.1) Chloride Level 118 MEQ/L 122 MEQ/L (98-107) (98-107) Blood Urea Nitrogen 65 MG/DL (7-18) 64 MG/DL (7-18) Creatinine 1.97 MG/DL 1.89 MG/DL (0.50-1.00) (0.50-1.00) Estimat Glomerular Filtration 25 ML/MIN (>89) 26 ML/MIN (>89) Rate Random Glucose 172 MG/DL 181 MG/DL (74-106) (74-106) Calcium Level 8.4 MG/DL 8.2 MG/DL (8.5-10.1) (8.5-10.1) PE at Discharge GENERAL: NAD, A&Ox0 HEAD: Normocephalic. NECK: Supple, trachea midline. No lymphadenopathy. EYES: No scleral icterus. No injection or drainage. CARDIOVASCULAR: Regular rate and rhythm without murmurs, gallops, or rubs. RESPIRATORY: Breath sounds equal bilaterally. No accessory muscle use. GASTROINTESTINAL: Abdomen soft, non-tender, nondistended. MUSCULOSKELETAL: No cyanosis, or edema. SKIN: Warm and dry. NEURO: No focal neurological deficitis. Hospital Course Mrs. Hernandes is a 71-year-old female. She was admitted secondary to hyperkalemia and symptomatic anemia. Her respiratory status has been declining in her cognition is also in rapid decline. She has a history of breast cancer with metastasis to the liver and lung. She is an end-stage of her condition and has been deteriorating recently. GI bleed was found to be the cause of her symptomatic anemia. She was followed over the weekend to allow her some to visit and decide on his mother's course. She has elected for hospice care, she is a good candidate for hospice at this point. Hospice has visited this patient and along with palliative care has recommended inpatient hospice care. Patient is cleared for discharge to inpatient hospice today. Pt Condition on Discharge: Deteriorating Discharge Disposition: Hospice/Med Facility Discharge Time: <= 30 minutes Discharge Instructions DIET: Follow Instructions for: As Tolerated, No Restrictions Speech Therapy-Diet Recommends: Pureed Activities you can perform: Continue Bedrest Discontinued Medications: Aspirin DR (Aspirin EC) 81 Mg Tabdr 81 MG PO DAILY health #30 Ref 0 TAB Ciprofloxacin (Cipro) 250 Mg Tab 250 MG PO BID Infection Days 5 Ref 0 TAB Lisinopril (Lisinopril) 20 Mg Tab 20 MG PO DAILY #30 Ref 0 TAB Metformin (Glucophage) 500 Mg Tab 1000 MG PO 2 po bid health #120 Ref 0 TAB Olanzapine (Olanzapine) 10 Mg Tab 10 MG PO BID #60 Ref 0 TAB Migel Howard MD Jun 21, 2017 15:18
[2017-06-21] MEDS ORDERED: VANCOMYCIN INJ 1,250 MG in SODIUM CHLOR 0.9% 250 ML INJ 250 ML IV ONE (18:00)
== END 2017-06-21 17:50 | disposition hospice, inpatient (51) | DRG 811 ==
LOC: NEPC 08:30 → NEDA 11:19 → HOCB 12:54
PROVIDERS: ADMIT Hospitalist; ATTEND Hospitalist
PROC: 30233N1 Transfusion of Nonautologous Red Blood Cells into Peripheral Vein, Percutaneous Approach (ICD-10-PCS; principal; 2017-06-13)
DX: D64.9 Anemia, unspecified (principal); G93.41 Metabolic encephalopathy; N17.9 Acute kidney failure, unspecified; J18.9 Pneumonia, unspecified organism; J90 Pleural effusion, not elsewhere classified; C78.00 Secondary malignant neoplasm of unspecified lung; C78.7 Secondary malignant neoplasm of liver and intrahepatic bile duct; E87.2 Acidosis; E11.22 Type 2 diabetes mellitus with diabetic chronic kidney disease; Z79.84 Long term (current) use of oral hypoglycemic drugs; F03.90 Unspecified dementia, unspecified severity, without behavioral disturbance, psychotic disturbance, mood disturbance, and anxiety; E87.5 Hyperkalemia; R04.0 Epistaxis; Z79.82 Long term (current) use of aspirin; I12.9 Hypertensive chronic kidney disease with stage 1 through stage 4 chronic kidney disease, or unspecified chronic kidney disease; N18.9 Chronic kidney disease, unspecified; Z86.73 Personal history of transient ischemic attack (TIA), and cerebral infarction without residual deficits; Z85.3 Personal history of malignant neoplasm of breast; I25.10 Atherosclerotic heart disease of native coronary artery without angina pectoris; Z95.1 Presence of aortocoronary bypass graft; Z95.5 Presence of coronary angioplasty implant and graft; I25.2 Old myocardial infarction; Z95.2 Presence of prosthetic heart valve; F22 Delusional disorders; Z51.5 Encounter for palliative care; Z66 Do not resuscitate; Z78.1 Physical restraint status; M19.90 Unspecified osteoarthritis, unspecified site; K21.9 Gastro-esophageal reflux disease without esophagitis; Z96.642 Presence of left artificial hip joint
CPT/HCPCS: 36430; 36600; 71010; 71250; 74176; 80048; 80053; 80202; 81001; 82105; 82378; 82805; 82948; 83605; 85014; 85018; 85025; 85610; 85730; 86301; 86850; 86900; 86901; 86920; 87086; 93005; 94640; 94664; 96374; 96375; J1630; J1815; J1940; J2543; J3370; J3480; J7030; J7040; J7050; J7611; P9016